=== PATIENT | female | born 1940 | race Caucasian/White ===

== ENCOUNTER → 2017-11-05 09:16 | Outpatient (CLI) | payer MEDICARE, SELFPAY ==
[2017-11-05 12:44] LABS: Vitamin B12 411 pg/mL (211-911)
[2017-11-05 16:28] LABS: ALB/GLOB Ratio 1.1 RATIO (0.9-2.4); AST(SGOT) 25 U/L (15-37); Alanine Aminotransfer ALT/SGPT 23 U/L (13-56); Albumin, Serum 3.8 g/dL (3.2-5.0); Alkaline Phosphatase 89 U/L (45-117); Anion Gap 10 (5-15); BUN 12 mg/dL (7-18); BUN/Creat Ratio 14.8 RATIO (10-20); CRP < 2.90 mg/L (0.0-3.0); Calcium,Total 8.6 mg/dL (8.5-10.1); Chloride 96 mmol/L (98-107); Creatinine, Serum 0.81 mg/dL (0.55-1.02); EST Glomerular Filtration Rate 73 mL/min (>60); Est Glom Filt Rate - Afr Amer 88 mL/min (>60); Globulin 3.4 g/dL (2.2-4.2); Glucose 90 mg/dL (74-106); Potassium 4.5 mmol/L (3.5-5.1); Protein, Total 7.2 g/dL (6.4-8.2); Sodium Level 137 mmol/L (136-145)
[2017-11-09 12:52] LABS: ANTINUCLEAR ANTIBODIES DIRECT Negative (Negative)
== END ==
PROVIDERS: Family Provider Family Medicine; PCP Family Medicine; Visit Provider Family Medicine
DX: R53.82 Chronic fatigue, unspecified (principal); G62.9 Polyneuropathy, unspecified; G47.00 Insomnia, unspecified; R06.89 Other abnormalities of breathing
CPT/HCPCS: 36415; 80053; 82607; 86038; 86140; 86225; 86235

== ENCOUNTER → 2017-12-16 12:09 | Outpatient (CLI) | payer MEDICARE, SELFPAY ==
[2017-12-16 13:27] LABS: Hematocrit 40.3 % (37-47); Hemoglobin 13.3 g/dl (12.0-15.0); Mean Corpuscular Hgb 30.8 pg (27.0-32.0); Mean Corpuscular Volume 93.3 fL (81-99); Mean Platelet Vol. 10.7 fl (6.2-12.0); Platelet Count 206 K/mm3 (150-450); RBC Distribution Width SD 41.1 fl (35.1-43.9); Red Blood Count 4.32 M/mm3 (4.2-5.4); Scan Indicated on CBC? Y/N NO; White Blood Count 4.7 K/mm3 (4.4-11.0)
== END ==
PROVIDERS: Family Provider Family Medicine; PCP Family Medicine; Visit Provider Nurse Practitioner Acute Care
DX: G25.81 Restless legs syndrome (principal)
CPT/HCPCS: 36415; 85027

== ENCOUNTER → 2017-12-29 20:17 | Outpatient (CLI) | payer MEDICARE, SELFPAY | PROVIDERS: Family Provider Family Medicine; PCP Family Medicine; Visit Provider Nurse Practitioner Acute Care | DX: G47.10 Hypersomnia, unspecified (principal) | CPT/HCPCS: 95810 ==

== ENCOUNTER → 2018-01-07 10:08 | Outpatient (CLI) | payer MEDICARE, SELFPAY | PROVIDERS: Family Provider Family Medicine; PCP Family Medicine; Visit Provider Family Medicine | DX: R53.82 Chronic fatigue, unspecified (principal); F09 Unspecified mental disorder due to known physiological condition; I49.9 Cardiac arrhythmia, unspecified | CPT/HCPCS: 36415; 82533 ==

== ENCOUNTER → 2018-01-27 20:25 | Outpatient (CLI) | payer MEDICARE, SELFPAY | PROVIDERS: Family Provider Family Medicine; PCP Family Medicine; Visit Provider Nurse Practitioner Acute Care | DX: G47.33 Obstructive sleep apnea (adult) (pediatric) (principal) | CPT/HCPCS: 95811 ==

== ENCOUNTER → 2018-03-04 08:38 | Outpatient (CLI) | payer MEDICARE, SELFPAY | PROVIDERS: Family Provider Family Medicine; PCP Family Medicine; Visit Provider Internal Medicine Critical Care Medicine | DX: G47.33 Obstructive sleep apnea (adult) (pediatric) (principal) | CPT/HCPCS: 98960; G0463 ==

== ENCOUNTER → 2018-03-30 08:54 | Outpatient (CLI) | payer MEDICARE, SELFPAY ==
--- NOTE | 2018-03-30 14:31 | NEURO ---
NCS and/or EMG Patient Report Ordering Doctor: Christiano Diehl DATE OF SERVICE: 03/30/18 Rosenda Browne is a 77-year-old female presents for electrodiagnostic testing of the lower limbs. She has chief complaint of numbness and tingling in both legs, worsening over the past few years. Electrodiagnostic findings: Right peroneal motor nerve demonstrates prolonged distal latency with normal amplitude and conduction velocity. Normal left peroneal motor response. Normal tibial motor response bilaterally. Borderline prolonged right common peroneal and left tibial F wave. H reflex prolonged bilaterally. Absent right sural response. Prolonged left sural latency. Absent right medial plantar response needle EMG testing shows no evidence of denervation in any muscles tested. Motor unit action potentials were of normal amplitude and duration. Electrodiagnostic impression: This is an abnormal study in the lower limbs. 1. Electrodiagnostic findings suggestive of peripheral polyneuropathy, with primary involvement of sensory nerve fibers. 2. No electrodiagnostic evidence for lumbosacral radiculopathy. If there are any further questions, please do not hesitate to contact me
== END ==
PROVIDERS: Family Provider Family Medicine; PCP Family Medicine; Referring Provider Family Medicine; Visit Provider Family Medicine
DX: G62.9 Polyneuropathy, unspecified (principal); R20.2 Paresthesia of skin
CPT/HCPCS: 95886; 95913

== ENCOUNTER → 2018-04-12 11:54 | Outpatient (CLI) | payer MEDICARE, SELFPAY ==
[2018-04-18 16:07] LABS: Lyme IgG P18 Ab Absent (.); Lyme IgG P23 Ab Absent (.); Lyme IgG P28 Ab Absent (.); Lyme IgG P30 Ab Absent (.); Lyme IgG P39 Ab Absent (.); Lyme IgG P41 Ab Absent (.); Lyme IgG P45 Ab Absent (.); Lyme IgG P58 Ab Absent (.); Lyme IgG P66 Ab Absent (.); Lyme IgG P93 Ab Absent (.); Lyme IgM P23 Ab Present (.); Lyme IgM P39 Ab Absent (.); Lyme IgM P41 Ab Absent (.)
[2018-04-20 13:10] LABS: Hep C Antibodies <0.1 s/co ratio (0.0-0.9); Lead, Blood Adult 16+yrs 2 ug/dL (0-4); Lyme IgG WB Interpretation Negative (.); Lyme IgM WB Interpretation Negative (.)
== END ==
PROVIDERS: Visit Provider Family Medicine
DX: F09 Unspecified mental disorder due to known physiological condition (principal); G62.9 Polyneuropathy, unspecified; R53.82 Chronic fatigue, unspecified
CPT/HCPCS: 36415; 83655; 86617; 86803

== ENCOUNTER → 2018-05-20 10:14 | Outpatient (CLI) | payer MEDICARE, SELFPAY ==
[2018-04-13 10:25] VITALS: BMI 21.6
[2018-05-20 11:25] LABS: Vitamin B12 369 pg/mL (211-911)
[2018-05-20 11:32] LABS: Ferritin 94 ng/mL (8-252); Iron 84 ug/dL (50-170); Iron Binding Capacity,Total 322 ug/dL (250-450); PERCENT IRON SATURATION 26.1 % (15.0-55.0)
--- OUTSIDE RECORDS SUMMARY | 2018-07-15 05:18 | XMS RPT_ITS ---
:1940 Author Organization [place] Support Name Relationship Address Phone REDSHANNAN ONTIVEROSELE Unavailable Unavailable + REBECA LARA Unavailable Unavailable + [facility] [place] [place] [address] R Unavailable Unavailable Unavailable TERRY OSCAR Unavailable . + ., [place] . REBECA LARA Unavailable . + [facility] [place] [address] R Unavailable Unavailable Unavailable CELESTINA TERRY Unavailable . + ., [place] . REBECA LARA Unavailable . + [facility] [place] [address] R Unavailable Unavailable Unavailable REDWESTON TERRY Unavailable Unavailable + REBECA LARA Unavailable Unavailable + [facility] [place] [address] R Unavailable Unavailable Unavailable REBECA LARA Unavailable [address] + [place] [address] R Unavailable Unavailable Unavailable REBECA LARA Unavailable [address] + [place] [address] R Unavailable Unavailable Unavailable REBECA LARA Unavailable [address] + [place] [address] R Unavailable Unavailable Unavailable REBECA LARA Unavailable [address] + [place], [place] R Unavailable Unavailable Unavailable REBECA LARA Unavailable [address] + [place], [place] R Unavailable Unavailable Unavailable REBECA LARA Unavailable [address] + [place], [place] R Unavailable Unavailable Unavailable REBECA LARA Unavailable [address] + [place], [place] R Unavailable Unavailable Unavailable REBECA LARA Unavailable [address] + [place], [place] / R Unavailable Unavailable Unavailable LARA, REBECA Unavailable [address] + [place], [place] / R Unavailable Unavailable Unavailable LARA, REBECA Unavailable [address] + [place], [place] / R Unavailable Unavailable Unavailable LARA, REBECA Unavailable [address] + [place], [place] / R Unavailable Unavailable Unavailable LARA, REBECA Unavailable [address] + [place], [place] / R Unavailable Unavailable Unavailable LARA, REBECA Unavailable [address] + [place], [place] / R Unavailable Unavailable Unavailable LARA, REBECA Unavailable [address] + [place], [place] / R Unavailable Unavailable Unavailable Care Team Providers Name Role Phone Catherine Diehl Attending Unavailable Shanita, Catherine Primary Care Unavailable Tania Yabrra Attending Unavailable Shanita, Catherine Primary Care Unavailable Shanita, Catherine Attending Unavailable Shanita, Catherine Referring Unavailable Shanita, Catherine Primary Care Unavailable Soumya Milner Attending Unavailable Soumya Milner Referring Unavailable Shanita, Catherine Primary Care Unavailable Tania Ybarra Attending Unavailable Primay Care Physicia, No Primary Care Unavailable Deana, [place] Attending Unavailable Deana, Benji Referring Unavailable Laureano Trevizo Attending Unavailable Primay Care Physicia, No Primary Care Unavailable Scar Boyle D.O. Attending Unavailable Primay Care Physicia, No Referring Unavailable Laureano Trevizo Attending Unavailable Primay Care Physicia, No Primary Care Unavailable Tania Ybarra Attending Unavailable Shanita, Catherine Referring Unavailable Shanita, Catherine Attending Unavailable Shanita, Catherine Primary Care Unavailable Tania Ybarra Attending Unavailable Tania Ybarra Referring Unavailable Shanita, Catherine Primary Care Unavailable Tania Ybarra Attending Unavailable Shanita, Catherine Referring Unavailable Shanita, Catherine Attending Unavailable Scar Boyle D.O. Attending Unavailable Shanita, Catherine Primary Care Unavailable Scar Boyle D.O. Attending Unavailable Shanita, Catherine Referring Unavailable Tania Ybarra Attending Unavailable Shanita, Catherine Referring Unavailable Tania Ybarra Attending Unavailable Shanita, Catherine Primary Care Unavailable LAUREANO TREVIZO Attending Unavailable LAUREANO TREVIZO Referring Unavailable JUAN JOSE DAVIS JR Attending Unavailable CATHERINE DIEHL Referring Unavailable SANTHOSH, LAUREANO E Attending Unavailable KALI TREVIZONETH E Referring Unavailable Landon Otto Admitting Unavailable Landon Otto Attending Unavailable Landon Mcpherson Primary Care Unavailable Landon Otto Attending Unavailable Landon Mcpherson Primary Care Unavailable Landon Otto Admitting Unavailable JUAN JOSE DAVIS JR Attending Unavailable SANTHOSH, LAUREANO E Referring Unavailable SANTHOSH, LAUREANO E Attending Unavailable SANTHOSH, LAUREANO E Referring Unavailable SANTHOSH, LAUREANO Attending Unavailable SANTHOSH, LAUREANO Referring Unavailable SANTHOSH, LAUREANO Attending Unavailable SANTHOSH, LAUREANO Referring Unavailable SANTHOSH, LAUREANO Attending Unavailable SANTHOSH, LAUREANO Referring Unavailable IMCA Primary Care Unavailable SANTHOSH, LAUREANO Attending Unavailable SANTHOSH, LAUREANO Referring Unavailable IMCA Primary Care Unavailable JUAN JOSE DAVIS Attending Unavailable IMCA Referring Unavailable IMCA Primary Care Unavailable PROBLEMS PROBLEMS DATE TYPE CONDITION / CODE ATTENDING STATUS SOURCE 04/13/2018 Unknown F70 - Mild Ybarra, 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 / Hospital F70(ICD-10) Repository 04/12/2018 Unknown R53.82 - Chronic ShanitaCatherine carrillo Active [place] fatigue, unspecified Community / R53.82(ICD-10) Hospital Repository 04/12/2018 Unknown 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, Catherine Active [place] Polyneuropathy, Community unspecified / Hospital G62.9(ICD-10) Repository 04/12/2018 Unknown 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 Community to known Hospital physiological Repository condition / F09(ICD-10) 03/21/2018 Active Restless legs DAVIS JR, Active [place] syndrome / [facility] Other G25.81(ICD-10) [place] Repository 03/21/2018 Active Obstructive sleep ROBBIN JR, Active [place] apnea (adult) [facility] Other (pediatric) / [place] G47.33(ICD-10) Repository 03/21/2018 Active Other malaise / DAVIS JR, Active [place] R53.81(ICD-10) [facility] Other [place] Repository 03/21/2018 Active Other fatigue / DAVIS JR, Active [place] R53.83(ICD-10) [facility] [place] Repository 03/21/2018 Active Anesthesia of skin / DAVIS JR, Active [place] R20.0(ICD-10) [facility] Repository 02/23/2018 Unknown G47.33 - Obstructive Scar Boyle, Active [place] sleep apnea (adult) D.O. Community (pediatric) / Hospital G47.33(ICD-10) Repository 12/29/2017 Unknown G47.10 - Hypersomnia, Ybarra, Active [place] unspecified / [facility] G47.10(ICD-10) Hospital Repository 12/16/2017 Unknown G25.81 - Restless Ybarra, Active [place] legs syndrome / [facility] G25.81(ICD-10) Hospital Repository 11/05/2017 Unknown G47.00 - Insomnia, Catherine Diehl Active [place] unspecified / [facility] G47.00(ICD-10) Hospital Repository 11/05/2017 Unknown R06.89 - Other Catherine Diehl Active [place] abnormalities of Community breathing / Hospital R06.89(ICD-10) Repository 10/26/2017 Active Supraventricular SANTHOSH, Active [place] tachycardia / [facility] Other I47.1(ICD-10) [place] Repository 06/23/2017 Active Cardiac arrhythmia, SANTHOSH, Active [place] unspecified / [facility] Other I49.9(ICD-10) [place] Repository 06/23/2017 Admitting Unknown / SANTHOSH, Active [place] [facility] diagnosis UNK(Unknown) [facility] Repository 07/22/2017 Unknown R06.09 - Other forms Santhosh, Active [place] of dyspnea / [facility] R06.09(ICD-10) Hospital Repository 07/13/2017 Unknown R06.02 - Shortness of Deana, [place] Active [place] breath / Community R06.02(ICD-10) Hospital Repository PROCEDURES PROCEDURES No Procedure Records FoundRESULTS RESULTS VITAMIN B12 Collected: 05/20/2018 Status: F Source: [place] 10:22 AM [facility] REPOSITORY TYPE CODE TESTS RESULT OUT OF RANGE REFERENCE UNITS LAB L503.0105 211-911 pg/mL Normal Vitamin B12 369 Performed By: #### L503.0105 #### [facility] [address] [place], [address] IRON+IRON BINDING Collected: 05/20/2018 Status: F Source: [place] 10:22 AM [facility] REPOSITORY Order Comment: Is Patient Taking Vitamins or Folic Acid Supplements? N TYPE CODE TESTS RESULT OUT OF RANGE REFERENCE UNITS LAB L503.6075 250-450 ug/dL TIBC Normal 322 LAB L503.6150 50-170 ug/dL IRON Normal 84 LAB L503.6250 15.0-55.0 % IRON Normal SATURATION 26.1 Performed By: #### L503.6030, L503.6550, L506.0250 #### [facility] [address] [place], [address] FERRITIN Collected: 05/20/2018 Status: F Source: [place] 10:22 AM [facility] REPOSITORY Order Comment: Is Patient Taking Vitamins or Folic Acid Supplements? N TYPE CODE TESTS RESULT OUT OF RANGE REFERENCE UNITS LAB L503.6550 8-252 ng/mL Normal FERRITIN 94 Performed By: #### L503.6030, L503.6550, L506.0250 #### [facility] [address] [place], [address] FOLATES, (FOLIC ACID) Collected: 05/20/2018 Status: F Source: [place] 10:22 AM [facility] REPOSITORY Order Comment: Is Patient Taking Vitamins or Folic Acid Supplements? N TYPE CODE TESTS RESULT OUT OF RANGE REFERENCE UNITS LAB L506.0250 3.1-55.4 ng/mL Normal FOLATES 15.90 Performed By: #### L503.6030, L503.6550, L506.0250 #### [facility] [address] 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 [place] HICKS Fatigue ADHERENCE TO GUIDELINES VINCENT-I or ARB for HF with prior LVEF<40 (NQF 0081) - N/A ASA or Plavix for ASHD (NQF 0067) - N/A Beta lele for ASHD with prior NE or prior LVEF<40 (NQF 0070) - N/A Beta lele for HF with prior LVEF<40 (NQF 0083) - N/A VINCENT-I or ARB for ASHD with DM or prior LVEF<40 (NQF 0066) - N/A Statin therapy for ASHD or FHL or DM - N/A BMI documented and plan if >25 (NQF 0421) - lifestyle recommendation form Tobacco use screening and referral (NQ 0028) - lifestyle recommendation form Recommendation for whole food, plant based diet - lifestyle recommendation form CLINICAL IMPRESSION/PLAN: Zoe Cabrales has frequent ventricular ectopy as well as history of SVT. She would benefit from suppression of her ventricular arrhythmia. She is willing to try low-dose verapamil and I will send a new prescription for her. I've asked her to call me with vital signs in one week. Once we achieve a reasonable dose, Holter monitor can be repeated to see if it is efficacious at suppressing her ventricular ectopy, which was as much as 16% on her Holter monitor. I will see her in 2 months or as needed. I've asked her to call me promptly should she have any side effects from the verapamil. Written and verbal health teaching given to patient, patient verbalizes understanding and agrees with treatment plan. DIAGNOSIS FOR VISIT: Ventricular arrhythmia HISTORY OF PRESENT ILLNESS Zoe Cabrales returns for follow-up of her cardiac arrhythmias. She reports stable exercise tolerance. She's had no chest discomfort. She denies orthopnea, edema, syncope, TIAs, amaurosis and claudication. She's had rare sensation of palpitation. However, her monitor occasionally reads irregular heart rates. ALLERGIES: ALLERGIES No Known Allergies CURRENT OUTPATIENT MEDICATIONS: gabapentin (NEURONTIN) 300 mg capsule Take 300 mg by mouth four times daily. CPAP colestipol (COLESTID) 1 gram tablet Take 1 tablet by mouth twice daily. cholecalciferol (VITAMIN D) 1,000 unit tab tablet Take 1 tablet by mouth once daily. armodafinil (NUVIGIL) 150 mg tab Take 1 tablet by mouth once daily for 30 days. clonazePAM (KLONOPIN) 0.5 mg tablet Take 1/2 tablet at bedtime. escitalopram oxalate (LEXAPRO) 10 mg tablet Take 1 tablet by mouth once daily. PHYSICAL EXAMINATION: VITAL SIGNS: BP 128/55 Pulse 72 Ht 5' 7 (1.70m) Wt 143 lb 1.6 oz (64.9kg) BMI 22.41 kg/(m2). Chest: Clear to auscultation. Trachea is midline. Air entry is equal. Cardiac: Bigeminal rhythm. S1 and S2 are normal. PMI is nondisplaced. There is a soft systolic ejection murmur. Carotids are brisk without bruits. JVP is less than 10 cm. Abdomen: Soft and nontender. There are no pulsatile masses or bruits. No liver enlargement. Bowel sounds are active. Extremities: No edema. Pulses are intact and symmetrical. Recent labs reviewed. Vitamin D level has improved. Thyroid is normal. 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 [place] HICKS Fatigue ADHERENCE TO GUIDELINES VINCENT-I or ARB for HF with prior LVEF<40 (NQF 0081) - N/A ASA or Plavix for ASHD (NQF 0067) - N/A Beta lele for ASHD with prior NE or prior LVEF<40 (NQF 0070) - N/A Beta lele for HF with prior LVEF<40 (NQF 0083) - N/A VINCENT-I or ARB for ASHD with DM or prior LVEF<40 (NQF 0066) - N/A Statin therapy for ASHD or FHL or DM - N/A BMI documented and plan if >25 (NQF 0421) - lifestyle recommendation form Tobacco use screening and referral (NQF 0028) - lifestyle recommendation form Recommendation for whole food, plant based diet - lifestyle recommendation form CLINICAL IMPRESSION/PLAN: Zoe Cabrales has frequent ventricular ectopy as well as history of SVT. She would benefit from suppression of her ventricular arrhythmia. She is willing to try low-dose verapamil and I will send a new prescription for her. I've asked her to call me with vital signs in one week. Once we achieve a reasonable dose, Holter monitor can be repeated to see if it is efficacious at suppressing her ventricular ectopy, which was as much as 16% on her Holter monitor. I will see her in 2 months or as needed. I've asked her to call me promptly should she have any side effects from the verapamil. Written and verbal health teaching given to patient, patient verbalizes understanding and agrees with treatment plan. DIAGNOSIS FOR VISIT: Ventricular arrhythmia HISTORY OF PRESENT ILLNESS Zoe Cabrales returns for follow-up of her cardiac arrhythmias. She reports stable exercise tolerance. She's had no chest discomfort. She denies orthopnea, edema, syncope, TIAs, amaurosis and claudication. She's had rare sensation of palpitation. However, her monitor occasionally reads irregular heart rates. ALLERGIES: ALLERGIES No Known Allergies CURRENT OUTPATIENT MEDICATIONS: gabapentin (NEURONTIN) 300 mg capsule Take 300 mg by mouth four times daily. CPAP colestipol (COLESTID) 1 gram tablet Take 1 tablet by mouth twice daily. cholecalciferol (VITAMIN D) 1,000 unit tab tablet Take 1 tablet by mouth once daily. armodafinil (NUVIGIL) 150 mg tab Take 1 tablet by mouth once daily for 30 days. clonazePAM (KLONOPIN) 0.5 mg tablet Take 1/2 tablet at bedtime. escitalopram oxalate (LEXAPRO) 10 mg tablet Take 1 tablet by mouth once daily. PHYSICAL EXAMINATION: VITAL SIGNS: BP 128/55 Pulse 72 Ht 5' 7 (1.70m) Wt 143 lb 1.6 oz (64.9kg) BMI 22.41 kg/(m2). Chest: Clear to auscultation. Trachea is midline. Air entry is equal. Cardiac: Bigeminal rhythm. S1 and S2 are normal. PMI is nondisplaced. There is a soft systolic ejection murmur. Carotids are brisk without bruits. JVP is less than 10 cm. Abdomen: Soft and nontender. There are no pulsatile masses or bruits. No liver enlargement. Bowel sounds are active. Extremities: No edema. Pulses are intact and symmetrical. Recent labs reviewed. Vitamin D level has improved. Thyroid is normal. Electronically Signed: Laureano Trevizo MD April 29, 2018 11:14 AM CC: Catherine Diehl, DO Laureano Trevizo MD 04/29/2018 11:19 AM Signed LIFESTYLE CHANGE A healthy lifestyle is the most important component of your overall treatment plan. 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 EAT A WHOLE FOOD, PLANT BASED DIET The nutrition your body gets is more important than the medicine you take. What matters most is the overall way you eat. We encourage you to minimize the use of animal products (which include dairy and all meats except fatty fish) and use whole, unprocessed plant foods to provide your protein, vitamins and other nutrients. We have a lot of information to share with you on this topic. This is not a diet. It is a way of life that you will keep with you. EXERCISE REGULARLY It is not important to spend hours in the gym, lifting weights and perspiring heavily. A total of 2-3 hours per week of aerobic (causing you to be moderately short of breath) exercise is sufficient to improve your health. Talk to us before you begin a new exercise program, if you have heart disease or experience shortness of breath or chest pain. REDUCE STRESS Chronic emotional and physical stress leads to disease. Ways of reducing stress include meditation, visualization, prayer, yoga and other forms of relaxation therapy. Consistency is the durham. Find a technique that works for you and do it every day. CULTIVATE RELATIONSHIPS Loneliness and isolation have a major negative impact on health. Seek out others who can love, care for and nurture you. Avoid hurtful relationships. MAINTAIN IDEAL BODY WEIGHT The best way to do this is to do all the things above. Our bodies naturally find the right weight if we keep moving and feed ourselves the right food. If your BMI is greater than 25, we strongly recommend a referral to a weight management program. Please speak to us or your family physician about available programs. AVOID NICOTINE IN ALL FORMS This includes all tobacco products, whether chewed, smoked, vaped, or rubbed on the skin. Smoking cessation programs, which can make use of tobacco substitutes, medications to suppress cravings and behavior management, are available. Please contact your family physician about programs in your area. Referring Provider: LAUREANO TREVIZO [[id number]] Allergies As of Date: 04/29/2018 (No Known Allergies) Date Reviewed: 04/29/2018 Reviewed by: Mar Buck MA - Fully Assessed Reason for Visit: Established Patient [175] Primary Visit Diagnosis:SVT (supraventricular tachycardia) (HCC) [I47.1] Other Visit Diagnosis:Ventricular arrhythmia [I49.9] Order(s):verapamil ER (VERELAN) 120 mg 24 hr capsuleTake 1 capsule by mouth once daily.Disp: 30 capsuleRfl: 6 Prescriptions as of 04/29/2018 Sig: GABAPENTIN 300 MG CAPSULE Take 300 mg by mouth four lisha* CPAP COLESTIPOL 1 GRAM TABLET Take 1 tablet by mouth twice * CHOLECALCIFEROL (VITAMIN D3) * Take 1 tablet by mouth once d* VERAPAMIL ER 120 MG 24 HR CAP* Take 1 capsule by mouth once * ARMODAFINIL 150 MG TABLET Take 1 tablet by mouth once d* CLONAZEPAM 0.5 MG TABLET Take 1/2 tablet at bedtime. ESCITALOPRAM 10 MG TABLET Take 1 tablet by mouth once d* Patient taking differently: Take 20 mg by mouth once benji* Problem List As Of Date 04/29/2018 Noted Resolved SVT (supraventricular tachycardia) (HCC) [I47.1]INVALID FOR* Other instructions from your clinician: LIFESTYLE CHANGE A healthy lifestyle is the most important component of your overall treatment plan. 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 EAT A WHOLE FOOD, PLANT BASED DIET The nutrition your body gets is more important than the medicine you take. What matters most is the overall way you eat. We encourage you to minimize the use of animal products (which include dairy and all meats except fatty fish) and use whole, unprocessed plant foods to provide your protein, vitamins and other nutrients. We have a lot of information to share with you on this topic. This is not a diet. It is a way of life that you will keep with you. EXERCISE REGULARLY It is not important to spend hours in the gym, lifting weights and perspiring heavily. A total of 2-3 hours per week of aerobic (causing you to be moderately short of breath) exercise is sufficient to improve your health. Talk to us before you begin a new exercise program, if you have heart disease or experience shortness of breath or chest pain. REDUCE STRESS Chronic emotional and physical stress leads to disease. Ways of reducing stress include meditation, visualization, prayer, yoga and other forms of relaxation therapy. Consistency is the durham. Find a technique that works for you and do it every day. CULTIVATE RELATIONSHIPS Loneliness and isolation have a major negative impact on health. Seek out others who can love, care for and nurture you. Avoid hurtful relationships. MAINTAIN IDEAL BODY WEIGHT The best way to do this is to do all the things above. Our bodies naturally find the right weight if we keep moving and feed ourselves the right food. If your BMI is greater than 25, we strongly recommend a referral to a weight management program. Please speak to us or your family physician about available programs. AVOID NICOTINE IN ALL FORMS This includes all tobacco products, whether chewed, smoked, vaped, or rubbed on the skin. Smoking cessation programs, which can make use of tobacco substitutes, medications to suppress cravings and behavior management, are available. Please contact your family physician about programs in your area. Prescriptions ordered this encounter Disp Refills Start End VERAPAMIL ER 120 MG 24 HR CAPSULE,EX* 30 c* 6 04/29/2018 Route: ORAL Sig: Take 1 capsule by mouth once daily. Encounter Status:Closed by LAUREANO TREVIZO MD on 04/29/18 PULMONARY VISIT REPORT Observed: 04/15/2018 Status: F Source: [place] 1:26 PM [facility] REPOSITORY [facility] [address] [place] [address] OFFICE VISIT Date of Service: 04/13/18 MR#: [id number] Acct: [id number] Name: ZOE CABRALES Rep #: [id number] : 1940 Provider: Tania Ybarra Age/Sex: 77/F Location: [facility] Status: Signed Assessment AND Plan 1. DHEERAJ (obstructive sleep apnea) G47.33 Plan Patient is using and benefiting from Pap therapy. No indication for titration study at this time. Continue to encourage weight loss. Contact the office for any new or worsening symptoms in the meantime. Follow-up in 6 months. 2. Restless legs syndrome (RLS) G25.81 Plan This patient was previously following with a neurologist regarding her restless leg syndrome and other diagnoses. She is interested in establishing care with a local neurologist, will be referred appropriately. Discussed with the patient that if the neurologist would like to also be in control of her DHEERAJ treatment that we would be in agreement with that, however if they would like to manage her other diagnosis and leave the DHEERAJ test we would be happy to continue to take care of her. I am willing to refill her gabapentin until she can get in with Dr. Chino's office. Plan Detail Other Orders Referrals: Other Medications New: Follow Up 6 Months (DMB) HPI 6 wk FU: Chief Complaint: PAP Ed follow-up HPI Comments Details: Zoe is a 77 year old female that appears healthy. Here today for follow-up for PAP ed and PAP compliance. She is using PAP therapy and is benefitting from it. She is not experiencing dry mouth. She states that she is using the nose-pillows and they work well, and when she notices leaks, she makes manual adjustments. She said that it mostly happens because she sleeps on her side. She denies fever, chills, cough and nasal discharge; she has not required any recent medical interventions. She is requesting refills for her gabapentin and her clonazepam, these were previously prescribed by a neurologist that she was seen. She is interested in establishing care with a local neurologist. 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 Accompanied by: Self Is patient in pain?: No Allergies No Known Allergies Allergy (Unverified 04/13/18 07:32) Medications cholecalciferol (vitamin D3) 1,000 unit capsule 1,000 unit PO ONCE 05/31/17 [History Confirmed 04/13/18] clonazepam 0.5 mg tablet 0.5 mg PO QHS 05/31/17 [History Confirmed 04/13/18] escitalopram 20 mg tablet 20 mg PO QDAY tab 02/23/18 [History Confirmed 04/13/18] colestipol 1 gram tablet 1 g PO BID tab 04/13/18 [History Confirmed 04/13/18] gabapentin 300 mg capsule 300 mg PO .qid #120 cap 04/15/18 [Rx Confirmed 04/15/18] [facility] History Fatigue (Chronic) Hypercapnia (Chronic) Mild mental slowing (Chronic) Osteoarthritis (Chronic) Restless leg syndrome (Chronic) Supraventricular tachycardia (Chronic) Weakness (Chronic) Surgical History H/O prior ablation treatment (Resolved) S/P ORIF (open reduction internal fixation) fracture (Resolved) Social History Smoking Status: Former smoker quit date: 06/21/64 how long ago did patient quit smokin alcohol intake: never substance use type: does not use Review of Systems Const CONSTITUTIONAL: Negative anorexia, body ache, chills, daytime sleepiness, fever(s), night sweats, oral thrush, stops breathing during sleep, weight loss, sleeping in chair, fatigue, weight loss, weight gain, frequent colds, seasonal allergies, other, headache(s) or orthopnea EETM Ear Nose Throat Mouth: Positive hearing normal; negative hard of hearing, hoarseness, dry mouth in morning, change in vision, itchy eyes, eye pain, swallowing Difficulty, ear pain, nose bleed, headache(s), mouth pain, nasal congestion, nasal discharge, post nasal drip, sinus pain, sinus pressure, sore throat or other Cardio Cardiovascular: Negative chest pain, chest pain at rest, chest pain with activity, irregular heart rhythm, edema, shortness of breath when lying down, palpitations, murmur or other Resp Respiratory: Positive as per HPI; negative shortness of breath, pain with cough, wheezing, chest congestion, cough, chest tightness, pain on inspiration, inhalers, increase use of rescue inhalers, snoring, apnea or other Gastro Gastrointestional: Negative bloody stools, change in appetite, difficulty swallowing, reflux, hematemesis, melena stool, loose stool, constipation or other Genitourinary: Negative blood in urine, nocturia, pain with urination or other Musc Musculoskeletal: Negative body pain, back pain, neck pain or other Skin/Breast Skin/Breast: Negative dry skin, itching, rash, unusual bruising, breast lump or other Neuro Neurological: Negative restless legs, confusion, weakness or other Psych Psychocological: Negative abnormal sleep pattern, anxiety, thoughts of hurting self/others, hopelessness or other Lymph Lymphatic: Negative easy bleeding, easy bruising, swollen lymph nodes or other Exam Const Constitutional: Positive conversant, cooperative, in no acute respiratory distress and healthy appearing; negative frail appearing, appears older than stated age, wearing supplemental oxygen or dyspenic Head Head: Positive normocephalic and atraumatic Eyes Eye: Positive clear conjunctiva Ears Ear: Positive hearing normal and external ears normal; negative hard of hearing Nose Nose: Positive external nose normal and no nasal discharge; negative epistaxis Mouth Mouth: Positive oral mucosae normal, no lesions, good dentition and crowded posterior oropharynx; negative post nasal drip or oral thrush present Mallampati Score: II: Mallampati Score Neck Neck: Positive normal visual inspection and trachea midline Chest Wall Chest: Positive normal inspection of the chest and symmetric chest movement; negative increased A/P diameter or crepitus Resp lung sounds: Positive clear to auscultation, good air exchange, normal respiratory effort and normal expiratory time; negative wheezes, diminished, wheeze present on forced exhalation, prolonged expiratory time or increased work of breathing Cardio Cardiac: Positive regular rate and regular rhythm; negative murmur GI GI: Positive normal to inspection and normal bowel sounds Genitourinary: Positive deferred Musc Musculoskeletal: Positive steady gait and ROM normal; negative using an assistive device for ambulation Skin Pulmonary Skin Exam: Positive intact; negative rash Pulses Pulse: Yes pulses normal x4 extremities Extremities Extremities: Yes capillary refill normal, No cyanosis, No clubbing, No edema Neuro Neurologic: Yes conversant, Yes no focal neuro deficits, Yes cooperative, Yes normal cognition, Yes understands questions Lymph Lymphatic: No lymphadenopathy, Yes tenderness, No cervical adenopathy Psych Appearance: Positive grossly normal Mental Status: Positive mental status grossly normal Mood: Positive congruent mood Affect: Positive normal affect Coding Level of Care Code Off vis,est,level 4 Diagnoses DHEERAJ (obstructive sleep apnea) G47.33 Restless legs syndrome (RLS) G25.81 04/15/18 1326 <Electronically signed by Tania FRAZIERC> Date Tania Ybarra WILDLIFE TECHNICIAN-C Cosigner Signature: Date (if applicable) CC: Catherine Diehl DO HEPATITIS C ANTIBODIES Collected: 04/12/2018 Status: F Source: [place] 11:57 AM [facility] REPOSITORY TYPE CODE TESTS RESULT OUT OF RANGE REFERENCE UNITS LAB L3100.0650 0.0-0.9 s/co ratio Normal HEP C AB <0.1 Result Comment: Negative: < 0.8 Indeterminate: 0.8 - 0.9 Positive: > 0.9 The CDC recommends that a positive HCV antibody result be followed up with a HCV Nucleic Acid Amplification test (748862). Performed at: [address] [id number] Creative Strategist: Juan Jose Thakur MD, Phone: [phone] Performed at: [address] [id number] Creative Strategist: Chato Lagunas PhD, Phone: [phone] Performed By: #### L3100.0625, L3100.6450, [id number].[id number] #### [facility] (refer to report for specific site) refer to report for address and phone number LEAD, BLOOD ADULT Collected: 04/12/2018 Status: F Source: [place] 16+YRS 11:57 AM [facility] REPOSITORY TYPE CODE TESTS RESULT OUT OF RANGE REFERENCE UNITS LAB L3100.6450 0-4 ug/dL Normal LEAD 2 *Form Result Comment: Analysis by inductively coupled plasma/mass spectrometry (ICP/MS) Environmental Exposure: WHO Recommendation <20 Occupational Exposure: OSHA Lead Std 40 BHARATI 30 Detection Limit = 1 This test was developed and its performance characteristics determined by [employer]. It has not been cleared or approved by the Food and Drug Administration. Performed By: #### L3100.0625, L3100.6450, L7000.5800 #### [facility] (refer to report for specific site) refer to report for address and phone number LYME ANTIBODIES,W BLOT Collected: 04/12/2018 Status: F Source: [place] 11:57 AM [facility] REPOSITORY TYPE CODE TESTS RESULT OUT OF RANGE REFERENCE UNITS LAB L7000.5920 . Normal P93 Ab Absent LAB L7000.5940 . Normal P66 Ab Absent LAB L7000.5960 . Normal P58 Ab Absent LAB L7000.5980 . Normal P45 Ab Absent LAB L7000.6000 . Normal P41 Ab Absent LAB L7000.6020 . Normal P39 Ab Absent LAB L7000.6040 . Normal P30 Ab Absent LAB L7000.6060 . Normal P28 Ab Absent LAB L7000.6080 . Normal P23 Ab Absent LAB L7000.6100 . Normal P18 Ab Absent LAB L7000.6200 . Normal LYME IgG Negative INTERP Result Comment: Positive: 5 of the following Borrelia-specific bands: 18,23,28,30,39,41,45,58, 66, and 93. Negative: No bands or banding patterns which do not meet positive criteria. LAB L7000.6320 . Normal P41 Ab Absent LAB L7000.6340 . Normal P39 Ab Absent LAB L7000.6360 . High P23 Ab Present LAB L7000.6400 . Normal LYME IgM Negative INTERP Result Comment: Note: An equivocal or positive EIA result followed by a negative Western Blot result is considered NEGATIVE. An equivocal or positive EIA result followed by a positive Western Blot is considered POSITIVE by the CDC. Positive: 2 of the following bands: 23,39 or 41 Negative: No bands or banding patterns which do not meet positive criteria. Criteria for positivity are those recommended by CDC/ASTPHLD. p23=Osp C, n22=tvldwthls Note: Sera from individuals with the following may cross react in the Lyme Western Blot assays: other spirochetal diseases (periodontal disease, leptospirosis, relapsing fever, yaws, and pinta); connective autoimmune (Rheumatoid Arthritis and Systemic Lupus Erythematosus and also individuals with Antinuclear Antibody); other infections ([place]brook Spotted Fever; Aria-Flanagan Virus, and Cytomegalovirus). Performed By: #### L3100.0613, L3100.6450, L7000.8213 #### [facility] (refer to report for specific site) refer to report for address and phone number NCS AND/OR EMG Observed: 03/30/2018 Status: F Source: [place] PATIENT 3:21 PM [facility] REPOSITORY [facility] Pulmonary Services/Neurology [address] [place] [address] MR#: [id number] Acct: [id number] Name: ZOE CABRALES Rep #: [id number] : 1940 77 From: Soraya Damian MD Referring Dr: Catherine Diehl DO Status: REG CLI Ordering Dr: Date: Location: [facility] Sex: F C NCS and/or EMG Patient Report Ordering Doctor: Catherine Diehl DATE OF SERVICE: 03/30/18 Zoe Cabrales is a 77-year-old female presents for electrodiagnostic testing of the lower limbs. She has chief complaint of numbness and tingling in both legs, worsening over the past few years. Electrodiagnostic findings: Right peroneal motor nerve demonstrates prolonged distal latency with normal amplitude and conduction velocity. Normal left peroneal motor response. Normal tibial motor response bilaterally. Borderline prolonged right common peroneal and left tibial F wave. H reflex prolonged bilaterally. Absent right sural response. Prolonged left sural latency. Absent right medial plantar response needle EMG testing shows no evidence of denervation in any muscles tested. Motor unit action potentials were of normal amplitude and duration. Electrodiagnostic impression: This is an abnormal study in the lower limbs. 1. Electrodiagnostic findings suggestive of peripheral polyneuropathy, with primary involvement of sensory nerve fibers. 2. No electrodiagnostic evidence for lumbosacral radiculopathy. If there are any further questions, please do not hesitate to contact me 03/30/18 1521 <Electronically signed by Soraya Damian MD> Date Soraya Damian MD CC: Soraya Damian; Catherine Diehl DO Date Dictated: 03/30/18 1431 Date Transcribed: 03/30/181430 Book Cleaner: TRACY Signed PROGRESS Observed: 03/21/2018 Status: COMPLETED Source: [place] 11:22 AM [facility] OTHER CAMPUS REPOSITORY HNO ID: [id number] Author: Juan Jose Davis Jr. Service: (none) Author Type: Physician Type: Progress Notes Filed: 03/21/2018 12:28 PM Note Text: ESTABLISHED PATIENT VISIT HISTORY OF PRESENT ILLNESS: Zoe Cabrales is a 77 year old female, with a PMH significant for: 1. Restless legs syndrome - ICD9: 333.94, ICD10: G25.81 (primary diagnosis) Last visit, symptoms well controlled on Klonopin 0.5mg QHS. 2. Malaise and fatigue - ICD9: 780.79, ICD10: R53.81, R53.83 Etiology uncertain. Patient has head extensive testing per cardiology notes, and has been started on O2 by pulmonary. PCP has also sent off lab work with no abnormal findings. Again, reviewed sleep study with no obvious etiology now that RLS is subjectively controlled. 3. Diarrhea, unspecified type - ICD9: 787.91, ICD10: R19.7 Patient reporting frequent diarrhea last visit and referred to GI. Patient continues to feel like she is in a brain fog. She states that when she fell on concrete 3 years ago and was not herself for 7 days, but then jumps to another topic of her feet being numb and doctors tell her that she should be on gabapentin. I stopped gabapentin on 04/15/17, but now restarted by outside physician (pulmonary) due to patient complaining of feet numbness. Numbness now per patient all the time. Gabapentin now being given at 5PM and at bedtime (300mg). She states she can tell a difference and that it helps after she takes it. She states there is no time the numbness is worse. States gabapentin only lasts about 2 hours. She states she has had 2 more sleep studies in [place] ordered by pulmonary. She just had a study in 2017 that was normal (I have reviewed with patient). She states she was placed on a CPAP machine and that it has not helped clear her brain. She continues on Klonopin at bedtime. I personally called [facility] sleep lab to get results with pt permission and pt sitting next to me during phone call. Titration in 01/2018. However, baseline PSG in 12/2017 showed AHI of 16. Rem 13. Supine index was 0. However this was by 3% AASM guideline scoring. Note patient is Medicare and scoring here at [facility] was 4% by CMS guidelines. In talking to [place] lab, downloads from her PAP show elevated AHI. Patient then after above, indicates CPAP is helping her. States she feels fine on it after thinking for a few minutes. But then states she still has brain fog and everything else. Perhaps I am a little more awake. She denies any cognitive issues. Going back to numbness, states it is from the ankles down. No coloration changes in the feet. She is to have an NCV at [facility]. States activity not effect numbness in feet as I have her walk through the office for some time. No time of day the numbness is worse. She denies feeling sleepy during the day. States that CPAP had no influence on level of wakefulness. Sleeping 8 hours. No RLS symptoms prior to bedtime. Regarding diarrhea, following with GI, and meds are helping. Naming (0-3) 06/21 Memory Words, up to 2 trials: Face, Velvet, Mu-Ism, Salome, Red (no points) 5 of 5 Attention forwards: 2 1 8 5 4 (0-1) 06/21 Attention backwards: 7 4 2 (0-1) 06/21 Tap for the A: F B A C M N A A J K L B A F A K D E A A A J A M O F A A B (1 point if 0 or 1 error) 06/21 Serial subtraction by 7: [id number] (3 points for correct 4 or 5; 2 points for 2 or 3 correct; 1 point for 1 correct) 06/21 Language: repeat: I only know that Chris is the one to help today (0-1) 06/21 Language: repeat: The cat always hid under the couch when dogs were in the room (0-1) 06/21 Abstraction: practice banana-orange=fruit. Then train-bicycle (1) AND watch-ruler (1) total: (2) 2/2 Delayed recall: recall words: face, velvet, christianity, salome, red (0-5) 5/5 Orientation: date(1), month(1), year(1), day(1), place(1), city(1) max 6 points 6/6 Total Score max 30 or 31 30/30 Hearing impaired (Y or N) No Vision impaired (Y or N) No She does tell me when she takes the gabapentin at night without Klonopin, she cannot sleep the entire night. On further discussion, she is only taking 0.25mg QHS. She states if she takes more than this she gets more tired. However, she cannot tell me if she sleeps better at night. Patient then changes history again and states that she has only been taking 0.25mg QHS about 2 weeks ago and prior to that was on 0.5mg QHS but was too tired. Note she never called in to indicate this to us. ESS = 04/13. REVIEW OF SYSTEMS GENERAL:No weight loss, malaise or fevers. HEENT:Negative for frequent or significant headaches, No changes in hearing or vision, no nose bleeds or other nasal problems NECK:Negative for lumps, goiter, pain and significant neck swelling RESPIRATORY: Negative for cough, wheezing or shortness of breath. CARDIOVASCULAR: Negative for chest pain, leg swelling or palpitations. GASTROINTESTINAL: Negative for abdominal discomfort, blood in stools or black stools or change in bowel habits GENITOURINARY: No history of dysuria, frequency or incontinence MUSCULOSKELETAL: Negative for joint pain or swelling, back pain or muscle pain. NEUROLOGIC:Negative for focal numbness or weakness, headaches and dizziness or syncope, vision changes, speech/languag changes - EXCEPT that as per HPI above. SKIN:Negative for lesions, rash, and itching. PSYCHIATRIC: Negative for sleep disturbance, mood disorder and recent psychosocial stressors. HEMATOLOGIC/LYMPHATIC/IMMUNOLOGIC:Negative for prolonged bleeding, bruising easily or swollen nodes. ENDOCRINE: Negative for cold or heat intolerance, polyuria, polydipsia and goiter. The remainder of the ROS was reviewed and is negative. LAB/IMAGING: Those performed since patient's last visit have been reviewed. WBC (k/uL) Date Value 05/24/2017 4.32 RBC (m/uL) Date Value 05/24/2017 4.48 Hemoglobin (g/dL) Date Value 05/24/2017 14.1 Hematocrit (%) Date Value 05/24/2017 42.6 MCV (fL) Date Value 05/24/2017 95.1 MCH (pG) Date Value 05/24/2017 31.5 MCHC (g/dL) Date Value 05/24/2017 33.1 RDW-CV (%) Date Value 05/24/2017 11.7 Platelet Count (k/uL) Date Value 05/24/2017 181 MPV (fL) Date Value 05/24/2017 11.7 Glucose (mg/dL) Date Value 05/24/2017 83 BUN (mg/dL) Date Value 05/24/2017 16 Creatinine (mg/dL) Date Value 05/24/2017 0.87 Sodium (mmol/L) Date Value 05/24/2017 137 Potassium (mmol/L) Date Value 05/24/2017 4.2 Chloride (mmol/L) Date Value 05/24/2017 97 CO2 (mmol/L) Date Value 05/24/2017 29 Calcium (mg/dL) Date Value 05/24/2017 9.2 MEDICATIONS: clonazePAM (KLONOPIN) 0.5 mg tablet TAKE 1 TO 2 TABLETS BY MOUTH ONE HOUR PRIOR TO BEDTIME colestipol (COLESTID) 1 gram tablet Take 1 tablet by mouth twice daily. escitalopram oxalate (LEXAPRO) 10 mg tablet Take 1 tablet by mouth once daily. cholecalciferol (VITAMIN D) 1,000 unit tab tablet Take 1 tablet by mouth once daily. HISTORIES PAST MEDICAL HISTORY Diagnosis Date - Fall - Fx intertrochanteric hip (HCC) s/p ORIF repair - Generalized weakness - Supraventricular tachycardia (HCC) s/p ablation therapy 2004, no recurrences FAMILY HISTORY Problem Relation Age of Onset - Cancer Mother - Cancer Father SOCIAL HISTORY Social History Substance Use Topics - Smoking status: Former Smoker - Smokeless tobacco: Never Used - Alcohol use No PHYSICAL EXAMINATION Blood pressure 142/73, pulse 82, resp. rate 17, height 5' 7 (1.702 m), weight 140 lb (63.5 kg), SpO2 98 %. GENERAL EXAM: General appearance: NAD, pleasant. HEENT: NC/AT, nasal congestion absent, no oral lesions, membranes moist. NECK: No masses, supple. Lungs: CTA bilaterally. CV: RRR nl S1, S2. No carotid bruits. Abd: Soft, nontender, nondistended. Bowel sounds present. Extr: No cyanosis, clubbing or edema. No evidence of fasciculations. Extremity pulses palpable and normal. Skin: Cool to touch. No rash. NEUROLOGICAL EXAM: General: Awake, alert, oriented x3 (person,place,time), speech fluent, no dysarthria; comprehension, naming, repetition intact. CN: PERRL, fundi with no evidence of papilledema, EOMI and without nystagmus, VFF to confrontation, facial sensation and strength are normal and symmetric, hearing is intact to finger rub bilaterally, palate and tongue movements are intact and symmetric. SCM and trapezius strength normal. Motor: Normal tone, bulk and strength (5/5) bilaterally (throughout extremities x4). Reflexes: 2/4 and symmetric, plantar stimulation is flexor. Coordination: FNF, TESFAYE, HTS intact. No tremors. Sensation: Pt is reporting pin and vibration more sensitive on the foot and toes than proximal. Gait: Narrow based and stable with normal stride and arm swing. Normal tandem. Romberg normal. Assessment and Plan: ASSESSMENT/PLAN: 1. RLS (restless legs syndrome) - ICD9: 333.94, ICD10: G25.81 (primary diagnosis) Patient denies symptoms of RLS. However she is a very poor historian. She is sleeping through the night on Klonopin 0.25mg QHS and will continue that dose. She however does have elevated PLMIs on her sleep studies. Yet she feels gabapentin did nothing for her RLS and or awakenings during the night. No changes to meds at this time. 2. DHEERAJ (obstructive sleep apnea) - ICD9: 327.23, ICD10: G47.33 Again prior study at [facility] showed no DHEERAJ. I did receive actual PSG data from [facility]. The AAS AHI was 15.9 However, the AHI by CMS guidelines using 4% desat was 4.9. When reviewing 3% data, it appears respiratory events were scored with arousal and not desaturation. Still uncertain if mild DHEERAJ playing role, and patient not indicating that PAP therapy is making any difference. As Pulmonary has ordered her PAP device and is getting her PAP downloads, would recommend that they continue to treat the DHEERAJ at this time. 3. Malaise and fatigue - ICD9: 780.79, ICD10: R53.81, R53.83 Patient complains of brain fog. Uncertain what is meant by this. Again, poor historian. MOCA normal. In past I have questioned depression or anxiety, but pt denies. She is on Lexapro in AM. Will try patient on Lower dose of Nuvigil (150mg) QAM to see if this improves symptoms. SE and ADRs reviewed with pt. 4. Numbness - ICD9: 782.0, ICD10: R20.0 No signs of neuropathy on exam. No weakness. No sensory loss. Await EMG/NCV results as ordered by outside physicians. Question if small fiber neuropathy. However, pt poor and inconsistent historian making it difficult to determine etiology of symptoms. At end of visit states she has been having the numbness for years, which is inconsistent with any history previously provided to us. Again, without consistent history, difficult to narrow dx. Juan Jose Davis MD I spent 60 minutes in the visit, with more than 50% of the total [id number] time of the visit in counseling / coordination of care. CNOV Observed: 03/21/2018 Status: COMPLETED Source: [place] 11:00 AM [facility] OTHER [facility] REPOSITORY Office Visit (NSAGBA) ZOE CABRALES ([id number]) 1940 F Date Time Provider Department 03/21/18 11:00 AM JUAN JOSE DAVIS JR During your visit today, we recorded the following information about you: Pulse Respiration Blood pressure Weight 82/minute 17/minute 142/73 63.5 kg Height 1.702 m Juan Jose Davis MD 03/21/2018 12:28 PM Signed ESTABLISHED PATIENT VISIT HISTORY OF PRESENT ILLNESS: Zoe Gutierrezsamaria is a 77 year old female, with a PMH significant for: 1. Restless legs syndrome - ICD9: 333.94, ICD10: G25.81 (primary diagnosis) Last visit, symptoms well controlled on Klonopin 0.5mg QHS. 2. Malaise and fatigue - ICD9: 780.79, ICD10: R53.81, R53.83 Etiology uncertain. Patient has head extensive testing per cardiology notes, and has been started on O2 by pulmonary. PCP has also sent off lab work with no abnormal findings. Again, reviewed sleep study with no obvious etiology now that RLS is subjectively controlled. 3. Diarrhea, unspecified type - ICD9: 787.91, ICD10: R19.7 Patient reporting frequent diarrhea last visit and referred to GI. Patient continues to feel like she is in a brain fog. She states that when she fell on concrete 3 years ago and was not herself for 7 days, but then jumps to another topic of her feet being numb and doctors tell her that she should be on gabapentin. I stopped gabapentin on 04/15/17, but now restarted by outside physician (pulmonary) due to patient complaining of feet numbness. Numbness now per patient all the time. Gabapentin now being given at 5PM and at bedtime (300mg). She states she can tell a difference and that it helps after she takes it. She states there is no time the numbness is worse. States gabapentin only lasts about 2 hours. She states she has had 2 more sleep studies in [place] ordered by pulmonary. She just had a study in 2017 that was normal (I have reviewed with patient). She states she was placed on a CPAP machine and that it has not helped clear her brain. She continues on Klonopin at bedtime. I personally called [facility] sleep lab to get results with pt permission and pt sitting next to me during phone call. Titration in 01/2018. However, baseline PSG in 12/2017 showed AHI of 16. Rem 13. Supine index was 0. However this was by 3% AASM guideline scoring. Note patient is Medicare and scoring here at [facility] was 4% by CMS guidelines. In talking to [place] lab, downloads from her PAP show elevated AHI. Patient then after above, indicates CPAP is helping her. States she feels fine on it after thinking for a few minutes. But then states she still has brain fog and everything else. Perhaps I am a little more awake. She denies any cognitive issues. Going back to numbness, states it is from the ankles down. No coloration changes in the feet. She is to have an NCV at [facility]. States activity not effect numbness in feet as I have her walk through the office for some time. No time of day the numbness is worse. She denies feeling sleepy during the day. States that CPAP had no influence on level of wakefulness. Sleeping 8 hours. No RLS symptoms prior to bedtime. Regarding diarrhea, following with GI, and meds are helping. Naming (0-3) 06/21 Memory Words, up to 2 trials: Face, Velvet, Mu-Ism, Salome, Red (no points) 5 of 5 Attention forwards: 2 1 8 5 4 (0-1) 06/21 Attention backwards: 7 4 2 (0-1) 06/21 Tap for the A: F B A C M N A A J K L B A F A K D E A A A J A M O F A A B (1 point if 0 or 1 error) 06/21 Serial subtraction by 7: [id number] (3 points for correct 4 or 5; 2 points for 2 or 3 correct; 1 point for 1 correct) 06/21 Language: repeat: I only know that Chris is the one to help today (0-1) 06/21 Language: repeat: The cat always hid under the couch when dogs were in the room (0-1) 06/21 Abstraction: practice banana-orange=fruit. Then train-bicycle (1) AND watch-ruler (1) total: (2) 2/2 Delayed recall: recall words: face, velvet, christianity, salome, red (0-5) 5/5 Orientation: date(1), month(1), year(1), day(1), place(1), city(1) max 6 points 6/6 Total Score max 30 or 31 30/30 Hearing impaired (Y or N) No Vision impaired (Y or N) No She does tell me when she takes the gabapentin at night without Klonopin, she cannot sleep the entire night. On further discussion, she is only taking 0.25mg QHS. She states if she takes more than this she gets more tired. However, she cannot tell me if she sleeps better at night. Patient then changes history again and states that she has only been taking 0.25mg QHS about 2 weeks ago and prior to that was on 0.5mg QHS but was too tired. Note she never called in to indicate this to us. ESS = 04/13. REVIEW OF SYSTEMS GENERAL:No weight loss, malaise or fevers. HEENT:Negative for frequent or significant headaches, No changes in hearing or vision, no nose bleeds or other nasal problems NECK:Negative for lumps, goiter, pain and significant neck swelling RESPIRATORY: Negative for cough, wheezing or shortness of breath. CARDIOVASCULAR: Negative for chest pain, leg swelling or palpitations. GASTROINTESTINAL: Negative for abdominal discomfort, blood in stools or black stools or change in bowel habits GENITOURINARY: No history of dysuria, frequency or incontinence MUSCULOSKELETAL: Negative for joint pain or swelling, back pain or muscle pain. NEUROLOGIC:Negative for focal numbness or weakness, headaches and dizziness or syncope, vision changes, speech/languag changes - EXCEPT that as per HPI above. SKIN:Negative for lesions, rash, and itching. PSYCHIATRIC: Negative for sleep disturbance, mood disorder and recent psychosocial stressors. HEMATOLOGIC/LYMPHATIC/IMMUNOLOGIC:Negative for prolonged bleeding, bruising easily or swollen nodes. ENDOCRINE: Negative for cold or heat intolerance, polyuria, polydipsia and goiter. The remainder of the ROS was reviewed and is negative. LAB/IMAGING: Those performed since patient's last visit have been reviewed. WBC (k/uL) Date Value 05/24/2017 4.32 RBC (m/uL) Date Value 05/24/2017 4.48 Hemoglobin (g/dL) Date Value 05/24/2017 14.1 Hematocrit (%) Date Value 05/24/2017 42.6 MCV (fL) Date Value 05/24/2017 95.1 MCH (pG) Date Value 05/24/2017 31.5 MCHC (g/dL) Date Value 05/24/2017 33.1 RDW-CV (%) Date Value 05/24/2017 11.7 Platelet Count (k/uL) Date Value 05/24/2017 181 MPV (fL) Date Value 05/24/2017 11.7 Glucose (mg/dL) Date Value 05/24/2017 83 BUN (mg/dL) Date Value 05/24/2017 16 Creatinine (mg/dL) Date Value 05/24/2017 0.87 Sodium (mmol/L) Date Value 05/24/2017 137 Potassium (mmol/L) Date Value 05/24/2017 4.2 Chloride (mmol/L) Date Value 05/24/2017 97 CO2 (mmol/L) Date Value 05/24/2017 29 Calcium (mg/dL) Date Value 05/24/2017 9.2 MEDICATIONS: clonazePAM (KLONOPIN) 0.5 mg tablet TAKE 1 TO 2 TABLETS BY MOUTH ONE HOUR PRIOR TO BEDTIME colestipol (COLESTID) 1 gram tablet Take 1 tablet by mouth twice daily. escitalopram oxalate (LEXAPRO) 10 mg tablet Take 1 tablet by mouth once daily. cholecalciferol (VITAMIN D) 1,000 unit tab tablet Take 1 tablet by mouth once daily. HISTORIES PAST MEDICAL HISTORY Diagnosis Date - Fall - Fx intertrochanteric hip (HCC) s/p ORIF repair - Generalized weakness - Supraventricular tachycardia (HCC) s/p ablation therapy 2004, no recurrences FAMILY HISTORY Problem Relation Age of Onset - Cancer Mother - Cancer Father SOCIAL HISTORY Social History Substance Use Topics - Smoking status: Former Smoker - Smokeless tobacco: Never Used - Alcohol use No PHYSICAL EXAMINATION Blood pressure 142/73, pulse 82, resp. rate 17, height 5' 7 (1.702 m), weight 140 lb (63.5 kg), SpO2 98 %. GENERAL EXAM: General appearance: NAD, pleasant. HEENT: NC/AT, nasal congestion absent, no oral lesions, membranes moist. NECK: No masses, supple. Lungs: CTA bilaterally. CV: RRR nl S1, S2. No carotid bruits. Abd: Soft, nontender, nondistended. Bowel sounds present. Extr: No cyanosis, clubbing or edema. No evidence of fasciculations. Extremity pulses palpable and normal. Skin: Cool to touch. No rash. NEUROLOGICAL EXAM: General: Awake, alert, oriented x3 (person,place,time), speech fluent, no dysarthria; comprehension, naming, repetition intact. CN: PERRL, fundi with no evidence of papilledema, EOMI and without nystagmus, VFF to confrontation, facial sensation and strength are normal and symmetric, hearing is intact to finger rub bilaterally, palate and tongue movements are intact and symmetric. SCM and trapezius strength normal. Motor: Normal tone, bulk and strength (5/5) bilaterally (throughout extremities x4). Reflexes: 2/4 and symmetric, plantar stimulation is flexor. Coordination: FNF, TESFAYE, HTS intact. No tremors. Sensation: Pt is reporting pin and vibration more sensitive on the foot and toes than proximal. Gait: Narrow based and stable with normal stride and arm swing. Normal tandem. Romberg normal. Assessment and Plan: ASSESSMENT/PLAN: 1. RLS (restless legs syndrome) - ICD9: 333.94, ICD10: G25.81 (primary diagnosis) Patient denies symptoms of RLS. However she is a very poor historian. She is sleeping through the night on Klonopin 0.25mg QHS and will continue that dose. She however does have elevated PLMIs on her sleep studies. Yet she feels gabapentin did nothing for her RLS and or awakenings during the night. No changes to meds at this time. 2. DHEERAJ (obstructive sleep apnea) - ICD9: 327.23, ICD10: G47.33 Again prior study at [facility] showed no DHEERAJ. I did receive actual PSG data from [facility]. The AAS AHI was 15.9 However, the AHI by CMS guidelines using 4% desat was 4.9. When reviewing 3% data, it appears respiratory events were scored with arousal and not desaturation. Still uncertain if mild DHEERAJ playing role, and patient not indicating that PAP therapy is making any difference. As Pulmonary has ordered her PAP device and is getting her PAP downloads, would recommend that they continue to treat the DHEERAJ at this time. 3. Malaise and fatigue - ICD9: 780.79, ICD10: R53.81, R53.83 Patient complains of brain fog. Uncertain what is meant by this. Again, poor historian. MOCA normal. In past I have questioned depression or anxiety, but pt denies. She is on Lexapro in AM. Will try patient on Lower dose of Nuvigil (150mg) QAM to see if this improves symptoms. SE and ADRs reviewed with pt. 4. Numbness - ICD9: 782.0, ICD10: R20.0 No signs of neuropathy on exam. No weakness. No sensory loss. Await EMG/NCV results as ordered by outside physicians. Question if small fiber neuropathy. However, pt poor and inconsistent historian making it difficult to determine etiology of symptoms. At end of visit states she has been having the numbness for years, which is inconsistent with any history previously provided to us. Again, without consistent history, difficult to narrow dx. Juan Jose Davis MD I spent 60 minutes in the visit, with more than 50% of the total pdgh-by-limk time of the visit in counseling / coordination of care. Referring Provider: CATHERINE DIEHL [[id number]] Allergies As of Date: 03/21/2018 (No Known Allergies) Date Reviewed: 03/21/2018 Reviewed by: Juan Jose Davis Jr. - Fully Assessed Reason for Visit: Follow Up [171] Primary Visit Diagnosis:RLS (restless legs syndrome) [G25.81] Other Visit Diagnoses:DHEERAJ (obstructive sleep apnea) [G47.33] Malaise and fatigue [R53.81, R53.83] Restless legs syndrome [G25.81] Numbness [R20.0] Order(s):armodafinil (NUVIGIL) 150 mg tabTake 1 tablet by mouth once daily for 30 days.Disp: 30 tabletRfl: 1 clonazePAM (KLONOPIN) 0.5 mg tabletTake 1/2 tablet at bedtime.Disp: 15 tabletRfl: 1 Prescriptions as of 03/21/2018 Sig: COLESTIPOL 1 GRAM TABLET Take 1 tablet by mouth twice * ESCITALOPRAM 10 MG TABLET Take 1 tablet by mouth once d* CHOLECALCIFEROL (VITAMIN D3) * Take 1 tablet by mouth once d* ARMODAFINIL 150 MG TABLET Take 1 tablet by mouth once d* CLONAZEPAM 0.5 MG TABLET Take 1/2 tablet at bedtime. Problem List As Of Date: 03/21/2018 (None) Prescriptions ordered this encounter Disp Refills Start End ARMODAFINIL 150 MG TABLET 30 t* 1 03/21/2018 04/20/2018 Class: Print RX Route: ORAL Sig: Take 1 tablet by mouth once daily for 30 days. CLONAZEPAM 0.5 MG TABLET 15 t* 1 03/21/2018 04/21/2018 Class: Print RX Sig: Take 1/2 tablet at bedtime. Medications Discontinued During This Encounter clonazePAM (KLONOPIN) 0.5 mg tablet 60 t* 0 02/09/2018 03/21/2018 Class: Call Rx Sig: TAKE 1 TO 2 TABLETS BY MOUTH ONE HOUR PRIOR TO BEDTIME Disc: Reason for discontinue is not on file. Disposition: Return in about 2 months (around 05/21/2018). Follow-up and Disposition History Recorded Questionnaire: MOCA Naming (0-3) -> Cmt: 06/21 Memory Words, up to 2 trials: Face, Velvet, Mu-Ism, Salome, Red (no points) -> 5 of 5 Attention forwards: 2 1 8 5 4 (0-1) -> Cmt: 06/21 Attention backwards: 7 4 2 (0-1) -> Cmt: 06/21 Tap for the A: F B A C M N A A J K L B A F A K D E A A A J A M O F A A B (1 point if 0 or 1 error) -> Cmt: 06/21 Serial subtraction by 7: [id number] (3 points for correct 4 or 5; 2 points for 2 or 3 correct; 1 point for 1 correct) -> Cmt: 06/21 Language: repeat: I only know that Chris is the one to help today (0-1) -> Cmt: 06/21 Language: repeat: The cat always hid under the couch when dogs were in the room (0-1) -> Cmt: 06/21 Abstraction: practice banana-orange=fruit. Then train-bicycle (1) AND watch-ruler (1) total: (2) -> Cmt: 2/2 Delayed recall: recall words: face, velvet, christianity, salome, red (0-5) -> Cmt: 5/5 Orientation: date(1), month(1), year(1), day(1), place(1), city(1) max 6 points * Cmt: 11/24 Total Score max 30 or 31 -> Cmt: 30/30 Hearing impaired (Y or N) -> No Vision impaired (Y or N) -> No Encounter Status:Closed by JUAN JOSE DAVIS on 03/21/18 PULMONARY VISIT REPORT Observed: 02/23/2018 Status: F Source: [place] 11:23 AM [facility] [place] [address] [place] [address] OFFICE VISIT Date of Service: 02/23/18 MR#: [id number] Acct: [id number] Name: ZOE CABRALES Rep #: [id number] : 1940 Provider: Scar Boyle D.O. Age/Sex: 77/F [place] [facility] Status: Signed Assessment AND Plan 1. DHEERAJ (obstructive sleep apnea) G47.33 BiPAP 10/6 cm of water Plan Patient was only started on BiPAP 2 weeks ago. She does appear to be utilizing the therapy, but has not appreciated any symptom improvement in the quality of her sleep or daytime hypersomnolence. Her AHI on her compliance report is greater than 5 with significant air leaks noted. Therefore, the patient will be referred to the sleep lab to undergo PAP ed. She will follow-up with our nurse practitioner in 6 weeks to reassess her symptom response to therapy. Orders Orders: Plan Detail Follow Up 6 Weeks (CSM) HPI HPI Comments Details: The patient is a 77-year-old female who presents to the clinic today for a routine scheduled follow-up office visit. If you recall, the patient underwent a polysomnogram in March 2017. 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 Hypercapnia was noted during the study with an end-tidal CO2 level of 51 mmHg. The patient did have a very brief remote smoking history during college. 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 Pulmonary function testing completed in April 2017 was largely within normal limits. A 6 minute walk test was completed in May 2017 which revealed no evidence of exertional hypoxemia. A repeat polysomnogram was completed on December 29, 2017 and showed an overall AHI of 15.9 events per hour, the titration study was completed on January 27, 2018 and recommended BiPAP at 10/6 cm of water, also noted a PLMS of 29.1 average events per hour. The patient's nocturnal compliance report was personally reviewed at today's office visit. The patient is only been on BiPAP for 2 weeks now. However, her compliance report does indicate that she is utilizing the therapy. Nevertheless, she does have a residual AHI noted to be 5.4. Significant air leaks are noted. Overall, the patient does report that she has not appreciated a significant difference since being started on therapy. She still reports nonrestorative sleep along with daytime hypersomnolence. She is utilizing a nasal mask and receives her equipment through [facility]. The patient reports ongoing feeling of mental fogginess that has never changed. She states that she has had an extensive workup previously and no cause has ever been found. She does utilize clonazepam nightly for sleep. She denies fevers, chills or night sweats. Her weight has been stable. 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: No Accompanied by: Self Is patient in pain?: No Allergies No Known Allergies Allergy (Unverified 02/23/18 10:43) Medications cholecalciferol (vitamin D3) 1,000 unit capsule 1,000 unit PO ONCE 05/31/17 [History Confirmed 02/23/18] clonazepam 0.5 mg tablet 0.5 mg PO QHS 05/31/17 [History Confirmed 02/23/18] escitalopram 20 mg tablet 20 mg PO QDAY tab 02/23/18 [History Confirmed 02/23/18] [facility] Medical History Fatigue (Chronic) Hypercapnia (Chronic) Mild mental slowing (Chronic) Osteoarthritis (Chronic) Restless leg syndrome (Chronic) Supraventricular tachycardia (Chronic) Weakness (Chronic) Surgical History H/O prior ablation treatment (Resolved) S/P ORIF (open reduction internal fixation) fracture (Resolved) Social History Smoking Status: Former smoker quit date: 06/21/64 how long ago did patient quit smokin alcohol intake: never substance use type: does not use Review of Systems Const CONSTITUTIONAL: Positive fatigue; negative anorexia, body ache, chills, daytime sleepiness, fever(s), night sweats, oral thrush, stops breathing during sleep, weight loss, sleeping in chair, weight loss, weight gain, frequent colds, seasonal allergies, other, headache(s) or orthopnea EETM Ear Nose Throat Mouth: Positive hearing normal; negative hard of hearing, hoarseness, dry mouth in morning, change in vision, itchy eyes, eye pain, swallowing Difficulty, ear pain, nose bleed, headache(s), mouth pain, nasal congestion, nasal discharge, post nasal drip, sinus pain, sinus pressure, sore throat or other Cardio Cardiovascular: Negative chest pain, chest pain at rest, chest pain with activity, irregular heart rhythm, edema, shortness of breath when lying down, palpitations, murmur or other Resp Respiratory: Positive as per HPI; negative shortness of breath, pain with cough, wheezing, chest congestion, cough, chest tightness, pain on inspiration, inhalers, increase use of rescue inhalers, snoring, apnea or other Gastro Gastrointestional: Negative bloody stools, change in appetite, difficulty swallowing, reflux, hematemesis, melena stool, loose stool, constipation or other Genitourinary: Positive nocturia; negative blood in urine, pain with urination or other Musc Musculoskeletal: Negative body pain, back pain, neck pain or other Skin/Breast Skin/Breast: Negative dry skin, itching, rash, unusual bruising, breast lump or other Neuro Neurological: Negative restless legs, confusion, weakness or other Psych Psychocological: Negative abnormal sleep pattern, anxiety, thoughts of hurting self/others, hopelessness or other Lymph Lymphatic: Negative easy bleeding, easy bruising, swollen lymph nodes or other Exam Const Constitutional: Positive conversant, cooperative, in no acute respiratory distress, well developed, well nourished and good hygiene Head Head: Positive normocephalic and atraumatic; negative cyanosis of lips/distal nose Eyes Eye: Positive clear conjunctiva; negative nystagmus or scleral abnormality Ears Ear: Positive hearing normal and external ears normal; negative hard of hearing Nose Nose: Positive external nose normal; negative epistaxis Mouth Mouth: Positive oral mucosae normal and posterior oropharynx is adequate; negative no lesions or post nasal drip Mallampati Score: I: Mallampati Score Neck Neck: Positive normal visual inspection and trachea midline; negative lymphadenopathy Chest Wall Chest: Positive symmetric chest movement Normal AP diameter. Resp lung sounds: Positive clear to auscultation, good air exchange and normal expiratory time; negative wheezes, rhonchi or rales Cardio Cardiac: Positive regular rate, regular rhythm, S1 normal and S2 normal; negative rub, gallop or murmur GI GI: Positive normal bowel sounds Soft without distention Genitourinary: Positive deferred Musc Musculoskeletal: Positive steady gait Skin Pulmonary Skin Exam: Positive intact; negative lesion, ulcers, dermal atrophy or rash Pulses Pulse: Yes Pedal pulses present: Extremities Extremities: No clubbing, No cyanosis, No edema Neuro Neurologic: Yes conversant, Yes no focal neuro deficits, Yes cooperative Lymph Lymphatic: No lymphadenopathy Psych Appearance: Positive grossly normal Mental Status: Positive mental status grossly normal Mood: Positive congruent mood Affect: Positive normal affect Coding Level of Care Code Off vis,est,level 3 Diagnoses DHEERAJ (obstructive sleep apnea) G47.33 02/23/18 1123 <Electronically signed by Scar Boyle DO> Date Scar Boyle DO Cosigner Signature: Date (if applicable) CC: Catherine Diehl DO PULMONARY VISIT REPORT Observed: 02/04/2018 Status: F Source: [place] 11:51 AM [facility] REPOSITORY Pul[facility] of [address] [place] [address] OFFICE VISIT Date of Service: 02/03/18 MR#: [id number] Acct: [id number] Name: ZOE CABRALES Rep #: [id number] : 1940 Provider: Tania Ybarra Age/Sex: 77/F [place] [facility] Status: Signed Assessment AND Plan 1. DHEERAJ (obstructive sleep apnea) G47.33 Plan Reassured the patient that there are multiple different masks and that she will be fitted with the appropriate mask before set up. She conveys understanding and is optimistic and looking forward to acclimating to Pap therapy. Keep previously scheduled routine follow-up. Contact the office if there is any new or worsening symptoms or if she has any difficulty acclimating to Pap therapy. The patient will be set up with a BiPAP of 10/6 cm water as recommended in her sleep study. HPI Sleep study questions: Chief Complaint: Here to discuss recent sleep test results HPI Comments Details: This patient presents to the office today to discuss recent titration study results. She is ambulatory and currently in room air. She has not been seen in the ED urgent care for any respiratory illnesses since her last office visit. She reports that she recently completed the titration portion of a sleep study. Unfortunately, she reports that the mask that she was fitted with was extremely uncomfortable and caused her mouth pain. She reports that the mask she was fitted with fit inside her open mouth. She is concerned because it was so uncomfortable that she is afraid she will not be able to be compliant with therapy. Polysomnogram was completed on December 29 and showed an overall AHI of 15.9 events per hour, the titration study was completed on January 27, 2018 and recommended BiPAP at 10/6 cm of water, also noted a PLMS of 29.1 average events per hour. The patient reports persistent daytime hypersomnia, also feels cloudy in the morning when she wakes up. She is optimistic to start therapy. She currently experiences some shortness of breath on exertion only, denies any shortness of breath during conversation or at rest. Denies any chest pain or palpitations. Denies any cough, wheezing or chest tightness. See complete review of systems. Intake Vital Signs02/03/18 Height 5 ft 8 in 02/03/18 Weight: 138 lb Intake Visit Reasons: Sleep study questions DME Vendor: [facility] Accompanied by: Self Allergies No Known Allergies Allergy (Unverified 02/03/18 14:08) Medications cholecalciferol (vitamin D3) 1,000 unit capsule 1,000 unit PO ONCE 05/31/17 [History Confirmed 02/03/18] clonazepam 0.5 mg tablet 0.5 mg PO QHS 05/31/17 [History Confirmed 02/03/18] escitalopram 20 mg tablet 10 mg PO QDAY 12/16/17 [History Confirmed 02/03/18] [facility] Medical History Fatigue (Chronic) Hypercapnia (Chronic) Mild mental slowing (Chronic) Osteoarthritis (Chronic) Restless leg syndrome (Chronic) Supraventricular tachycardia (Chronic) Weakness (Chronic) Surgical History H/O prior ablation treatment (Resolved) S/P ORIF (open reduction internal fixation) fracture (Resolved) Social History Smoking Status: Former smoker quit date: 06/21/64 how long ago did patient quit smokin alcohol intake: never substance use type: does not use Review of Systems Const CONSTITUTIONAL: Positive daytime sleepiness and fatigue; negative anorexia, body ache, chills, fever(s), night sweats, oral thrush, stops breathing during sleep, weight loss, sleeping in chair, weight loss, weight gain, frequent colds, seasonal allergies, other, headache(s) or orthopnea EETM Ear Nose Throat Mouth: Positive hearing normal; negative hard of hearing, hoarseness, dry mouth in morning, change in vision, itchy eyes, eye pain, swallowing Difficulty, ear pain, nose bleed, headache(s), mouth pain, nasal congestion, nasal discharge, post nasal drip, sinus pain, sinus pressure, sore throat or other Cardio Cardiovascular: Negative chest pain, chest pain at rest, chest pain with activity, irregular heart rhythm, edema, shortness of breath when lying down, palpitations, murmur or other Resp Respiratory: Positive as per HPI; negative shortness of breath, pain with cough, wheezing, chest congestion, cough, chest tightness, pain on inspiration, inhalers, increase use of rescue inhalers, snoring, apnea or other Gastro Gastrointestional: Negative bloody stools, change in appetite, difficulty swallowing, reflux, hematemesis, melena stool, loose stool, constipation or other Genitourinary: Negative blood in urine, nocturia, pain with urination or other Musc Musculoskeletal: Negative body pain, back pain, neck pain or other Skin/Breast Skin/Breast: Negative dry skin, itching, rash, unusual bruising, breast lump or other Neuro Neurological: Negative restless legs, confusion, weakness or other Psych Psychocological: Negative abnormal sleep pattern, anxiety, thoughts of hurting self/others, hopelessness or other Lymph Lymphatic: Negative easy bleeding, easy bruising, swollen lymph nodes or other Exam Const Constitutional: Positive conversant, cooperative, in no acute respiratory distress, healthy appearing, well developed, well nourished and good hygiene Head Head: Positive normocephalic and atraumatic; negative cyanosis of lips/distal nose Eyes Eye: Positive clear conjunctiva; negative nystagmus or scleral abnormality Ears Ear: Positive hearing normal and external ears normal; negative hard of hearing Nose Nose: Positive external nose normal and no nasal discharge; negative epistaxis Mouth Mouth: Positive oral mucosae normal and no lesions; negative post nasal drip, oral thrush present or malodorous breath Mallampati Score: I: Mallampati Score Neck Neck: Positive normal visual inspection, full ROM and trachea midline; negative lymphadenopathy, JVD or tender Chest Wall Chest: Positive normal inspection of the chest and symmetric chest movement; negative increased A/P diameter Resp lung sounds: Positive clear to auscultation, good air exchange, normal expiratory time and normal respiratory effort; negative diminished, wheezes, rhonchi, rales, dullness to percussion or wheeze present on forced exhalation Cardio Cardiac: Positive regular rate, regular rhythm, S1 normal and S2 normal; negative murmur GI GI: Positive normal to inspection; negative distended Genitourinary: Positive deferred Musc Musculoskeletal: Positive steady gait and ROM normal; negative kyphosis or scoliosis Skin Pulmonary Skin Exam: Positive intact; negative rash Pulses Pulse: Yes radial pulses present Extremities Extremities: Yes capillary refill normal, No clubbing, No cyanosis, No edema Neuro Neurologic: Yes conversant, Yes no focal neuro deficits, Yes normal concentration, Yes understands questions, Yes cooperative, Yes normal cognition, Yes normal coordination Lymph Lymphatic: No lymphadenopathy, No tenderness Psych Appearance: Positive grossly normal, eye contact and well kempt Mental Status: Positive mental status grossly normal Mood: Positive congruent mood Affect: Positive normal affect Coding Level of Care Code Off vis,est,level 3 Diagnoses DHEERAJ (obstructive sleep apnea) G47.33 02/04/18 1151 <Electronically signed by Tania JUAREZ> Date Tania JUAREZ Cosigner Signature: Date (if applicable) CC: Catherine Diehl DO CORTISOL SERUM Collected: 01/07/2018 Status: F Source: [place] 10:10 AM [facility] REPOSITORY Order Comment: BASELINE OR POST MEDICATION STIMULATION?: AM Comments: AM TYPE CODE TESTS RESULT OUT OF RANGE REFERENCE UNITS LAB L509.6000 3.09-22.40 ug/dL Normal CORTISOL 21.10 Result Comment: Adult (AM) 4.30 - 22.40 ug/dL Adult (PM) 3.09 - 16.66 ug/dL Performed By: #### L509.6000 #### [facility] [address] [place], [address] CNCO Observed: 01/07/2018 Status: COMPLETED Source: [place] 12:00 AM [facility] REPOSITORY Letter Text Juan Jose Davis MD [facility] [address] [place] [address] Zoe Cabrales January 07, 2018 Zoe Cabrales [address] [facility] [address] Dear Zoe Cabrales: Due to a change in your provider's schedule, it has become necessary to reschedule the following appointment: Juan Jose Davis MD Date: 03/18/2018 Time: 10:40 AM We apologize for any inconvenience to you, however your provider would still like to see you. Please call us at [phone] to reschedule your appointment. Sincerely, Appointment Staff PULMONARY VISIT REPORT Observed: 12/16/2017 Status: F Source: [place] 4:40 PM [facility] REPOSITORY [facility] [address] [place] [address] OFFICE VISIT Date of Service: 12/16/17 MR#: [id number] Acct: [id number] Name: ZOE CABRALES Rep #: [id number] : 1940 Provider: Tania Ybarra Age/Sex: 77/F Location: [facility] Status: Signed Assessment AND Plan 1. Daytime somnolence R40.0 Status Acute Plan PSG for suspected sleep apnea given her excessive daytime tiredness and slowed cognition. CBC today to evaluate for anemia. Discussed the pathophysiology of obstructive sleep apnea, the risks of untreated sleep apnea and the benefits of treatment. Also notes that initially the goal will be that the patient wear the device 4 hours nightly, and ultimately to wear it any time spent sleeping if in fact she has sleep apnea and Pap therapy is indicated. She is agreeable to treatment and testing. Follow-up with Dr. Boyle in 3 months. CBC returned, anemia ruled out. Laboratory Tests Hgb 13.3 Hct 40.3 2. Nocturnal hypoxia G47.34 Plan Continue wearing oxygen QHS. 3. Restless leg syndrome G25.81 Plan Discussed the option of performing an unattended sleep study versus an attended sleep study, but given there is concern for possible restless leg syndrome the patient has been encouraged to obtain a formal polysomnogram is attended. We discussed that this would have more information that may indicate restless leg syndrome, and that if obstructive sleep apnea is not a problem and RLS is this could be the cause of interrupted sleep and therefore excessive daytime hypersomnia. Follow-up with Dr. Boyle in 3 months to discuss test results, to evaluate response to any therapies that may have been started in the meantime. Orders Orders: Plan Detail Other Orders Orders: Follow Up 3 Months (DMB) HPI 3 M FU: Chief Complaint: daytime fatigue HPI Comments Details: Yakov is a 77-year-old pleasant female who is here for a three- month follow-up of ongoing daytime fatigue and fogginess throughout the day. She describes not feeling well rested overnight and is tired throughout the day. She also notes that she feels like her cognition is somewhat slowed throughout the day. She is unsure if she snores as she lives alone, but does not wake herself up gasping for air. She does not take naps, denies dry mouth in the morning, and does not fall asleep while watching TV. She does however have 1-2 episodes of nocturia nightly. The patient has been wearing 2 L of oxygen during sleep via nasal cannula for the past 2 years after she underwent a polysomnogram at [facility] of which we do not have the results. She has been following with neurologist Dr. Davis who currently has her on clonazepam at bedtime to help with sleep. Patient is unsure of the results of the polysomnogram other than she became hypoxic and that is why she is on the oxygen. A PFT done in April 2017 was essentially normal showing possible small airway obstruction. She also had a 6 minute walk test done in May 2017 that did not show any significant desaturations with exertion. The patient follows with a court advocate, Dr. Kali Cruz, at the [facility] locally for a history of atrial fibrillation that required an ablation procedure in 2004. Patient is not on any anticoagulants and does not recall ever being on them. She notes that she has also seen her PCP, Dr. Catherine Diehl, for concerns about this daytime fatigue, and states that no one has given her any answers. Angle is unsure if she has ever had any testing done for anemia and the only prescription medications she is on include Lexapro and clonazepam. Intake Vital Signs12/16/17 Height 5 ft 8 in 12/16/17 Weight: 136 lb Intake Visit Reasons: 3 M FU Accompanied by: Self Allergies No Known Allergies Allergy (Unverified 12/16/17 11:12) Medications cholecalciferol (vitamin D3) 1,000 unit capsule 1,000 unit PO ONCE 05/31/17 [History Confirmed 12/16/17] clonazepam 0.5 mg tablet 0.5 mg PO QHS 05/31/17 [History Confirmed 12/16/17] escitalopram 20 mg tablet 10 mg PO QDAY 12/16/17 [History Confirmed 12/16/17] [facility] Medical History Fatigue (Chronic) Hypercapnia (Chronic) Mild mental slowing (Chronic) Osteoarthritis (Chronic) Restless leg syndrome (Chronic) Supraventricular tachycardia (Chronic) Weakness (Chronic) Surgical History H/O prior ablation treatment (Resolved) S/P ORIF (open reduction internal fixation) fracture (Resolved) Social History Smoking Status: Former smoker quit date: 06/21/64 how long ago did patient quit smokin alcohol intake: never substance use type: does not use Review of Systems Const CONSTITUTIONAL: Negative anorexia, body ache, chills, daytime sleepiness, fever(s), night sweats, oral thrush, stops breathing during sleep, weight loss, sleeping in chair, fatigue, weight loss, weight gain, frequent colds, seasonal allergies, other, headache(s) or orthopnea EETM Ear Nose Throat Mouth: Positive hearing normal; negative hard of hearing, hoarseness, dry mouth in morning, change in vision, itchy eyes, eye pain, swallowing Difficulty, ear pain, nose bleed, headache(s), mouth pain, nasal congestion, nasal discharge, post nasal drip, sinus pain, sinus pressure, sore throat or other Cardio Cardiovascular: Negative chest pain, chest pain at rest, chest pain with activity, irregular heart rhythm, edema, shortness of breath when lying down, palpitations, murmur or other Resp Respiratory: Positive as per HPI; negative shortness of breath, pain with cough, wheezing, chest congestion, cough, chest tightness, pain on inspiration, inhalers, increase use of rescue inhalers, snoring, apnea or other Gastro Gastrointestional: Negative bloody stools, change in appetite, difficulty swallowing, reflux, hematemesis, melena stool, loose stool, constipation or other Genitourinary: Negative blood in urine, nocturia, pain with urination or other Musc Musculoskeletal: Negative body pain, back pain, neck pain or other Skin/Breast Skin/Breast: Negative dry skin, itching, rash, unusual bruising, breast lump or other Neuro Neurological: Negative restless legs, confusion, weakness or other (fogginess, B/L feet with constant tingling) Psych Psychocological: Negative abnormal sleep pattern, anxiety, thoughts of hurting self/others, hopelessness or other Lymph Lymphatic: Negative easy bleeding, easy bruising, swollen lymph nodes or other Exam Const Constitutional: Positive conversant, cooperative, in no acute respiratory distress, healthy appearing, thin, well developed, well nourished and good hygiene Head Head: Positive normocephalic and atraumatic; negative cyanosis of lips/distal nose Eyes Eye: Positive clear conjunctiva and nystagmus; negative scleral abnormality Ears Ear: Positive hearing normal and external ears normal; negative hard of hearing Nose Nose: Positive external nose normal and no nasal discharge; negative epistaxis Mouth Mouth: Positive oral mucosae normal, no lesions and crowded posterior oropharynx; negative post nasal drip, malodorous breath or oral thrush present Mallampati Score: III: Mallampati Score Neck Neck: Positive normal visual inspection, full ROM and trachea midline; negative lymphadenopathy, JVD or tender Chest Wall Chest: Positive normal inspection of the chest and symmetric chest movement; negative increased A/P diameter Resp lung sounds: Positive clear to auscultation, good air exchange, normal expiratory time and normal respiratory effort; negative diminished, wheezes, rhonchi, rales, dullness to percussion or wheeze present on forced exhalation Cardio Cardiac: Positive regular rate, regular rhythm, S1 normal and S2 normal; negative murmur GI GI: Positive normal to inspection and normal bowel sounds; negative distended Genitourinary: Positive deferred Musc Musculoskeletal: Positive steady gait and ROM normal; negative kyphosis or scoliosis Skin Pulmonary Skin Exam: Positive intact; negative rash Pulses Pulse: Yes radial pulses present Extremities Extremities: Yes capillary refill normal, No edema Neuro Neurologic: Yes conversant, Yes no focal neuro deficits, Yes cooperative, Yes normal coordination, Yes normal concentration, Yes normal cognition, Yes understands questions (slow to respond to some questions) Lymph Lymphatic: No lymphadenopathy Psych Appearance: Positive grossly normal, eye contact and well kempt Mental Status: Positive mental status grossly normal Mood: Positive congruent mood Affect: Positive normal affect Coding Level of Care Code Off vis,est,level 4 Diagnoses Daytime somnolence R40.0 Nocturnal hypoxia G47.34 Restless leg syndrome G25.81 12/16/17 1640 <Electronically signed by Tania FRAZIERC> Date Tania FRAZIERC Cosigner Signature: Date (if applicable) CC: Catherine Diehl DO CBC-COMPLETE BLOOD CNT Collected: 12/16/2017 Status: F Source: [place] NO DIFF 12:21 PM [facility] REPOSITORY TYPE CODE TESTS RESULT OUT OF RANGE REFERENCE UNITS LAB L100.1000 4.4-11.0 K/mm3 Normal WBC 4.7 LAB L100.1200 4.2-5.4 M/mm3 Normal RBC 4.32 LAB L100.1300 12.0-15.0 g/dl Normal HGB 13.3 LAB L100.1400 37-47 % Normal HCT 40.3 LAB L100.1500 81-99 fL Normal MCV 93.3 LAB L100.1600 27.0-32.0 pg Normal MCH 30.8 LAB L100.1700 32-36 g/gl Normal MCHC 33.0 LAB L100.1810 11.6-14.6 % Normal RDW CV 12.0 LAB L100.1820 35.1-43.9 fl Normal RDW SD 41.1 LAB L100.1900 150-450 K/mm3 Normal PLT 206 LAB L100.2000 6.2-12.0 fl Normal MPV 10.7 Performed By: #### L100.0500 #### [facility] [place], [address] CNPN Observed: 11/25/2017 Status: COMPLETED Source: [place] 12:00 AM [facility] REPOSITORY Telephone (NIQ) ZOE CABRALES ([id number]) 1940 F Date Time Provider Department 11/25/17 JUAN JOSE DAVIS JR During your visit today, we recorded the following information about you: Ligia Acosta 11/25/2017 11:41 AM Signed PATIENT HAS 1 WEEK LEFT OF MEDICATION AT THIS TIME. HAS BEEN TAKING 1 TABLET PER DAY Patient has been identified by name and date of : Yes Pending Prescriptions Disp Refills CLONAZEPAM 0.5 MG TABLET 30 tablet 2 Sig: Take 1 to 2 tablets 1 hour before bedtime. DELORES Class: C-IV YANELI: No RX INSTRUCTIONS: Patient requesting a call when RX is approved and sent to the pharmacy. Please call patient at:home number verified in PSYCHIATRIC Ligia Davis MD 11/25/2017 2:57 PM Signed [facility] website checked and validated. All prescriptions have been APPROPRIATELY filled. No suspicious activity was identified.- 11/25/2017 by MD Carol Roche Ma 11/26/2017 2:23 PM Signed Prescription was called into the pharmacy and patient was notified. Carol Hart 11/30/2017 2:24 PM Signed Patient called and said pharmacy did not have this prescription. Verified pharmacy to be [facility] in [place] Carol Johnston Ma 11/30/2017 2:47 PM Signed Called pharmacy and they stated they had prescription they were getting it filled. Patient was notified. Carol Johnston Ma Allergies As of Date: 11/25/2017 (No Known Allergies) Date Reviewed: 10/26/2017 Reviewed by: Tegan Baptiste - Fully Assessed Reason for Visit: Refill Request [94] Visit Diagnosis:Restless legs syndrome [G25.81] Order(s):clonazePAM (KLONOPIN) 0.5 mg tabletTake 1 to 2 tablets 1 hour before bedtime.Disp: 60 tabletRfl: 0 Prescriptions as of 11/25/2017 Sig: CLONAZEPAM 0.5 MG TABLET Take 1 to 2 tablets 1 hour be* COLESTIPOL 1 GRAM TABLET Take 1 tablet by mouth twice * ESCITALOPRAM 10 MG TABLET Take 1 tablet by mouth once d* CHOLECALCIFEROL (VITAMIN D3) * Take 1 tablet by mouth once d* Problem List As Of Date: 11/25/2017 (None) Prescriptions ordered this encounter Disp Refills Start End CLONAZEPAM 0.5 MG TABLET 60 t* 0 11/25/2017 12/25/2017 Class: Call Rx Sig: Take 1 to 2 tablets 1 hour before bedtime. Medications Discontinued During This Encounter clonazePAM (KLONOPIN) 0.5 mg tablet 30 t* 2 08/16/2017 11/25/2017 Class: Print RX Sig: Take 1 to 2 tablets 1 hour before bedtime. Disc: Reason for discontinue is not on file. Encounter Status:Closed by JUAN JOSE DAVIS on 11/25/17 VITAMIN B12 Collected: 11/05/2017 Status: F Source: [place] 9:18 AM [facility] REPOSITORY TYPE CODE TESTS RESULT OUT OF RANGE REFERENCE UNITS LAB L503.0105 211-911 pg/mL Normal Vitamin B12 411 Performed By: #### L503.0105 #### [facility] [address], [address] COMPREHENSIVE METABOLIC Collected: 11/05/2017 Status: F Source: [place] 9[facility]18 AM [facility] TYPE CODE TESTS RESULT OUT OF RANGE REFERENCE UNITS LAB L501.0100 74-106 mg/dL Normal GLU 90 Result Comment: Please note revised GLUCOSE reference range effective 2017. LAB L501.1000 7-18 mg/dL Normal BUN 12 LAB L501.1100 0.55-1.02 mg/dL Normal CREAT,SERUM 0.81 Result Comment: The validity of the calculated GFR AND GFRAA in patients over 70 years has not been determined. Clinical correlation is essential. LAB L501.1110 >60 mL/min Normal EST GFR 73 Result Comment: Non- GFR Calc LAB L501.1115 >60 mL/min Normal EST GFR - AA 88 Result Comment: GFR Calc LAB L501.1300 10-20 RATIO Normal BUN/CRE 14.8 LAB L501.1500 6.4-8.2 g/dL T Normal PROT 7.2 LAB L501.1800 3.2-5.0 g/dL Normal ALB 3.8 LAB L501.1950 2.2-4.2 g/dL Normal GLOB 3.4 LAB L501.2000 0.9-2.4 RATIO Normal A/G 1.1 LAB L501.2200 8.5-10.1 mg/dL CA Normal 8.6 LAB L501.4100 15-37 U/L Normal AST 25 LAB L501.4305 45-117 U/L Normal ALK P 89 LAB L501.4405 13-56 U/L Normal ALT 23 LAB L501.4600 0.20-1.00 mg/dL T Normal BILI 0.40 LAB L501.5300 136-145 mmol/L NA Normal 137 LAB L501.5600 3.5-5.1 mmol/L K Normal 4.5 LAB L501.5900 98-107 mmol/L Low CL 96 LAB L501.6100 21.0-32.0 mmol/L Normal CO2 31.0 LAB L501.6200 5-15 Normal GAP 10 Performed By: #### L500.4050, L501.6710 #### [facility] [address] [place], [address] CRP Collected: 11/05/2017 Status: F Source: [place] 9:18 AM [facility] REPOSITORY TYPE CODE TESTS RESULT OUT OF RANGE REFERENCE UNITS LAB L501.6710 0.0-3.0 mg/L Normal < 2.90 C-REACTIVE PROT Result Comment: C-Reactive Protein (CRP) provides useful information for the diagnosis, therapy and monitoring of inflammatory processes and associated diseases. For the evaluation of Relative Risk for Cardiovascular Disease, a High Sensitivity CRP (HSCRP) should be ordered. Performed By: #### L500.4050, L501.6710 #### [facility] [address] [place], [address] MARK W/ REFLEX MULT Collected: 11/05/2017 Status: F Source: [facility] 9:18 AM [facility] REPOSITORY TYPE CODE TESTS RESULT OUT OF RANGE REFERENCE UNITS LAB L3100.5475 Negative Normal Negative MARK-DIRECT Result Comment: Performed at: [facility] [id number] Creative Strategist: Chato Lagunas PhD, Phone: [phone] Performed By: #### L3100.5450 #### [facility] (refer to report for specific site) refer to report for address and phone number TSH Collected: 10/26/2017 Status: F Source: [place] 11:57 AM [facility] REPOSITORY TYPE CODE TESTS RESULT OUT OF RANGE REFERENCE UNITS LAB TSH 0.400-5.500 uU/mL TSH 2.530 Performed By: #### TSH, VITD #### [place] [address] VITAMIN D 25 HYDROXY Collected: 10/26/2017 Status: F Source: [place] 11:57 AM [facility] REPOSITORY TYPE CODE TESTS RESULT OUT OF REFERENCE UNITS RANGE LAB VITD 31.0-80.0 ng/mL Low Vitamin D 25 30.0 Hydroxy Result Comment: Classification of 25 [place] Vitamin D status: Insufficiency/Moderate Deficiency: < or = 30 ng/mL Sufficiency/Optimal Levels: 31 to 80 ng/mL Toxicity: > 100 ng/mL Test performed by chemiluminescent immunoassay. 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 [facility]ICKS Fatigue ADHERENCE TO GUIDELINES VINCENT-I or ARB for HF with prior LVEF<40 (NQF 0081) - N/A ASA or Plavix for ASHD (NQF 0067) - N/A Beta lele for ASHD with prior NE or prior LVEF<40 (NQF 0070) - N/A Beta lele for HF with prior LVEF<40 (NQF 0083) - N/A VINCENT-I or ARB for ASHD with DM or prior LVEF<40 (NQF 0066) - N/A Statin therapy for ASHD or FHL or DM - N/A BMI documented and plan if >25 (NQF 0421) - lifestyle recommendation form Tobacco use screening and referral (NQF 0028) - lifestyle recommendation form Recommendation for whole food, plant based diet - lifestyle recommendation form CLINICAL IMPRESSION/PLAN: Zoe Cabrales has no evidence of significant structural or ischemic heart disease. The cause of her exercise intolerance and brain fog are unclear, but may be related to depression. I suggested she get a hold of Dr. Diehl and discuss these issues with him. I've also encouraged her to follow-up with neurology. I am still concerned about the adequacy of her sleep. We will avoid beta blockers for the time being, although they may be efficacious with regard to her atrial and ventricular arrhythmia. Alternatively, verapamil may have some benefit as at least some of her ventricular ectopy appears to be coming from an RVOT focus. She will go to the lab now and have vitamin D level and TSH. I will see her in 6 months. If there is increased palpitations or chest discomfort, she has been advised to contact me. Written and verbal health teaching given to patient, patient verbalizes understanding and agrees with treatment plan. DIAGNOSIS FOR VISIT: AVNRT HISTORY OF PRESENT ILLNESS Zoe Cabrales returns for follow-up of her SVT and exercise intolerance. She has had no recent palpitations. He has had no chest pain. She's been trying to exercise. She denies edema, syncope, TIAs, amaurosis. She's still having some episodes of brain fog. She has some overall fatigue. She is using nocturnal oxygen and is following with neurology. She recently established with Dr. Diehl. She cannot recall whether she discussed her tingling in her fingers and toes. ALLERGIES: ALLERGIES No Known Allergies CURRENT OUTPATIENT MEDICATIONS: colestipol (COLESTID) 1 gram tablet Take 1 tablet by mouth twice daily. escitalopram oxalate (LEXAPRO) 10 mg tablet Take 1 tablet by mouth once daily. clonazePAM (KLONOPIN) 0.5 mg tablet Take 1 to 2 tablets 1 hour before bedtime. cholecalciferol (VITAMIN D) 1,000 unit tab tablet Take 1 tablet by mouth once daily. PHYSICAL EXAMINATION: VITAL SIGNS: BP 118/72 Pulse 66 Ht 5' 7 (1.70m) Wt 135 lb (61.2kg) BMI 21.14 kg/(m2). Chest: Clear to percussion and auscultation. Trachea is midline. Air entry is equal. Cardiac: Regular rhythm. S1 and S2 are normal. PMI is nondisplaced. There is a soft systolic ejection murmur. Carotids are brisk without bruits. JVP is less than 10 cm. Abdomen: Soft and nontender. There are no pulsatile masses or bruits. No liver enlargement. Bowel sounds are active. Extremities: No edema. Pulses are intact and symmetrical. We again reviewed the results of her recent labs, echocardiogram and stress test. No pathology was noted. She has not followed up with repeat of her vitamin D level. 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 [facility] HICKS Fatigue ADHERENCE TO GUIDELINES VINCENT-I or ARB for HF with prior LVEF<40 (NQF 0081) - N/A ASA or Plavix for ASHD (NQF 0067) - N/A Beta lele for ASHD with prior NE or prior LVEF<40 (NQF 0070) - N/A Beta lele for HF with prior LVEF<40 (NQF 0083) - N/A VINCENT-I or ARB for ASHD with DM or prior LVEF<40 (NQF 0066) - N/A Statin therapy for ASHD or FHL or DM - N/A BMI documented and plan if >25 (NQF 0421) - lifestyle recommendation form Tobacco use screening and referral (NQF 0028) - lifestyle recommendation form Recommendation for whole food, plant based diet - lifestyle recommendation form CLINICAL IMPRESSION/PLAN: Zoe Cabrales has no evidence of significant structural or ischemic heart disease. The cause of her exercise intolerance and brain fog are unclear, but may be related to depression. I suggested she get a hold of Dr. Diehl and discuss these issues with him. I've also encouraged her to follow-up with neurology. I am still concerned about the adequacy of her sleep. We will avoid beta blockers for the time being, although they may be efficacious with regard to her atrial and ventricular arrhythmia. Alternatively, verapamil may have some benefit as at least some of her ventricular ectopy appears to be coming from an RVOT focus. She will go to the lab now and have vitamin D level and TSH. I will see her in 6 months. If there is increased palpitations or chest discomfort, she has been advised to contact me. Written and verbal health teaching given to patient, patient verbalizes understanding and agrees with treatment plan. DIAGNOSIS FOR VISIT: AVNRT HISTORY OF PRESENT ILLNESS Zoe Cabrales returns for follow-up of her SVT and exercise intolerance. She has had no recent palpitations. He has had no chest pain. She's been trying to exercise. She denies edema, syncope, TIAs, amaurosis. She's still having some episodes of brain fog. She has some overall fatigue. She is using nocturnal oxygen and is following with neurology. She recently established with Dr. Diehl. She cannot recall whether she discussed her tingling in her fingers and toes. ALLERGIES: ALLERGIES No Known Allergies CURRENT OUTPATIENT MEDICATIONS: colestipol (COLESTID) 1 gram tablet Take 1 tablet by mouth twice daily. escitalopram oxalate (LEXAPRO) 10 mg tablet Take 1 tablet by mouth once daily. clonazePAM (KLONOPIN) 0.5 mg tablet Take 1 to 2 tablets 1 hour before bedtime. cholecalciferol (VITAMIN D) 1,000 unit tab tablet Take 1 tablet by mouth once daily. PHYSICAL EXAMINATION: VITAL SIGNS: BP 118/72 Pulse 66 Ht 5' 7 (1.70m) Wt 135 lb (61.2kg) BMI 21.14 kg/(m2). Chest: Clear to percussion and auscultation. Trachea is midline. Air entry is equal. Cardiac: Regular rhythm. S1 and S2 are normal. PMI is nondisplaced. There is a soft systolic ejection murmur. Carotids are brisk without bruits. JVP is less than 10 cm. Abdomen: Soft and nontender. There are no pulsatile masses or bruits. No liver enlargement. Bowel sounds are active. Extremities: No edema. Pulses are intact and symmetrical. We again reviewed the results of her recent labs, echocardiogram and stress test. No pathology was noted. She has not followed up with repeat of her vitamin D level. Electronically Signed: Laureano Trevizo MD October 26, 2017 11:42 AM CC: Laureano Salmon 10/26/2017 11:43 AM Signed LIFESTYLE CHANGE A healthy lifestyle is the most important component of your overall treatment plan. Please give serious thought to the following areas and commit to making longterm changes. EAT A WHOLE FOOD, PLANT BASED DIET The nutrition your body gets is more important than the medicine you take. What matters most is the overall way you eat. We encourage you to minimize the use of animal products (which include dairy and all meats except fatty fish) and use whole, unprocessed plant foods to provide your protein, vitamins and other nutrients. We have a lot of information to share with you on this topic. This is not a diet. It is a way of life that you will keep with you. EXERCISE REGULARLY It is not important to spend hours in the gym, lifting weights and perspiring heavily. A total of 2-3 hours per week of aerobic (causing you to be moderately short of breath) exercise is sufficient to improve your health. Talk to us before you begin a new exercise program, if you have heart disease or experience shortness of breath or chest pain. REDUCE STRESS Chronic emotional and physical stress leads to disease. Ways of reducing stress include meditation, visualization, prayer, yoga and other forms of relaxation therapy. Consistency is the durham. Find a technique that works for you and do it every day. CULTIVATE RELATIONSHIPS Loneliness and isolation have a major negative impact on health. Seek out others who can love, care for and nurture you. Avoid hurtful relationships. MAINTAIN IDEAL BODY WEIGHT The best way to do this is to do all the things above. Our bodies naturally find the right weight if we keep moving and feed ourselves the right food. If your BMI is greater than 25, we strongly recommend a referral to a weight management program. Please speak to us or your family physician about available programs. AVOID NICOTINE IN ALL FORMS This includes all tobacco products, whether chewed, smoked, vaped, or rubbed on the skin. Smoking cessation programs, which can make use of tobacco substitutes, medications to suppress cravings and behavior management, are available. Please contact your family physician about programs in your area. 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 EAT A WHOLE FOOD, PLANT BASED DIET The nutrition your body gets is more important than the medicine you take. What matters most is the overall way you eat. We encourage you to minimize the use of animal products (which include dairy and all meats except fatty fish) and use whole, unprocessed plant foods to provide your protein, vitamins and other nutrients. We have a lot of information to share with you on this topic. This is not a diet. It is a way of life that you will keep with you. EXERCISE REGULARLY It is not important to spend hours in the gym, lifting weights and perspiring heavily. A total of 2-3 hours per week of aerobic (causing you to be moderately short of breath) exercise is sufficient to improve your health. Talk to us before you begin a new exercise program, if you have heart disease or experience shortness of breath or chest pain. REDUCE STRESS Chronic emotional and physical stress leads to disease. Ways of reducing stress include meditation, visualization, prayer, yoga and other forms of relaxation therapy. Consistency is the durham. Find a technique that works for you and do it every day. CULTIVATE RELATIONSHIPS Loneliness and isolation have a major negative impact on health. Seek out others who can love, care for and nurture you. Avoid hurtful relationships. MAINTAIN IDEAL BODY WEIGHT The best way to do this is to do all the things above. Our bodies naturally find the right weight if we keep moving and feed ourselves the right food. If your BMI is greater than 25, we strongly recommend a referral to a weight management program. Please speak to us or your family physician about available programs. AVOID NICOTINE IN ALL FORMS This includes all tobacco products, whether chewed, smoked, vaped, or rubbed on the skin. Smoking cessation programs, which can make use of tobacco substitutes, medications to suppress cravings and behavior management, are available. Please contact your family physician about programs in your area. Encounter Status:Closed by LAUREANO TREVIZO MD on 10/26/17 LAB MISCELLANEOUS Collected: 10/04/2017 Status: F Source: [facility] 1:36 PM [facility] REPOSITORY TYPE CODE TESTS RESULT OUT OF RANGE REFERENCE UNITS LAB [id number](LO INC) Normal Test Name FECAL FAT QUANT LAB [id number](LO INC) Normal Status See Ref Lab Report Performed By: #### [id number] #### JULIANO Send Outs Subsection [address] [place] [address] STL LEUKOCYTE Collected: 09/27/2017 Status: F Source: [facility] 3:21 PM [facility] REPOSITORY TYPE CODE TESTS RESULT OUT OF RANGE REFERENCE UNITS LAB [id number](L Negative OINC) Fecal Normal Leukocyte Negative LAB CD:[id number](LOINC) Fecal Normal Leukocyte Int Positive Ctl Performed By: #### [id number] #### JULIANO Misc Micro SubSection , GI PANEL Collected: 09/27/2017 Status: F Source: [facility] 3:21 PM [facility] REPOSITORY TYPE CODE TESTS RESULT OUT OF REFERENCE UNITS RANGE LAB [id number] (LOINC) Campylobacter Normal Not Detected LAB [id number] (LOINC) Clostridium difficile Normal toxin A/B Not Detected LAB 104053494 (LOINC) Plesiomonas Normal shigelloides Not Detected LAB 638215634 (LOINC) Salmonella Normal Not Detected LAB 460744929 (LOINC) Vibrio Normal Not Detected LAB 957871045 (LOINC) Vibrio cholerae Normal Not Detected LAB 087027232 (LOINC) Yersinia Normal enterocolitica Not Detected LAB 076056183 (LOINC) Enteroaggregatvie E Normal coli (EAEC) Not Detected LAB 624867959 (LOINC) Enteropathogenic E Normal Coli (EPEC) Not Detected LAB 302155987 (LOINC) Enterotoxigenci E coli Normal (ETEC)lt/st Not Detected LAB 405819032 (LOINC) Shiga-like Normal toxin-producing E coli Not Detected (STEC) LAB 102969571 (LOINC) Shigella/Enteroinvasiv Normal e E coli (EIEC) Not Detected LAB 680853463 (LOINC) Cryptosporidium Normal Not Detected LAB 131068091 (LOINC) Cyclospora Normal cayetanensis Not Detected LAB 823900519 (LOINC) Entamoeba histolytica Normal Not Detected LAB 097056104 (LOINC) Giardia lamblia Normal Not Detected LAB 360831613 (LOINC) Adenovirus F40/41 Normal Not Detected LAB 854551140 (LOINC) Astrovirus Normal Not Detected LAB 728712725 (LOINC) Norovirus GI/GII Normal Not Detected LAB 047891698 (LOINC) Rotavirus A Normal Not Detected Result Comment: The performance of the Film[facility] GI Panel has not been established in individuals who received Rotavirus A vaccine. Recent oral administration of a Rotavirus A vaccine may cause positiv e results for Rotavirus A if the virus is passed in the stool. Note: A negative FilmArray GI Panel does not exclude the possibility of gastrointestinal infection. LAB 420027310(LOINC) Normal Sapovirus Not Detected LAB 750102899(LOINC) E Normal coli 0157 Not Detected Performed By: #### [id number] #### JULIANO Mis Micro SubSection , FECFAT QL Collected: 09/27/2017 Status: F Source: [facility] 3:21 PM [facility] REPOSITORY TYPE CODE TESTS RESULT OUT OF RANGE REFERENCE UNITS LAB 273828310(L OINC) Normal Fecal Fats, Normal Neutral Result Comment: Normal (<60 Droplets/HPF) LAB 918011161(LOINC) Normal Fecal Normal Fats, Total Result Comment: Normal (<100 Droplets/HPF) Performed At: [facility] [id number] Janneth Reis PhD Ph:[phone] Performed By: #### [id number] #### JULIANO Send Outs Subsection [facility] [place] [address] LAB MISCELLANEOUS Collected: 09/27/2017 Status: F Source: [facility] 11:23 AM [facility] REPOSITORY TYPE CODE TESTS RESULT OUT OF RANGE REFERENCE UNITS LAB [id number](LO INC) Normal Test Name celiac iqbal LAB 59281380(LO INC) Normal Status See Ref Lab Report Performed By: #### [id number] #### JULIANO Send Outs Subsection [facility] [place] [address] CMP Collected: 09/27/2017 Status: F Source: [facility] 11:23 AM [facility] REPOSITORY TYPE CODE TESTS RESULT OUT OF RANGE REFERENCE UNITS LAB [id number](L 70-99 mg/dL OINC) Glucose Normal Lvl 84 LAB 61803622(L 8.4-10.2 mg/dL OINC) Calcium Normal Lvl 8.9 LAB 65983900(L 136-145 mEq/L OINC) Low Sodium Lvl 132 LAB 00209778(L 3.5-5.1 mEq/L OINC) Normal Potassium Lvl 4.1 LAB 64972330(L 98-107 mEq/L OINC) Low Chloride 92 LAB 58960042(L 24.0-30.0 mEq/L OINC) High CO2 30.7 LAB 03405739(L 7-18 mg/dL OINC) BUN Normal 14 LAB 5041439(LO 0.6-1.3 mg/dL INC) Normal Creatinine 0.7 LAB 90313100(L 42-121 Int._Unit/ OINC) L Alk Phos Normal 71 LAB 13013941(L 0.2-1.0 mg/dL OINC) Bili Normal Total 0.7 LAB 79849990(L 3.2-5.0 G/DL OINC) Albumin Normal Lvl 4.2 LAB 58128194(L 6.4-8.3 G/DL OINC) Total Normal Protein 6.8 LAB 59489244(L 10-40 Int._Unit/ OINC) L ALT Normal 20 LAB [id number](L 10-42 Int._Unit/ OINC) L AST Normal 28 LAB [id number](L 5.4-30.0 ratio OINC) Normal BUN/Creat Ratio 20.0 LAB 45270339(L 2.0-4.0 G/DL OINC) Globulin Normal 2.6 LAB 28589869(L 1.1-1.9 ratio OINC) A/G Normal Ratio 1.6 Performed By: #### [id number] #### JULIANO Snapette [facility] [place] [address] EGFR Collected: 09/27/2017 Status: F Source: [facility] 11:23 AM [facility] REPOSITORY Order Comment: Order added by Discern Expert. TYPE CODE TESTS RESULT OUT OF RANGE REFERENCE UNITS LAB 86813148(LO mL/min/1.73 INC) m2 Normal eGFR >60 LAB 64449117(LO mL/min/1.73 INC) m2 Normal eGFR AA >60 Performed By: #### [id number] #### JULIANO [employer] [address] [id number] SED RATE AUTOMATED Collected: 09/27/2017 Status: F Source: [facility] 11:23 AM [facility] REPOSITORY TYPE CODE TESTS RESULT OUT OF RANGE REFERENCE UNITS LAB [id number](L mm/hr OINC) Sed Normal Rate Automated 16 Result Comment: AGE-SPECIFIC REFERENCE RANGES FOR SEDIMENTATION RATE AUTOMATED REFERENCE RANGE - MM/HR AGE MEN WOMEN 0-2 0-2 - PUBERTY 3-13 3-13 PUBERTY - 50 YRS 0-15 0-20 > 50 YRS 0-20 0-30 Performed By: #### [id number] #### JULIANO Hematology Manual Subsection [facility] [place] [address] TSH Collected: 09/27/2017 Status: F Source: [facility] 11:23 AM [facility] REPOSITORY TYPE CODE TESTS RESULT OUT OF RANGE REFERENCE UNITS LAB [id number](LO 0.30-5.60 mIU/m INC) Normal TSH 2.60 Performed By: #### [id number] #### JULIANO [employer] [address] [place] [address] CBC W/ AUTO DIFF Collected: 09/27/2017 Status: F Source: [facility] 11:23 AM [facility] REPOSITORY TYPE CODE TESTS RESULT OUT OF RANGE REFERENCE UNITS LAB [id number](L 3.6-11.0 E3/mcL OINC) Normal WBC 4.3 LAB [id number](L 3.90-5.40 E6/mcL OINC) Normal RBC 4.33 LAB [id number](L 12.0-16.0 G/DL OINC) Normal Hgb 13.8 LAB 84273107(L 36.0-48.0 % OINC) Normal Hct 40.7 LAB 54203849(L 11.5-14.5 % OINC) Normal RDW 12.7 LAB [id number](L 27.0-31.0 pg OINC) High MCH 31.9 LAB [id number](L 33.0-37.0 G/DL OINC) Normal MCHC 34.0 LAB [id number](L 78.0-100.0 fL OINC) Normal MCV 93.9 LAB 82287716(L 7.4-11.0 fL OINC) Normal MPV 9.2 LAB [id number](L 130-400 E3/mcL OINC) Normal Platelet 192 Performed By: #### [id number] #### JULIANO [employer] [address] [id number] MORPH Collected: 09/27/2017 Status: F Source: [facility] 11:23 AM [facility] REPOSITORY Order Comment: Order Added by Discern Expert. TYPE CODE TESTS RESULT OUT OF RANGE REFERENCE UNITS LAB [id number](LO INC) Normal RBC Morph NORMAL Performed By: #### [id number] #### JULIANO RemHemo [facility] [place] [address] ZZPLT MORPH Collected: 09/27/2017 Status: F Source: [facility] 11:23 AM [facility] REPOSITORY TYPE CODE TESTS RESULT OUT OF RANGE REFERENCE UNITS LAB [id number](L OINC) Normal Platelet NORMAL Estimate LAB [id number](L OINC) Normal Platelet Morph NORMAL Performed By: #### [id number] #### JULIANO ParrHemo [facility] [place] [address] AUTO DIFF Collected: 09/27/2017 Status: F Source: [facility] 11:23 AM [facility] REPOSITORY Order Comment: Order Added by Discern Expert. TYPE CODE TESTS RESULT OUT OF RANGE REFERENCE UNITS LAB [id number](L 37.0-75.0 % OINC) Normal Neutro Auto 60.0 LAB 19041852(L 20.0-55.0 % OINC) Normal Lymph Auto 26.2 LAB 92199860(L 0.0-10.0 % OINC) High Randall Auto 11.2 LAB [id number](L 0.0-11.0 % OINC) Normal Eos Auto 1.6 LAB 51194342(L 0.0-2.0 % OINC) Normal Basophil Auto 1.0 LAB [id number](L 1.4-6.5 E3/mcL OINC) Normal Neutro 2.6 Absolute LAB 02519514(L 1.2-3.4 E3/mcL OINC) Low Lymph Absolute 1.1 LAB 16836417(L 0.0-0.7 E3/mcL OINC) Normal Randall Absolute 0.5 LAB [id number](L 0.0-0.7 E3/mcL OINC) Normal Eos Absolute 0.1 LAB 94523192(L 0.0-0.2 E3/mcL OINC) Normal Basophil 0.0 Absolute Performed By: #### [id number] #### JULIANO Angel [address] [place] [address] [facility] Observed: 08/31/2017 Status: COMPLETED Source: [place] 12:00 AM [facility] REPOSITORY Telephone (ERICMM) ZOE CABRALES ([id number]) 1940 F Date Time Provider Department 08/31/17 JUAN JOSE DAVIS JR During your visit today, we recorded the following information about you: Kathie Vieira Cma 08/31/2017 10:10 AM Signed Faxed a referral from Dr. Davis to Dr. Landon Otto. [phone]. Called patient and left message letting her know we have sent referral and that she can make the appointment. Kathie Ramirez RN 08/31/2017 1:51 PM Signed Patient states she was able to get in sooner with [facility] physician. Referral is in chart. No further action needed. Allergies As of Date: 08/31/2017 (No Known Allergies) Date Reviewed: 08/16/2017 Reviewed by: Juan Jose Davis Jr. 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 [place] [address] OFFICE VISIT Date of Service: 08/25/17 MR#: [id number] Acct: [id number] Name: ZOE CABRALES Rep #: [id number] : 1940 Provider: Scar Boyle D.O. Age/Sex: 77/F Location: [facility] Status: Signed Assessment AND Plan 1. Nocturnal hypoxia G47.34 Plan Continue 2 L/min supplemental oxygen on a nocturnal basis. 2. Fatigue R53.83 Plan Unclear etiology for the patient's daytime fatigue. She does not appear to have an innate underlying sleep disorder. Pulmonary function testing and a 6 minute walk test were also within normal limits. TSH was within normal limits. The patient states that she recently had blood work drawn through her court advocate's office. Given that her PCO2 level on prior ABG was 45, would be curious what her serum bicarbonate level is on chemistry. In addition, would also be concerned about the potential for anemia, given the patient's ongoing fatigue. Will attempt to obtain those medical records and if not completed, will order CBC and basic metabolic profile Plan Detail Follow Up 3 Months ([facility]) HPI HPI Comments Details: The patient is a 77-year-old female who presents to the clinic today for a routine scheduled follow-up office visit. If you recall, the patient underwent a polysomnogram in March 2017. 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 Hypercapnia was noted during the study with an end-tidal CO2 level of 51 mmHg. The patient did have a very brief remote smoking history during college. 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 Pulmonary function testing completed in April 2017 was largely within normal limits. A 6 minute walk test was completed in May 2017 which revealed no evidence of exertional hypoxemia. She also completed an overnight oximetry, which indicated a need for 2 L/min of supplemental oxygen on a nightly basis. Today, the patient reports that she was recently seen by both her neurologist, Dr. Davis and her court advocate Dr. Cruz. Her main concern today is for that of ongoing daytime fatigue. She does report that she sleeps on average 8 hours per night. He states that Dr. Cruz recently started her on vitamin D replacement. Prior TSH screening was within normal limits. She did have blood work obtained through the office of her court advocate recently. It is unclear whether or not she has been checked for underlying anemia or renal insufficiency. The patient remains compliant with the use of 2 L/min of supplemental oxygen on a nocturnal basis. She continues to utilize clonazepam at bedtime along with Lexapro. She reports no significant shortness of breath, cough, chest tightness or wheezing. Her weight has been stable. She denies chest pain, dizziness or lightheadedness. Intake Vital Signs08/25/17 Height 5 ft 8 in 08/25/17 Weight: 134 lb Intake Visit Reasons: 3 M FU [facility] Vendor: [facility] Accompanied by: Daughter Allergies No Known Allergies Allergy (Unverified 08/25/17 10:23) Medications escitalopram 10 mg tablet 10 mg PO QDAY 05/24/17 [History Confirmed 08/25/17] cholecalciferol (vitamin D3) 1,000 unit capsule 1,000 unit PO ONCE 05/31/17 [History Confirmed 08/25/17] clonazepam 0.5 mg tablet 0.5 mg PO QHS 05/31/17 [History Confirmed 08/25/17] [facility] Medical History Fatigue (Chronic) Hypercapnia (Chronic) Mild mental slowing (Chronic) Osteoarthritis (Chronic) Restless leg syndrome (Chronic) Supraventricular tachycardia (Chronic) Weakness (Chronic) Surgical History H/O prior ablation treatment (Resolved) S/P ORIF (open reduction internal fixation) fracture (Resolved) Social History Smoking Status: Former smoker quit date: 06/21/64 how long ago did patient quit smokin alcohol intake: never substance use type: does not use Review of Systems Const CONSTITUTIONAL: Positive daytime sleepiness and fatigue; negative anorexia, body ache, chills, fever(s), night sweats, oral thrush, stops breathing during sleep, weight loss, sleeping in chair, weight loss, weight gain, frequent colds, seasonal allergies, other, headache(s) or orthopnea EETM Ear Nose Throat Mouth: Positive hearing normal; negative hard of hearing, hoarseness, dry mouth in morning, change in vision, itchy eyes, eye pain, swallowing Difficulty, ear pain, nose bleed, headache(s), mouth pain, nasal congestion, nasal discharge, post nasal drip, sinus pain, sinus pressure, sore throat or other Cardio Cardiovascular: Negative chest pain, chest pain at rest, chest pain with activity, irregular heart rhythm, edema, shortness of breath when lying down, palpitations, murmur or other Resp Respiratory: Positive as per HPI; negative shortness of breath, pain with cough, wheezing, chest congestion, cough, chest tightness, pain on inspiration, inhalers, increase use of rescue inhalers, snoring, apnea or other Gastro Gastrointestional: Negative bloody stools, change in appetite, difficulty swallowing, reflux, hematemesis, melena stool, loose stool, constipation or other Genitourinary: Negative blood in urine, nocturia, pain with urination or other Musc Musculoskeletal: Negative body pain, back pain, neck pain or other Skin/Breast Skin/Breast: Negative dry skin, itching, rash, unusual bruising, breast lump or other Neuro Neurological: Negative restless legs, confusion, weakness or other Psych Psychocological: Negative abnormal sleep pattern, anxiety, thoughts of hurting self/others, hopelessness or other Lymph Lymphatic: Negative easy bleeding, easy bruising, swollen lymph nodes or other Exam Const Constitutional: Positive conversant, cooperative, in no acute respiratory distress, well developed, well nourished and good hygiene Head Head: Positive normocephalic and atraumatic; negative cyanosis of lips/distal nose Eyes Eye: Positive clear conjunctiva; negative nystagmus or scleral abnormality Ears Ear: Positive hearing normal and external ears normal; negative hard of hearing Nose Nose: Positive external nose normal; negative epistaxis Mouth Mouth: Positive oral mucosae normal, no lesions and posterior oropharynx is adequate; negative post nasal drip Mallampati Score: I: Mallampati Score Neck Neck: Positive normal visual inspection and trachea midline; negative lymphadenopathy Chest Wall Chest: Positive symmetric chest movement Normal AP diameter. Resp lung sounds: Positive clear to auscultation and good air exchange; negative wheezes, rhonchi or rales Cardio Cardiac: Positive regular rate, regular rhythm, S1 normal and S2 normal; negative murmur, rub or gallop GI GI: Positive normal bowel sounds Soft without distention Genitourinary: Positive deferred Musc Musculoskeletal: Positive steady gait and kyphosis Skin Pulmonary Skin Exam: Positive intact; negative rash, lesion or ulcers Pulses Pulse: Yes Pedal pulses present: Extremities Extremities: No clubbing, No cyanosis, No edema Stigmata of arthritis in the hands Neuro Neurologic: Yes conversant, Yes no focal neuro deficits, Yes cooperative, Yes normal cognition, Yes understands questions Lymph Lymphatic: No lymphadenopathy Psych Appearance: Positive grossly normal Mental Status: Positive mental status grossly normal Mood: Positive congruent mood Affect: Positive normal affect Coding Level of Care Code Off vis,est,level 3 Diagnoses Nocturnal hypoxia G47.34 Fatigue R53.83 08/25/17 1153 <Electronically signed by Scar Boyle DO> Date Scar Boyle DO Cosigner Signature: Date (if applicable) CC: Catherine Diehl DO PROGRESS Observed: 08/16/2017 Status: COMPLETED Source: [place] 8:42 AM [facility] REPOSITORY O ID: [id number] Author: Juan Jose Davis Jr. Service: (none) Author Type: Physician Type: Progress Notes Filed: 08/16/2017 11:50 PM Note Text: ESTABLISHED PATIENT VISIT HISTORY OF PRESENT ILLNESS: Zoe Cabrales is a 77 year old female, with a PMH significant for: 1. Restless legs syndrome - ICD9: 333.94, ICD10: G25.81 (primary diagnosis) -- last visit after failing gabapentin, started on Klonopin 0.5-1.0mg nightly. 2. Fatigue, unspecified type - ICD9: 780.79, ICD10: R53.83 - due to abnormal EKG on PSG and known cardiac history as well as abnormal CO2 levels, referred to cardiology and pulmonology. Patient reports since last visit, she saw pulmonary (Dr. Alcides oByle) at [place] and started on nocturnal O2. Patient also followed up with Dr. Trevizo who did not irregular heart rhythm but felt it was benign. She reports nothing has changed since starting the O2. Reports she still has brain fog and fatigue. Patient also saw Dr. Diehl (PCP) who recommended patient go on gluten free diet -- latter resulted in normalization of bowel movements, yet still again with brain fog and fatigue. She reports she is sleeping better on Klonopin 0.5mg QHS. Currently sleeping 8 hours nightly. Currently taking patient only a few minutes to fall asleep to start the night. No witnesses of her sleep. Describes mood as fine. States she feels extremely fatigued and just does not have the energy to get things done -- states she used to be an active person but no longer is. Patient states she would like to see a GI specialist at [facility] - Dr. Arenas for possible need for probiotics. Currently with BM x1 daily. Describes them as regular - previously with diarrhea before gluten free diet initiated. Denies indigestion. Drinks Gary milk. She reports that her thyroid has been checked more than once over past year and told both times everything ok. Currently waking to start the day around 7AM. No time of day that she feels brain fog more than others. States she is just so tired. States rarely takes naps -- if does so, there is no improvement in symptoms. Not falling asleep driving. [place] Sleepiness Scale: Sitting and readin Watching TV: 1 Sitting, inactive in a public place (e.g. a theatre or a meeting): 0 As a passenger in a car for an hour without a break: 0 Lying down to rest in the afternoon when circumstances permit: 0 Sitting and talking to someone: 0 Sitting quietly after a lunch without alcohol: 0 In a car, while stopped for a few minutes in the traffic: 0 Total: 1 IM JUST SO EXHAUSTED Denies diplopia, dysarthria, vertigo, dysphagia, focal weakness, numbness. Does not sleep supine. No history of autoimmune or inflammatory disorders. REVIEW OF SYSTEMS GENERAL:No weight loss, malaise or fevers. HEENT:Negative for frequent or significant headaches, No changes in hearing or vision, no nose bleeds or other nasal problems NECK:Negative for lumps, goiter, pain and significant neck swelling RESPIRATORY: Negative for cough, wheezing or shortness of breath. CARDIOVASCULAR: Negative for chest pain, leg swelling or palpitations. GASTROINTESTINAL: Negative for abdominal discomfort, blood in stools or black stools or change in bowel habits GENITOURINARY: No history of dysuria, frequency or incontinence MUSCULOSKELETAL: Negative for joint pain or swelling, back pain or muscle pain. NEUROLOGIC:Negative for focal numbness or weakness, headaches and dizziness or syncope, vision changes, speech/languag changes - EXCEPT that as per HPI above. SKIN:Negative for lesions, rash, and itching. HEMATOLOGIC/LYMPHATIC/IMMUNOLOGIC:Negative for prolonged bleeding, bruising easily or swollen nodes. ENDOCRINE: Negative for cold or heat intolerance, polyuria, polydipsia and goiter. The remainder of the ROS was reviewed and is negative. LAB/IMAGING: Those performed since patient's last visit have been reviewed. WBC (k/uL) Date Value 05/24/2017 4.32 RBC (m/uL) Date Value 05/24/2017 4.48 Hemoglobin (g/dL) Date Value 05/24/2017 14.1 Hematocrit (%) Date Value 05/24/2017 42.6 MCV (fL) Date Value 05/24/2017 95.1 MCH (pG) Date Value 05/24/2017 31.5 MCHC (g/dL) Date Value 05/24/2017 33.1 RDW-CV (%) Date Value 05/24/2017 11.7 Platelet Count (k/uL) Date Value 05/24/2017 181 MPV (fL) Date Value 05/24/2017 11.7 Glucose (mg/dL) Date Value 05/24/2017 83 BUN (mg/dL) Date Value 05/24/2017 16 Creatinine (mg/dL) Date Value 05/24/2017 0.87 Sodium (mmol/L) Date Value 05/24/2017 137 Potassium (mmol/L) Date Value 05/24/2017 4.2 Chloride (mmol/L) Date Value 05/24/2017 97 CO2 (mmol/L) Date Value 05/24/2017 29 Calcium (mg/dL) Date Value 05/24/2017 9.2 MEDICATIONS: cholecalciferol (VITAMIN D) 1,000 unit tab tablet Take 1 tablet by mouth once daily. clonazePAM (KLONOPIN) 0.5 mg tablet Take 1 to 2 tablets 1 hour before bedtime. gabapentin (NEURONTIN) 300 mg capsule Take 300 mg by mouth daily at bedtime. escitalopram oxalate (LEXAPRO) 10 mg tablet Take 10 mg by mouth once daily. HISTORIES PAST MEDICAL HISTORY Diagnosis Date - Fall - Fx intertrochanteric hip (HCC) s/p ORIF repair - Generalized weakness - Supraventricular tachycardia (HCC) s/p ablation therapy 2004, no recurrences FAMILY HISTORY Problem Relation Age of Onset - Cancer Mother - Cancer Father SOCIAL HISTORY Social History Substance Use Topics - Smoking status: Former Smoker - Smokeless tobacco: Never Used - Alcohol use No PHYSICAL EXAMINATION Blood pressure 128/72, pulse 78, weight 59 kg (130 lb), SpO2 98 %. GENERAL EXAM: General appearance: NAD, pleasant. HEENT: NC/AT, nasal congestion absent, no oral lesions, membranes moist. NECK: No masses, supple. Lungs: CTA bilaterally. CV: RRR nl S1, S2. No carotid bruits. Extr: No cyanosis, clubbing or edema. Extremity pulses palpable and normal. Skin: Cool to touch. ? NEUROLOGICAL EXAM: General: Awake, alert, oriented x3 (person,place,time), speech fluent, no dysarthria; comprehension, naming, repetition intact. 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 Fund of knowledge grossly normal by MOCA. CN: PERRL, EOMI and without nystagmus, VFF to confrontation, facial sensation and strength are normal and symmetric, hearing is intact to finger rub bilaterally, palate and tongue movements are intact and symmetric. SCM and trapezius strength normal. Motor: Normal tone, bulk and strength (5/5) bilaterally (throughout extremities x4). Reflexes: 1/4 and symmetric, plantar stimulation is flexor. Coordination: FNF, TESFAYE, HTS intact. No tremors. Sensation: LT intact throughout. No evidence of neglect. Gait: Narrow based and stable with normal stride and arm swing. Romberg normal. Assessment and Plan: ASSESSMENT/PLAN: 1. Restless legs syndrome - ICD9: 333.94, ICD10: G25.81 (primary diagnosis) Currently symptoms well controlled on Klonopin 0.5mg QHS. No side effects. No issues falling asleep or staying sleep. Medication has not worsened symptoms of daytime fatigue. Unfortunately it has not improved daytime fatigue. No changes to meds at this time. Rx provide. OARRS website checked and validated. All prescriptions have been APPROPRIATELY filled. No suspicious activity was identified.- 08/16/2017 by Juan Jose Davis MD 2. Malaise and fatigue - ICD9: 780.79, ICD10: R53.81, R53.83 Etiology uncertain. Patient has head extensive testing per cardiology notes, and has been started on O2 by pulmonary. PCP has also sent off lab work with no abnormal findings. Again, reviewed sleep study with no obvious etiology now that RLS is subjectively controlled. She is also an off-supine sleeper. Question if component of depression, although patient denies. 3. Diarrhea, unspecified type - ICD9: 787.91, ICD10: R19.7 Patient reporting frequent diarrhea. She indicates there have been studies in which probiotics have improved diarrhea and fatigue - I am personally not familiar with these. She is requesting GI consult for further evaluation. Consult to GI placed. Juan Jose Davis MD I spent 25 minutes in the visit, with more than 50% of the total [id number] time of the visit in counseling / coordination of care. PROGRESS Observed: 06/23/2017 Status: COMPLETED Source: [place] 2:49 PM [facility] REPOSITORY HNO ID: [id number] Author: Laureano Trevizo Service: (none) Author Type: Physician Type: Progress Notes Filed: 06/23/2017 4:51 PM Note Text: PERTINENT CARDIAC HISTORY AVNRT - ablation slow pathway 2005 CHELSEA HICKS Fatigue ADHERENCE TO GUIDELINES VINCENT-I or ARB for HF with prior LVEF<40 (NQF 0081) - N/A ASA or Plavix for ASHD (NQF 0067) - N/A Beta lele for ASHD with prior NE or prior LVEF<40 (NQF 0070) - N/A Beta lele for HF with prior LVEF<40 (NQF 0083) - N/A VINCENT-I or ARB for ASHD with DM or prior LVEF<40 (NQF 0066) - N/A Statin therapy for ASHD or FHL or DM - N/A BMI documented and plan if >25 (NQF 0421) - lifestyle recommendation form Tobacco use screening and referral (NQF 0028) - lifestyle recommendation form Recommendation for whole food, plant based diet - lifestyle recommendation form CLINICAL IMPRESSION/PLAN: Zoe Cabrales has 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 This is asymptomatic. It may be related in part to her nocturnal hypoxemia. There is no evidence of ischemia or structural heart disease. I recommended that she continue her current medication. She will be establishing with Dr. Diehl in the near future. She has been having some symptoms of peripheral neuropathy which I've asked her to address with him. There is no evidence of peripheral vascular disease. I suggested that her fatigue and overall mood should improve with the treatment of her hypoxemia. I've asked her to call if she has recurrent palpitations. 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 I will see her in 3 months or as needed. Written and verbal health teaching given to patient, patient verbalizes understanding and agrees with treatment plan. This note was generated using [employer] voice recognition system, and there may be some incorrect words, spellings, and punctuation that were not noted in checking the note before saving. DIAGNOSIS FOR VISIT: CHELSEA HISTORY OF PRESENT ILLNESS Zoe Cabrales returns for follow-up of her ventricular ectopy. She's undergone multiple tests including echocardiogram and stress test. She denies chest discomfort. She is unaware of her heart rhythm. She's had no syncope or near-syncope. She denies orthopnea, edema, TIAs, amaurosis and claudication. She reports that she will be wearing oxygen at night. Her restless leg syndrome has improved. ALLERGIES: ALLERGIES No Known Allergies CURRENT OUTPATIENT MEDICATIONS: cholecalciferol (VITAMIN D) 1,000 unit tab tablet Take 1 tablet by mouth once daily. clonazePAM (KLONOPIN) 0.5 mg tablet Take 1 to 2 tablets 1 hour before bedtime. escitalopram oxalate (LEXAPRO) 10 mg tablet Take 10 mg by mouth once daily. gabapentin (NEURONTIN) 300 mg capsule Take 300 mg by mouth daily at bedtime. PHYSICAL EXAMINATION: VITAL SIGNS: BP 130/70 Pulse 58 Ht 5' 7 (1.70m) Wt 138 lb 4.8 oz (62.7kg) BMI 21.66 kg/(m2). Chest: Clear to percussion and auscultation. Trachea is midline. Air entry is equal. Cardiac: Regular rhythm. S1 and S2 are normal. PMI is nondisplaced. There is a soft systolic ejection murmur without radiation. Carotids are brisk without bruits. JVP is less than 10 cm. Abdomen: Soft and nontender. There are no pulsatile masses or bruits. No liver enlargement. Bowel sounds are active. Extremities: No edema. Pulses are intact and symmetrical. Recent labs were reviewed. Magnesium level was normal. Vitamin D was slightly low and she has been started on supplement. Echocardiogram was reviewed. This shows normal left ventricular function. There is no evidence of previous septal infarct. Stress test showed normal ejection fraction. No previous infarct was noted. There is no evidence of ischemia. Event monitor was again reviewed with her. Some of the ventricular runs were likely ventricular bigeminy. Electronically Signed: Laureano Trevizo MD June 23, 2017 2:49 PM CC: No Pcp CNOV Observed: 06/23/2017 Status: COMPLETED Source: [place] 2:30 PM [facility] REPOSITORY Office Visit (AGCARDW[facility]) ZOE CABRALES ([id number]) 1940 F Date Time Provider Department 06/23/17 2:30 PM LAUREANO TREVIZOARDINDIGO During your visit today, we recorded the following information about you: Pulse Blood pressure Weight Height 58/minute 130/70 62.7 kg 1.702 m Laureano Trevizo MD 06/23/2017 4:51 PM Signed PERTINENT CARDIAC HISTORY AVNRT - ablation slow pathway 2004 CHELSEA HICKS Fatigue ADHERENCE TO GUIDELINES VINCENT-I or ARB for HF with prior LVEFANDlt;40 (NQF 0081) - N/A ASA or Plavix for ASHD (NQF 0067) - N/A Beta lele for ASHD with prior NE or prior LVEFANDlt;40 (NQF 0070) - N/A Beta lele for HF with prior LVEFANDlt;40 (NQF 0083) - N/A VINCENT-I or ARB for ASHD with DM or prior LVEFANDlt;40 (NQF 0066) - N/A Statin therapy for ASHD or FHL or DM - N/A BMI documented and plan if ANDgt;25 (NQF 0421) - lifestyle recommendation form Tobacco use screening and referral (NQF 0028) - lifestyle recommendation form Recommendation for whole food, plant based diet - lifestyle recommendation form CLINICAL IMPRESSION/PLAN: Zoe Gutierrezsamaria has 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 This is asymptomatic. It may be related in part to her nocturnal hypoxemia. There is no evidence of ischemia or structural heart disease. I recommended that she continue her current medication. She will be establishing with Dr. Diehl in the near future. She has been having some symptoms of peripheral neuropathy which I've asked her to address with him. There is no evidence of peripheral vascular disease. I suggested that her fatigue and overall mood should improve with the treatment of her hypoxemia. I've asked her to call if she has recurrent palpitations. 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 I will see her in 3 months or as needed. Written and verbal health teaching given to patient, patient verbalizes understanding and agrees with treatment plan. This note was generated using [employer] voice recognition system, and there may be some incorrect words, spellings, and punctuation that were not noted in checking the note before saving. DIAGNOSIS FOR VISIT: CHELSEA HISTORY OF PRESENT ILLNESS Zoe Cabrales returns for follow-up of her ventricular ectopy. She's undergone multiple tests including echocardiogram and stress test. She denies chest discomfort. She is unaware of her heart rhythm. She's had no syncope or near-syncope. She denies orthopnea, edema, TIAs, amaurosis and claudication. She reports that she will be wearing oxygen at night. Her restless leg syndrome has improved. ALLERGIES: ALLERGIES No Known Allergies CURRENT OUTPATIENT MEDICATIONS: cholecalciferol (VITAMIN D) 1,000 unit tab tablet Take 1 tablet by mouth once daily. clonazePAM (KLONOPIN) 0.5 mg tablet Take 1 to 2 tablets 1 hour before bedtime. escitalopram oxalate (LEXAPRO) 10 mg tablet Take 10 mg by mouth once daily. gabapentin (NEURONTIN) 300 mg capsule Take 300 mg by mouth daily at bedtime. PHYSICAL EXAMINATION: VITAL SIGNS: BP 130/70 Pulse 58 Ht 5' 7ANDquot; (1.70m) Wt 138 lb 4.8 oz (62.7kg) BMI 21.66 kg/(m2). Chest: Clear to percussion and auscultation. Trachea is midline. Air entry is equal. Cardiac: Regular rhythm. S1 and S2 are normal. PMI is nondisplaced. There is a soft systolic ejection murmur without radiation. Carotids are brisk without bruits. JVP is less than 10 cm. Abdomen: Soft and nontender. There are no pulsatile masses or bruits. No liver enlargement. Bowel sounds are active. Extremities: No edema. Pulses are intact and symmetrical. Recent labs were reviewed. Magnesium level was normal. Vitamin D was slightly low and she has been started on supplement. Echocardiogram was reviewed. This shows normal left ventricular function. There is no evidence of previous septal infarct. Stress test showed normal ejection fraction. No previous infarct was noted. There is no evidence of ischemia. Event monitor was again reviewed with her. Some of the ANDquot;ventricular runsANDquot; were likely ventricular bigeminy. Electronically Signed: Laureano Trevizo MD June 23, 2017 2:49 PM CC: No Pcp Laureano Trevizo MD 06/23/2017 2:49 PM Signed LIFESTYLE CHANGE A healthy lifestyle is the most important component of your overall treatment plan. 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 EAT A WHOLE FOOD, PLANT BASED DIET The nutrition your body gets is more important than the medicine you take. What matters most is the overall way you eat. We encourage you to minimize the use of animal products (which include dairy and all meats except fatty fish) and use whole, unprocessed plant foods to provide your protein, vitamins and other nutrients. We have a lot of information to share with you on this topic. We also hold Shared Medical Appointments, where you can come visit with Dr. Trevizo in the company of other patients and spend over an hour talking about the challenges of changing the way you eat. This is not a ANDquot;dietANDquot;. It is a way of life that you will keep with you. EXERCISE REGULARLY It is not important to spend hours in the gym, lifting weights and perspiring heavily. A total of 2-3 hours per week of aerobic (causing you to be moderately short of breath) exercise is sufficient to improve your health. Talk to us before you begin a new exercise program, if you have heart disease or experience shortness of breath or chest pain. REDUCE STRESS Chronic emotional and physical stress leads to disease. Ways of reducing stress include meditation, visualization, prayer, yoga and other forms of relaxation therapy. Consistency is the durham. Find a technique that works for you and do it every day. CULTIVATE RELATIONSHIPS Loneliness and isolation have a major negative impact on health. Seek out others who can love, care for and nurture you. Avoid hurtful relationships. MAINTAIN IDEAL BODY WEIGHT The best way to do this is to do all the things above. Our bodies naturally find the right weight if we keep moving and feed ourselves the right food. If your BMI is greater than 25, we strongly recommend a referral to a weight management program. Please speak to us or your family physician about available programs. AVOID NICOTINE IN ALL FORMS This includes all tobacco products, whether chewed, smoked, vaped, or rubbed on the skin. Smoking cessation programs, which can make use of tobacco substitutes, medications to suppress cravings and behavior management, are available. Please contact your family physician about programs in your area. Marco Stevenson, RN, RN 06/24/2017 8:32 AM Signed Copy of OV note mailed to Dr. Diehl's office. Referring Provider: LAUREANO TREVIZO [[id number]] Allergies As of Date: 06/23/2017 (No Known Allergies) Date Reviewed: 06/23/2017 Reviewed by: Tegan Baptiste - Fully Assessed Reason for Visit: Follow Up [171] Primary Visit Diagnosis:Ventricular arrhythmia [I49.9] Prescriptions as of 06/23/2017 Sig: CHOLECALCIFEROL (VITAMIN D3) * Take 1 tablet by mouth once d* CLONAZEPAM 0.5 MG TABLET Take 1 to 2 tablets 1 hour be* ESCITALOPRAM 10 MG TABLET Take 10 mg by mouth once benji* GABAPENTIN 300 MG CAPSULE Take 300 mg by mouth daily at* Problem List As Of Date: 06/23/2017 (None) Other instructions from your clinician: LIFESTYLE CHANGE A healthy lifestyle is the most important component of your overall treatment plan. Please give serious thought to the following areas and commit to making longterm changes. EAT A WHOLE FOOD, PLANT BASED DIET The nutrition your body gets is more important than the medicine you take. What matters most is the overall way you eat. We encourage you to minimize the use of animal products (which include dairy and all meats except fatty fish) and use whole, unprocessed plant foods to provide your protein, vitamins and other nutrients. We have a lot of information to share with you on this topic. We also hold Shared Medical Appointments, where you can come visit with Dr. Trevizo in the company of other patients and spend over an hour talking about the challenges of changing the way you eat. This is not a diet. It is a way of life that you will keep with you. EXERCISE REGULARLY It is not important to spend hours in the gym, lifting weights and perspiring heavily. A total of 2-3 hours per week of aerobic (causing you to be moderately short of breath) exercise is sufficient to improve your health. Talk to us before you begin a new exercise program, if you have heart disease or experience shortness of breath or chest pain. REDUCE STRESS Chronic emotional and physical stress leads to disease. Ways of reducing stress include meditation, visualization, prayer, yoga and other forms of relaxation therapy. Consistency is the durham. Find a technique that works for you and do it every day. CULTIVATE RELATIONSHIPS Loneliness and isolation have a major negative impact on health. Seek out others who can love, care for and nurture you. Avoid hurtful relationships. MAINTAIN IDEAL BODY WEIGHT The best way to do this is to do all the things above. Our bodies naturally find the right weight if we keep moving and feed ourselves the right food. If your BMI is greater than 25, we strongly recommend a referral to a weight management program. Please speak to us or your family physician about available programs. AVOID NICOTINE IN ALL FORMS This includes all tobacco products, whether chewed, smoked, vaped, or rubbed on the skin. Smoking cessation programs, which can make use of tobacco substitutes, medications to suppress cravings and behavior management, are available. Please contact your family physician about programs in your area. Visit Notes: >> Marco (Taj) TAJ Stevenson Flory Jun 24, 2017 8:32 AM Status: Signed Copy of OV note mailed to Dr. Diehl's office. Follow-up and Disposition History Recorded Encounter Status:Closed by LAUREANO TREVIZO MD on 06/23/17 STRESS REPORT Observed: 06/16/2017 Status: F Source: [place] 11:48 AM [facility] REPOSITORY [facility] [place] [address] MR#: [id number] Acct: [id number] Name: ZOE CABRALES Rep #: [id number] : 1940 76 From: Benji Leblanc MD Primary Care: Care Physician, No Primary Status: REG CLI Ordering Dr: Sex: F C Stress Test Report Pharmacologic myocardial perfusion stress test. 76-year-old lady with a history of dyspnea on exertion. Stress protocol: Resting EKG demonstrates normal sinus rhythm with rate of 64 bpm. Resting blood pressure is 142/78. 0.4 mg of adenosine was infused per usual protocol followed by rapid intravenous saline flush injection continuous EKG monitoring was performed. The patient maintained sinus rhythm throughout the recording with occasional premature ventricular complexes were noted. The maximum heart rate attained was 93 bpm which was 64% of maximum predicted heart rate the maximum workload attained was 1 metabolic equivalents. At rest there were no ST or T-wave changes noted suggest abnormal flow reserve at peak infusion no ST or T-wave changes were noted suggest abnormal flow reserve. The resting blood pressure is 142/78 with a final blood pressure 130/70. Myocardial perfusion protocol. 9.4 mCi of technetium 99m sestamibi was injected at rest. 0.4 mg of adenosine was infused per usual protocol peak infusion 31.5 mCi of technetium 99m sestamibi was injected. Stress images were obtained. Stress and rest images were reconstructed and compared in the short axis vertical long and horizontal long axis. Gated images were also obtained. Perfusion SPECT analysis. Review of the stress images demonstrate normal uptake of tracer noted in all areas myocardium the resting images similarly demonstrate normal uptake of tracer noted in all areas of the myocardium. No areas of reversibility are noted suggest ischemia no previous infarct is noted. A small perfusion defect is noted in the apex but is rather insignificant. Gated SPECT analysis: The gated ejection fraction is 55%. Conclusion: Normal pharmacologic myocardial perfusion stress test. Normal ejection fraction. 06/16/17 1148 <Electronically signed by Benji Leblanc MD> Date Benji Leblanc MD CC: No Primary Care Physician Date Dictated: 06/16/17 114 Date Transcribed: 06/16/171144 Book Cleaner: CO Signed ALLERGIES ALLERGIES DATE TYPE / CODE NAME / CODE REACTION SEVERITY SOURCE 04/13/2018 Drug No Known Unknown [place] [facility] Allergy/416 Allergies/N31860 [facility] 850290(SNOM 0388(RXNORM) Repository ED CT) Drug NO KNOWN [facility] Class/22470 ALLERGIES Other [place] 1003(SNOMED Repository CT) Drug/390562 No Known [facility]oroastrianism 003(SNOMED [facility]ies [facility] NG/33089457 NO KNOWN [facility] 6(SNOMED ALLERGIES [facility] CT) Repository ENCOUNTERS ENCOUNTERS ADMIT/DISCHARGE ACCOUNT NUMBER ADMITTING ENCOUNTER LOCATION SOURCE CLASS 05/20/2018 [id number] Ambulatory [facility] ding:LAB Repository 04/29/2018/05/02/20 [id number] Ambulatory [address] Main [place] Repository 04/29/2018 [id number] Ambulatory [facility] MEDICAL Repository CENTERBuildi ng:CAGWS 04/13/2018/04/13/20 [id number] Ambulatory BMSBuilding: [place] 18 BMS.[facility] Repository 04/12/2018 [id number] Ambulatory [facility] ding:BFHLAB Repository 03/30/2018 [id number] Ambulatory [facility] ding:PSN Repository 03/21/2018/03/21/20 [id number] Ambulatory [address] Other [place] Repository 03/21/2018/03/21/20 [id number] Ambulatory [address] MEDICAL Repository CENTERBuildi ng:NEUSAGHB 03/04/2018 [id number] Ambulatory [facility] ding:SL Repository 02/23/2018/02/24/20 [id number] Ambulatory BMSBuilding: [place] 18 BMS.[facility] Repository 02/03/2018/02/04/20 [id number] Ambulatory BMSBuilding: [place] 18 BMS.[facility] Repository 01/27/2018 [id number] Ambulatory [facility] ding:SL Repository 01/07/2018 [id number] Ambulatory [facility] ding:BFHLAB Repository 12/29/2017 [id number] Ambulatory [facility] ding:SL Repository 12/16/2017 [id number] Ambulatory [facility] ding:LAB Repository 12/16/2017/12/17/19 [id number] Ambulatory BMSBuilding: [place] 18 BMS.[facility] Repository 11/05/2017 [id number] Ambulatory [facility] ding:BFHLAB Repository 10/26/2017/10/27/19 [id number] Ambulatory [address] Repository 10/26/2017/10/27/19 [id number] Ambulatory [address] Other [place] Repository 10/26/2017/10/27/19 [id number] Ambulatory [address] MEDICAL Repository CENTERBuildi ng:CAGWS 10/04/2017/10/05/19 [id number] Landon Otto [address] ding[facility] Rep[facility] 09/27/2017/09/28/19 [id number] Landon Otto [address] ding:[facility] Repository 09/23/2017 [id number] Ambulatory [facility] MEDICAL Repository CENTERBuildi ng:CAGWS 08/25/2017/08/26/19 [id number] Ambulatory BMSBuilding: [address] Repository 08/16/2017/08/16/19 [id number] Ambulatory [address] Repository 06/23/2017/06/23/19 [id number] Ambulatory [address] Other [place] Repository 06/23/2017/06/23/19 [id number] Ambulatory [address] MEDICAL Repository CENTERBuildi ng:[facility] 06/16/2017 [id number] Ambulatory [facility] ding:[facility] Repository 06/16/2017 [id number] Ambulatory [facility] ding:[facility] Repository 06/16/2017 [id number] Ambulatory BMSBuilding: [facility] Repository 06/09/2017 [id number] Ambulatory [facility] ding: Repository PAYERS PAYERS ENCOUNTER GUARANTOR PAYER SUBSCRIBER SOURCE 05/20/2018 ZOE Elliott Primary ZOE Elliott Angela [id number] TR Insurance:ELIO ODELLOB: [address] Number: [id number] [facility] Medical Center [address]Wfs: [id number] Repository Date:0263-16-65OI [address] () [address], [place] [address]IK: 05/20/2018 Secondary NOT GIVENUNK [place] Insurance:SELF PAY [facility] Number: Effective Repository Date:2018-05-20 04/29/2018 ZOE Elliott Primary ZOE Elliott [facility]AETNA [facility] MED[facility]ARE PPOPolicy [id number] Repository [facility] [address] Number: [address] [place] [address] [id number] [place] [address]Lsj: Date: () 04/13/2018 ZOE Elliott Primary ZOE C [place] [id number] TR Insurance:AETNA CHARMANDOB: [facility] [address] [place] [address] Number: [id number] Regional Medical Center [address]Tlr: [id number] Repository Date:2279-99-83GC [address] () [place], [place] [address]ED: 04/13/2018 Secondary NOT GIVENUNK [place] Insurance:SELF PAY [facility] Number: Effective Repository Date:2018-04-06 04/12/2018 ZOE C Primary ZOE C [place] [id number] TR Insurance:AETNA CHARMANDOB: [address] Number: [id number] [facility] [place] [address]Tmk: [id number] Repository Date:8543-88-35WZ BOX () 4539[place], [place] [address]VU: 04/12/2018 Secondary NOT GIVENUNK [place] Insurance:SELF PAY [facility] Number: Effective Repository Date:2018-04-12 03/30/2018 ZOE C Primary ZOE C [place] [id number] TR Insurance:AETNA CHARMANDOB: [address] Number: [id number] Regional Medical Center [address]Ael: [id number] Repository Date:9493-81-49UU BOX () [id number] [place]HANNA LU[place] [address]DS: 03/30/2018 Secondary NOT GIVENUNK [place] Insurance:SELF PAY [facility] Number: Effective Repository Date:2017-12-15 03/21/2018 ZOE Elliott Primary ZOE Elliott [facility] Insurance:AETNA CHARMANDOB: Health System MEDICARE PPOPolicy [id number] Repository [facility] [address] Number: [address]ENTERSHARRONSOU[facility], [id number] [place] [address]Ulb: Date: () 03/04/2018 ZOE C Primary ZOE C Angela [id number] TR Insurance:AETNA CHARMANDOB: [address] Number: [id number] Regional Medical Center [address]Zim: [id number] Repository Date:9558-61-96MK BOX () [id number] ZHANNA LUNA [address]BW: 03/04/2018 Secondary NOT GIVENUNK [place] Insurance:SELF PAY [facility] Number: Effective Repository Date:2018-02-23 02/23/2018 ZOE C Primary ZOE C [place] [id number] TR Insurance:AETNA CHARMANDOB: [address] Number: [id number] Regional Medical Center [address]Ohz: [id number] Repository Date:5404-07-29HC BOX () [id number] [place]NA [place] [address]OB: 02/23/2018 Secondary NOT GIVENUNK [place] Insurance:SELF PAY [facility] Number: Effective Repository Date:2018-02-16 02/03/2018 ZOE C Primary ZOE C [place] [id number] TR Insurance:AETNA [address]ARMANDOB: [address] Number: [id number] [place] [address]Kbo: [id number] Repository Date:8672-51-90WR BOX () [id number] [place] [address]OM: 02/03/2018 Secondary NOT GIVENUNK Angela Insurance:SELF PAY [facility] Number: Effective Repository Date:2018-02-03 01/27/2018 ZOE C Primary ZOE C [place] [id number] TR Insurance:KIRATKELLY ODELLOB: [address] Number: [id number] Regional Medical Center [address]Slf: [id number] Repository Date:1551-50-75KC BOX (HP) [id number] [place] [address]UE: 01/27/2018 Secondary NOT GIVENUNK [place] Insurance:SELF PAY [facility] Number: Effective Repository Date:2018-01-20 01/07/2018 ZOE C Primary ZOE C Angela [id number] TR Insurance:ELIO ODELLOB: [address] Number: [id number] Regional Medical Center [address]Hyy: [id number] Repository Date:1887-56-05YA BOX () [id number] SUPAZHANNA [address]SM: 01/07/2018 Secondary NOT GIVENUNK [place] Insurance:SELF PAY [facility] Number: Effective Repository Date:2018-01-07 12/29/2017 ZOE C Primary ZOE C Angela [id number] TR Insurance:KIRATKELLY ODELLOB: [address] Number: [id number] [place] [address]Tce: [id number] Repository Date:9618-38-38ID BOX (HP) [id number] [place]HANNA UL[place] [address]NM: 12/29/2017 Secondary NOT GIVENUNK [place] Insurance:SELF PAY [facility] Number: Effective Repository Date:2017-12-21 12/16/2017 ZOE C Primary ZOE [place] [id number] TR Insurance:AETNA CHARMANDOB: [address] Number: [id number] Regional Medical Center [address]Dvf: [id number] Repository Date:3000-00-40OI BOX (HP) [id number] [address]BH: 12/16/2017 Secondary NOT GIVENUNK [place] Insurance:SELF PAY [facility] Number: Effective Repository Date:2017-12-16 12/16/2017 ZOE Primary ZOE Angela [id number] TR Insurance:AETNA CHARMANDOB: [address] Number: [id number] Regional Medical Center [address]Lfs: [id number] Repository Date:8416-61-63JF BOX () [id number] [place] [address]UY: 12/16/2017 Secondary NOT GIVENUNK [place] Insurance:SELF PAY [facility] Number: Effective Repository Date:2017-11-30 11/05/2017 ZOE Primary ZOE [place] [id number] TR Insurance:AETNA CHARMANDOB: [address] Number: [id number] Regional Medical Center [address]Dcw: [id number] Repository Date:7242-95-57VU BOX (HP) [id number] ZHANNA LU[place] [address]ZD: 11/05/2017 Secondary NOT GIVENUNK [place] Insurance:SELF PAY [facility] Number: Effective Repository Date:2017-11-05 10/26/2017 ZOE C Primary ZOE C [facility] CHARMANDOB: Insurance:AETNA CHARMANDOB: Health System [facility] [id number] Repository [address] Number: TAMMY [id number] [place] [address]Yzu: Date: (HP) 10/04/2017 ZOE Elliott Primary ZOE [place] CHARMANDOB: Insurance:AETNAPolicy CHARMANDOB: [facility] Number: Effective [id number] [facility] Date:2017-10-04 - [facility] Repository [address] [place] [address], [id number] [address] [place] [address] Name:CD:[id number] [facility] [address]Eli: [id number], [place] [address]Ezc: [id number]: [phone]) (HP) [phone] (HP) (WP) 09/27/2017 ZOE Elliott Primary ZOE Elliott [facility]: Insurance:AETNAPolugrdeepy [facility]: [facility] Number: Effective [id number] System [facility] Date:2017-09-27 - [facility] Repository [address] [place] [address], [id number] [address] [place] [address] Name:CD:[id number] [facility] [address]Hha: 025914[place], [place] [address]Ojm: [phone]: [phone]) (HP) [phone] (HP) (WP) 09/23/2017 ZOE Elliott Primary ZOE C [facility] CHARMANDOB: Insurance:AETNA CHARMANDOB: Health System MEDICARE [facility] [id number] Repository [address] Number: [id number] [id number] [place] [address]Akh: Date: () 08/25/2017 ZOE Primary ZOE [place] [id number] TR Insurance:AETNA CHARMANDOB: [address] Number: [id number] Regional Medical Center [address]Uga: [id number] Repository Date:6008-49-30TV BOX () [id number] ZH[place]NA [place] [address]KF: 08/25/2017 Secondary NOT GIVENUNK [place] Insurance:SELF PAY [facility] Number: Effective Repository Date:2017-05-31 06/23/2017 ZOE C Primary ZOE C [facility] Insurance:AETNA CHARMANDOB: Health System MEDICARE PPOPolicy [id number] Repository [facility] [address] Number: [address] [place] [address] [id number] [place] [address]Vme: Date: () 06/16/2017 ZOE Primary ZOE [place] [id number] TR Insurance:AETNA CHARMANDOB: [address] Number: [id number] Regional Medical Center [address]Gth: [id number] Repository Date:9921-10-61FU BOX () [id number] [place] [address]SR: 06/16/2017 Secondary NOT GIVENUNK Angela Insurance:SELF PAY [facility] Number: Effective Repository Date:2017-05-18 06/16/2017 ZOE Primary ZOEECTOR Miller [id number] TR Insurance:AETNA CHARMANDOB: [address] Number: [id number] Regional Medical Center [address]Yhj: [id number] Repository Date:2201-95-19WG BOX () 524556YRZHANNA LUCERO [address]ER: 06/16/2017 Secondary NOT GIVENUNK [place] Insurance:SELF PAY [facility] Number: Effective Repository Date:2017-05-22 06/16/2017 ZOE Primary ZOE [id number] TR Insurance:AENIKKIE ODELLOB: [address] Number: [id number] Regional Medical Center [address]Unv: [id number] Repository Date:1142-95-49TM BOX () [id number] [place] [address]AH: 06/16/2017 Secondary NOT GIVENUNK [place] Insurance:SELF PAY [facility] Number: Effective Repository Date:2017-06-16 06/09/2017 ZOE Primary ZOE Miller [id number] TR Insurance:ELIO ODELLOB: [address] Number: [id number] Regional Medical Center [address]Klm: [id number] Repository Date:9400-08-11YP BOX () [id number] [place] [address]CW: 06/09/2017 Secondary NOT GIVENUNK [place] Insurance:SELF PAY [facility] Number: Effective Repository Date:2017-06-03
== END ==
PROVIDERS: Family Provider Family Medicine; PCP Family Medicine; Referring Provider Clinical Nurse Specialist Acute Care; Visit Provider Clinical Nurse Specialist Acute Care
DX: D64.9 Anemia, unspecified (principal)
CPT/HCPCS: 36415; 82607; 82728; 82746; 83540; 83550

== ENCOUNTER → 2018-11-10 10:56 | Outpatient (CLI) | payer MEDICARE, SELFPAY ==
[2018-10-20 14:50] VITALS: BMI 21.9
--- NOTE | 2018-11-10 10:59 | ECHOD_ITS ---
Reason For Study: Arrhythmia Procedure This was a 2D Doppler, Color Flow transthoracic echocardiogram. Exam performed in department. Left Ventricle Normal LV size. Sigmoid septum. Left ventricular systolic function is normal. The estimated ejection fraction is 55 %. Unable to assess diastolic dysfunction. No regional wall motion abnormalities noted. Right Ventricle Normal RV size. Normal systolic function. Atria The left atrium is moderately enlarged. The right atrium is mildly enlarged. No doppler evidence for ASD. Mitral Valve There is mild mitral annular calcification. Extension of the mitral annular calcification onto the base of the posterior mitral valve leaflet. Mild diffuse mitral valve thickening. Equivocal mitral valve prolapse. Trivial mitral valve insufficiency. Tricuspid Valve Normal tricuspid valve. Mild tricuspid valve insufficiency. Right ventricular systolic pressure estimated to be 29 mmHg. Aortic Valve Trisinus/trileaflet aortic valve. Mild diffuse aortic valve thickening. Mild focal aortic valve calcification. Mild aortic stenosis. Pulmonic Valve The pulmonic valve is not well visualized. Trivial pulmonic valve insufficiency. Great Vessels Borderline enlarged aortic root. Pericardium/Pleural No pericardial effusion. MMode/2D Measurements & Calculations LVIDd: 3.8 cm IVSd: 1.7 cm LVOT diam: 2.1 cm LVIDs: 2.7 cm LVPWd: 1.3 cm LVOT area: 3.4 cm2 RVDd: 4.0 cm FS: 29.5 % Ao root diam: 3.9 cm LAV(MOD-bp): 66.3 ml LA A4 area: 21.4 cm2 LA dimension: 4.3 cm LAV(MOD-bp) Indexed: 37.7 ml/m2 LAV(MOD-sp2): 65.8 ml LAV(MOD-sp4): 65.6 ml RA A4 area: 21.2 cm2 Time Measurements MV dec time: 0.27 sec Doppler Measurements & Calculations MV E max praveen: 64.7 cm/sec MV V2 max: 98.4 cm/sec MV P1/2t max praveen: 75.3 cm/sec MV A max praveen: 95.4 cm/sec MV max P.9 mmHg MV P1/2t: 107.0 msec MV E/A: 0.68 MV V2 mean: 42.0 cm/sec MV dec slope: 206.2 cm/sec2 MV mean P.89 mmHg MV V2 VTI: 37.8 cm MVA(P1/2t): 2.1 cm2 Ao V2 max: 159.2 cm/sec LV V1 max: 85.6 cm/sec PA V2 max: 81.1 cm/sec Ao max P.1 mmHg LV V1 max P.9 mmHg RASHAD(V,D): 1.8 cm2 TR max praveen: 254.7 cm/sec TR max P.9 mmHg Interpretation Summary Left ventricular systolic function is normal. The estimated ejection fraction is 55 %. Sigmoid septum. The left atrium is moderately enlarged. The right atrium is mildly enlarged. There is mild mitral annular calcification. Extension of the mitral annular calcification onto the base of the posterior mitral valve leaflet. Mild diffuse mitral valve thickening. Equivocal mitral valve prolapse. Trivial mitral valve insufficiency. Mild tricuspid valve insufficiency. Mild aortic stenosis. Trivial pulmonic valve insufficiency. Borderline enlarged aortic root. Right ventricular systolic pressure estimated to be 29 mmHg. Unable to assess diastolic dysfunction. Ordering Physician: Chan Jean-Baptiste Referring Physician: Chan Jean-Baptiste Performed By: Jacky Main RCS
== END ==
PROVIDERS: Family Provider Family Medicine; PCP Family Medicine; Referring Provider Internal Medicine Cardiovascular Disease; Visit Provider Internal Medicine Cardiovascular Disease
DX: I49.3 Ventricular premature depolarization (principal)
CPT/HCPCS: 93306

== ENCOUNTER → 2020-11-21 12:50 | Outpatient (CLI) | payer MEDICARE, SELFPAY ==
[2020-11-11 10:56] VITALS: BMI 21.3
--- NOTE | 2020-11-21 12:51 | ECHOD_ITS ---
Reason For Study: MURMUR Procedure This was a 2D Doppler, Color Flow transthoracic echocardiogram. The exam was of adequate technical quality. Exam performed in department. Left Ventricle Normal LV size. Sigmoid septum. Left ventricular systolic function is normal. The estimated ejection fraction is 55 %. There is evidence of diastolic dysfunction. No regional wall motion abnormalities noted. Right Ventricle Normal RV size. Normal systolic function. Atria The left atrium is mildly enlarged. The right atrium is mildly enlarged. No doppler evidence for ASD. Mitral Valve There is moderate mitral annular calcification. Moderate diffuse mitral valve thickening. Myxomatous mitral valve. Mild mitral valve prolapse. Trivial mitral valve insufficiency. Tricuspid Valve Mild diffuse thickening of the tricuspid valve. Trivial tricuspid valve insufficiency. Right ventricular systolic pressure estimated to be 26 mmHg. Aortic Valve Trisinus/trileaflet aortic valve. Mild diffuse aortic valve thickening. Mild focal aortic valve calcification. Mild aortic stenosis. Pulmonic Valve Normal pulmonic valve. Trivial pulmonic valve insufficiency. Great Vessels Normal sized aortic root. Pericardium/Pleural No pericardial effusion. MMode/2D Measurements & Calculations LVIDd: 4.5 cm IVSd: 0.89 cm LVOT diam: 1.9 cm LVIDs: 3.0 cm LVPWd: 0.98 cm LVOT area: 2.9 cm2 RVDd: 3.8 cm FS: 32.5 % Ao root diam: 3.2 cm LAV(MOD-bp): 60.9 ml LVAd ap4: 35.0 cm2 LAV(MOD-bp) Indexed: 34.7 ml/m2 LVLd ap4: 7.9 cm LAV(MOD-sp2): 72.6 ml EDV(MOD-sp4): 124.9 ml LAV(MOD-sp4): 50.4 ml EDV(sp4-el): 132.1 ml LVAs ap4: 22.0 cm2 LVLs ap4: 6.9 cm ESV(MOD-sp4): 58.5 ml ESV(sp4-el): 59.3 ml EF(MOD-sp4): 53.2 % EF(sp4-el): 55.1 % SV(MOD-sp4): 66.4 ml SV(sp4-el): 72.8 ml LA A4 area: 18.5 cm2 LA dimension(2D): 3.9 cm RA A4 area: 17.0 cm2 Time Measurements MV dec time: 0.42 sec Doppler Measurements & Calculations MV E max scottie: 65.9 cm/sec Lat Peak E' Scottie: 6.6 cm/sec Med Peak E' Scottie: 4.1 cm/sec MV A max scottie: 98.8 cm/sec E/E' lat: 9.9 E/E' med: 15.9 MV E/A: 0.67 Ao V2 max: 152.3 cm/sec LV V1 max: 89.7 cm/sec PA V2 max: 87.5 cm/sec Ao max P.3 mmHg LV V1 max P.2 mmHg RASHAD(V,D): 1.7 cm2 PI end-d scottie: 76.7 cm/sec TR max scottie: 239.8 cm/sec TR max P.0 mmHg ECHO/Echo Complete Interpretation Summary Left ventricular systolic function is normal. The estimated ejection fraction is 55 %. Sigmoid septum. The left atrium is mildly enlarged. The right atrium is mildly enlarged. There is moderate mitral annular calcification. Myxomatous mitral valve. Moderate diffuse mitral valve thickening. Mild mitral valve prolapse. Trivial mitral valve insufficiency. Mild diffuse thickening of the tricuspid valve. Trivial tricuspid valve insufficiency. Mild aortic stenosis. Trivial pulmonic valve insufficiency. Right ventricular systolic pressure estimated to be 26 mmHg. There is evidence of diastolic dysfunction. Ordering Physician: Chan Jean-Baptiste Referring Physician: CATHERINE JEFFRIES Performed By: Christi Garzon RDCS
== END ==
PROVIDERS: PCP Family Medicine; Referring Provider Internal Medicine Cardiovascular Disease; Visit Provider Internal Medicine Cardiovascular Disease
DX: I47.1 Supraventricular tachycardia (principal); I35.0 Nonrheumatic aortic (valve) stenosis
CPT/HCPCS: 93306

== ENCOUNTER → 2021-06-18 | Outpatient (CLI) | payer MEDICARE, SELFPAY | END | disposition home or self-care (01) | LOC: LABSPEC 16:46 | PROVIDERS: PCP Family Medicine; Visit Provider Family Medicine | DX: Z20.828 Contact with and (suspected) exposure to other viral communicable diseases (principal) | CPT/HCPCS: 87635; U0005; U0003 ==

== ENCOUNTER → 2021-12-04 | Outpatient (CLI) | payer MEDICARE, SELFPAY ==
[2021-12-04 15:45] LABS: ALB/GLOB Ratio 1.1 RATIO (0.9-2.4); AST(SGOT) 21 U/L (15-37); Alanine Aminotransfer ALT/SGPT 23 U/L (13-56); Albumin, Serum 3.6 g/dL (3.2-5.0); Alkaline Phosphatase 95 U/L (45-117); Anion Gap 5 (5-15); BUN 17 mg/dL (7-18); BUN/Creat Ratio 22.6 RATIO (10-20); Calcium,Total 9.1 mg/dL (8.5-10.1); Chloride 101 mmol/L (98-107); Creatinine, Serum 0.75 mg/dL (0.55-1.02); EST Glomerular Filtration Rate 79 mL/min (>60); Est Glom Filt Rate - Afr Amer 95 mL/min (>60); Globulin 3.3 g/dL (2.2-4.2); Glucose 85 mg/dL (74-106); Protein, Total 6.9 g/dL (6.4-8.2); Sodium Level 137 mmol/L (136-145); Thyroid Stim Hormone (TSH) 2.49 uIU/mL (0.358-3.74)
[2021-12-04 17:57] LABS: Absolute Lymphocyte Count 1.52 X10^3/uL (0.83-4.51); Absolute Neutrophil Count 2.8 X10^3/uL (2.0-7.7); Basophil# 0.04 X10^3/uL; Basophil% 0.8 % (0-1); Eosinophil# 0.06 X10^3/uL; Eosinophils% 1.2 % (0-5); Hemoglobin 12.8 g/dL (12.0-15.0); Lymphocyte # 1.52 X10^3/ul (0.83-4.51); Lymphocyte % 30.2 % (19-41); Mean Corp Hgb Conc 33.7 g/dL (32-36); Mean Corpuscular Hgb 31.7 pg (27.0-32.0); Mean Corpuscular Volume 94.1 fL (81-99); Mean Platelet Vol. 11.2 fl (6.2-12.0); Monocyte# 0.59 X10^3/uL; Monocyte% 11.7 % (0-10); NRBC Flagged by Analyzer 0 % (0-5); Neutrophil # 2.81 X10^3/uL (2.7-7.7); Neutrophil % 55.7 % (47-70); Platelet Count 186 K/mm3 (150-450); RBC Distribution Width CV 11.4 % (11.6-14.6); RBC Distribution Width SD 39.8 fl (35.1-43.9); Red Blood Count 4.04 M/mm3 (4.2-5.4)
== END | disposition home or self-care (01) ==
LOC: MTLAB 11:44
PROVIDERS: PCP Family Medicine; Referring Provider Family Medicine; Visit Provider Family Medicine
DX: R00.1 Bradycardia, unspecified (principal); G62.9 Polyneuropathy, unspecified
CPT/HCPCS: 36415; 80053; 84443; 85025

== ENCOUNTER → 2022-12-10 | Outpatient (CLI) | payer MEDICARE, SELFPAY ==
[2022-12-10 15:58] LABS: Absolute Lymphocyte Count 1.07 X10^3/uL (0.83-4.51); Absolute Neutrophil Count 3.1 X10^3/uL (2.0-7.7); Basophil# 0.05 X10^3/uL; Basophil% 1.1 % (0-1); Eosinophil# 0.03 X10^3/uL; Eosinophils% 0.6 % (0-5); Hematocrit 36.4 % (37-47); Hemoglobin 12.1 g/dL (12.0-15.0); Lymphocyte # 1.07 X10^3/ul (0.83-4.51); Lymphocyte % 22.8 % (19-41); Mean Corp Hgb Conc 33.2 g/dL (32-36); Mean Corpuscular Hgb 31.5 pg (27.0-32.0); Mean Corpuscular Volume 94.8 fL (81-99); Monocyte# 0.48 X10^3/uL; Monocyte% 10.2 % (0-10); NRBC Flagged by Analyzer 0 % (0-5); Neutrophil # 3.05 X10^3/uL (2.7-7.7); Neutrophil % 65.1 % (47-70); Platelet Count 209 K/mm3 (150-450); RBC Distribution Width CV 11.8 % (11.6-14.6); Red Blood Count 3.84 M/mm3 (4.2-5.4); White Blood Count 4.7 K/mm3 (4.4-11.0)
[2022-12-10 16:10] LABS: AST(SGOT) 25 U/L (15-37); Alanine Aminotransfer ALT/SGPT 18 U/L (13-56); Albumin, Serum 3.6 g/dL (3.2-5.0); Alkaline Phosphatase 101 U/L (45-117); Anion Gap 7 (5-15); BUN 13 mg/dL (7-18); BUN/Creat Ratio 17.8 RATIO (10-20); Chloride 100 mmol/L (98-107); Creatinine, Serum 0.73 mg/dL (0.55-1.02); EST Glomerular Filtration Rate 81 mL/min (>60); Est Glom Filt Rate - Afr Amer 98 mL/min (>60); Globulin 3.5 g/dL (2.2-4.2); Glucose 95 mg/dL (74-106); Potassium 4.1 mmol/L (3.5-5.1); Protein, Total 7.1 g/dL (6.4-8.2); Sodium Level 137 mmol/L (136-145)
== END | disposition home or self-care (01) ==
LOC: BFHLAB 11:12
PROVIDERS: PCP Family Medicine; Visit Provider Family Medicine
DX: R53.82 Chronic fatigue, unspecified (principal); Z51.81 Encounter for therapeutic drug level monitoring
CPT/HCPCS: 36415; 80053; 85025

== ENCOUNTER → 2023-01-07 | Outpatient (CLI) | payer MEDICARE, SELFPAY ==
--- NOTE | 2023-01-07 13:21 | CT_ITS ---
PROCEDURE: CT RIGHT KNEE WITHOUT CONTRAST REASON FOR EXAM: Female, 82 years old. Preoperative planning for the [employer] Robotic knee surgery. Knee pain. TECHNIQUE: Transaxial CT of the hip, knee and ankle were obtained. Coronal and sagittal reconstruction images of the knee were provided. Individualized dose optimization techniques were used for this CT. COMPARISON: None. FINDINGS: Standard protocol for the preoperative planning for the MakoPl[employer] robotic knee surgery was performed. Mild arthrosis of the right hip, moderate to marked tricompartmental arthrosis of the right knee and mild arthrosis of the tibiotalar joint. CT/Extremity Lower without Contra IMPRESSION: Preoperative M[employer] Robotic knee surgical CT evaluation with findings as described above. Electronically Signed: Raymond Hays MD at 14:44 EDT ,
== END | disposition home or self-care (01) ==
LOC: PSN 13:02 → CT 13:12
PROVIDERS: PCP Family Medicine; Referring Provider Orthopaedic Surgery; Visit Provider Orthopaedic Surgery
DX: M17.11 Unilateral primary osteoarthritis, right knee (principal); M25.561 Pain in right knee
CPT/HCPCS: 73700

== ENCOUNTER 2023-03-01 14:23 | Observation (INO) | payer MEDICARE, SELFPAY ==
[2023-01-14 17:59] LABS: Hemoglobin A1c 5.4 % (3.8-5.6)
[2023-01-14 18:11] LABS: Magnesium 2.2 mg/dL (1.6-2.6)
[2023-02-23 10:22] LABS: Magnesium 2.3 mg/dL (1.6-2.6)
[2023-03-01] VITALS (10 sets, daily range): BP systolic 94–135; BP diastolic 42–64; PULSE 58–81; RESP 10–18; TEMP 36.1–36.7; O2SAT 96–100; BMI 22.4
[2023-03-01] MEDS: Lactated Ringers 1,000 ML 15 ML IV (08:07)
[2023-03-01] MEDS: Magnesium 1 GM over 15 mins IV (08:08)
[2023-03-01] MEDS: Gabapentin 600 MG Tablet PO (08:09)
[2023-03-01] MEDS: Acetaminophen 500 MG Tablet 1000 MG PO ×3 (08:09→21:49)
[2023-03-01 08:13] LABS: Bedside Glucose 77 mg/dL (74-106)
--- NOTE | 2023-03-01 09:45 | KNEE_PTH ---
PATIENT: ZOE CABRALES LOC: MS3 U#:[id number] AGE/SX: 82/F [place] [facility] [place]: Dr. Cesar Betancur DO : 1940 BED: 1 DIS: 03/03/2023 SPEC #: [id number] RECD: 03/01/23 14:55 STATUS: BLESSING REElena #: [id number] OSWALDO: 03/01/23 09:[address]: Cesar Betancur DEPT: SURGICAL PATHOLOGY RECD BY: Lachelle Miller ENTERED: 03/02/23 09:01 SP TYPE: TOTAL KNEE OTHR DR: DO Raymond Zaragoza PA-C Tissues: Knee, NOS Procedures: Decalcification bone/plaque Surgery Specimen Level IV HEADER OPERATION: JN, robotic assisted right total knee arthroplasty PRE-OP DIAGNOSIS: Unilateral primary osteoarthritis right knee TISSUE SUBMITTED: Right knee bone and tissue MICROSCOPIC DIAGNOSIS Bone and tissue of right knee, total knee resection: Severe degenerative joint disease. Polarizable crystals of pseudogout. AM:cata 03/05/2023 MICROSCOPIC DESCRIPTION Slides are reviewed. GROSS DESCRIPTION Received is one container designated bone and soft tissue right knee. The specimen consists of multiple fragments of henry-yellow bone measuring in aggregate 10.0 x 9.0 x 3.5 cm. Also in the specimen container are multiple fragments of predominantly fibrocartilaginous tissue measuring in aggregate 6.5 x 3.5 x 1.5 cm. A few chalky white deposits are noted. A number of bony fragments contain articular surfaces consistent with tibial plateau and femoral condyle and displaying prominent osteophyte formation, eburnation and bone erosion. Cuff Setter Overlock sections are submitted in two cassettes as follows: 1 - soft tissue, 2 - bone after decalcification. / SJ:cata 03/02/2023 TC:5 CPT: 95633, 04871
[2023-03-01] MEDS: Cefazolin 2 GM in 0.9% Normal Saline (100mL Bag) 100 ML IV (10:05)
[2023-03-01] MEDS: TXA 1000mg in NS100 100ml (IVPB at Closure) 660 MG IV (10:15)
[2023-03-01] MEDS: JPS (Morphine 10mg/ml) OPERA.SITE (11:37)
[2023-03-01] MEDS: TXA 1000mg in NS100 100ml (IVPB at Incision) 660 MG IV (11:39)
--- NOTE | 2023-03-01 11:45 | OP.PCM_ITS ---
Report of Operation Date of Procedure: 03/01/23 Pre-Operative Diagnosis: OA right knee Post-Operative Diagnosis: same Surgery/Procedure Performed:: Right TKR Description of Surgical Findings:: Report of Operation Date of Procedure: 03/01/2023 Preoperative Diagnosis: [ right ] knee primary osteoarthritis Postoperative Diagnosis: [right ] knee primary osteoarthritis Operation: Robotic Assisted Knee Total Arthroplasty, [right ] knee Surgeon: Dr Cesar Betancur DO Glue Drier Operator: Raymond Dorado PA-C Anesthesia: General Anesthesiologist: Lisandro Ball M.D. Findings: Stable knee with good patella tracking Specimen(s): Bony cuts Complications: No intraoperative complications Estimated Blood Loss: 30 cc IV Fluids: 1000 cc crystalloid Implants Used: 1. Mellisa Triathlon CR cemented size 5 femur 2. Pacific size 4 tibia 3. 35 mm cemented patella 4. 9 mm CS polyethylene Brief History Operative Indications: [ (82 y/o female) ] with history of [ right ] knee osteoarthrosis with radiographic findings with loss of joint space, osteophyte formation and subchondral sclerosis. Failed conservative measures as mentioned in the H&P. Discussion of total knee arthroplasty as well as risk and benefits were discussed with the patient including but not limited to blood loss, DVTs, PEs, neurovascular damage, general risk of anesthesia including loss of life, and stiffness or instability were also discussed with the patient. Patient demonstrated understanding and was able to sign informed consent. Procedure: On the date of procedure, patient's [ right ] lower extremity was marked in the preoperative area. The patient was then taken back to the operating room where that patient was placed on the table in the supine position. All bony prominences were identified and well-padded. Anesthesia assumed control of the C-spine and airway throughout the remainder of the procedure. A tourniquet was placed on the [right ] upper thigh and the leg was prepped in a sterile fashion. The surgeon then scrubbed at this time. Upon reentering the room, the [right ] lower extremity was draped in a standard orthopedic fashion. A timeout was then called and everyone agreed upon the side, the site, the procedure to be performed, patient's identity and antibiotics given. Esmarch bandage was used to exsanguinate the extremity and the tourniquet was placed up to 250 mmHg with the knee in flexion. A midline skin incision was made and a sharp dissection was taken down through skin, subcutaneous tissue and fat. The standard medial parapatellar incision was made and the patella was subluxed laterally. An appropriate deep MCL release was done and the fat pad was resected. Our attention was then directed to the patella. The patella was everted and a f lat resection was made. The knee was then flexed up and 2 femoral pins were placed inside the incision and 2 tibial pins were placed outside the incision in the medial tibia bicortically. Once this was completed, the 2 checkpoints in the femur and tibia were placed. Knee was then flexed up and the bony landmarks were registered. Once the was completed, the knee taken through range of motion and manually stressed allowing us to plan for an appropriate tibial cut. The robotic arm was brought into the field sterilely and checkpoint and saw were registered. Based on the patient's deformity, the tibial cut was made in [ 2 degrees varus ]. At this time, the tensioner was then placed in the joint and ligament tension was checked at 90 degrees and full extension. Based on the patient's ligamentous tension, appropriate adjustments were made to the operative plan and ligament releases were done. Once we were happy with our operative plan with balanced flexion and extension gaps, our attention was directed to the femur. The robot was brought into the field sterilely and registered. Posterior condylar cuts, anterior chamfer cuts and anterior cuts were appropriately made for a [size 5 ] femur. When these were completed, the saws were switched out in the distal femoral and posterior chamfer cuts were made. Protecting the soft tissue throughout this time. A [ size 4 ] base plate was selected. The knee was flexed to 90 degrees and soft tissues and posterior osteophytes were removed from the joint. 40 cc of the periarticular injection was injected into the posterior medial corner of the joint. The appropriate trials were then placed on the femur and tibia. A trial polyethylene was trialed to ensure proper balancing and stability of the knee. The appropriate tibial internal rotation was then marked with a bovie. Our attention was then directed to the patella. The lug holes were drilled and the patella trial was placed. Patellar tracking was checked and deemed appropriate. Once we were happy, lug holes were drilled for the femur and trial components were removed. The tibia was subluxed and pinned into place and the keel was punched and drilled appropriately. Final components were verified and opened. The bone was copiously irrigated with pulstatile lavage and dried thoroughly while cement was mixed under 3rd generation techniques. Cement was then applied to the tibia, the femur and the patella in sequence. The components were then impacted into place and ecess cement was removed with curettes. The wound was copiously irrigated with normal saline. The trial poly component was placed and the knee was placed in full extension. The tracking, alignment and balance were verified and a [9 mm CS ] polyethylene component was placed. Once the final components were placed an Irrisept lavage was performed and the wound was copiously irrigated with normal saline solution and the periarticular injection was given. the wound was closed in a layer-dsouza fashion using #1 vicryl interrupted sutures for the arthrotomy, 2-0 interrupted vicryl suture for the subcuticular layer and ivet for final skin closure. A sterile compressive dressing was then placed. The patient was then awakened from anesthesia, transferred to the [facility] and transferred to the PACU for recovery. My physician primary teaching assistant was a vital part of this case. He was important in appropriate retraction during the case, and protection of soft tissues during bony cuts. His intimate knowledge of the case and my steps aided in safe and expedient completion of the procedure as well as appropriate position of the leg during the case. He was also vital in assisting with closure under my direct supervision. Due to the complexity of this case, robotic arm was used to assist in the surgery to improve accuracy and clinical outcomes. Post-op Plan: DVT ppx; ASA 81 mg BID, thigh high compression stockings Follow up: in office in 2 weeks for wound check PT: to start POD #0 at hospital, outpatient PT should be arranged. Preoperative antibiotic: Ancef 2 grams IV Cesar Betancur DO Surgeon: Cesar Betancur conference services director: Raymond Dorado Type of Anesthesia: General/Regional Anesthesiologist: Lisandro Ball Specimen's removed: bone Estimated Blood Loss (mL): 30 cc Fluids Replaced: 1000 cc crystalloid Admit VTE Documentation VTE Present on Admission: No VTE Mechan Device Prophylaxis: SCD's and Thigh High GARCIA Hose VTE Pharm Prophylaxis ordered?: Yes
--- NOTE | 2023-03-01 12:22 | RAD_ITS ---
INDICATION: post-op -- in PACU EXAMINATION/TECHNIQUE: X-RAY - RIGHT XR Knee 1 or 2 Views 2 VIEWS COMPARISON: : No relevant prior comparison study available FINDINGS: SOFT TISSUES: Expected postoperative changes involving the soft tissues. Subcutaneous emphysema is noted. Surgical clips are present. No radiopaque foreign body. BONES/JOINTS: Postoperative changes of knee arthroplasty with normal alignment. No hardware failure. No fractures evident. No destructive bony process. RAD/Knee 1 or 2 Views IMPRESSION: 1. Postoperative changes of recent total knee arthroplasty. Normal alignment without fracture or hardware failure. No destructive bony process. 2. Expected postoperative changes in the soft tissues. Electronically Signed: Shoaib Chen MD at 17:13 EDT ,
--- NOTE | 2023-03-01 12:37 | SUR.PHASEI ---
PATIENT HAD AN LMA IN WHEN SHE ARRIVED IN PACU. REMOVED BY DR. ARAIZA ABOUT 5 MINUTES LATER.
[2023-03-01] MEDS: Lactated Ringers 1,000 ML 999 ML IV (12:42)
[2023-03-01] MEDS: Lactated Ringers 1,000 ML 125 ML IV (14:19)
[2023-03-01] MEDS: 0.9% Normal Saline (1000mL) 1,000 ML 100 ML IV (21:48)
[2023-03-01] MEDS: clonazePAM 0.5 MG Tablet PO (21:49)
[2023-03-01] MEDS: Pregabalin 25 MG Capsule PO (21:49)
[2023-03-02] VITALS (8 sets, daily range): BP systolic 89–127; BP diastolic 52–60; PULSE 65–72; RESP 17–18; TEMP 36.5–36.7; O2SAT 95–100
[2023-03-02] MEDS: Acetaminophen 500 MG Tablet 1000 MG PO ×3 (05:07→20:46)
[2023-03-02] MEDS: 0.9% Normal Saline (1000mL) 1,000 ML 100 ML IV ×2 (05:10→16:23)
--- NOTE | 2023-03-02 07:53 | PN.ORTHO_ITS ---
Subjective Subjective Patient ambulating in the room with a walker. States her knee is stiff and sore. The pain has been well managed. Patient denies chest pain, shortness of breath, calf pain, nausea vomiting. Patient states she will be ready for discharge home this afternoon after therapy. Patient with doing outpatient physical therapy at [facility] Objective Data Objective Data Vital Signs: Vital Signs Temp Pulse Resp BP Pulse Ox O2 Del Method O2 Flow Rate 98.1 F 70 18 102/52 L 100 Nasal Cannula 2 03/02/23 04:44 03/02/23 04:44 03/02/23 04:44 03/02/23 04:44 03/02/23 04:44 03/02/23 04:44 03/02/23 04:44 Oxygen Flow Rate (L/min) 2 Oxygen Delivery Method Nasal Cannula Weight: 61.235 kg Body Mass Index (BMI) 22.4 Intake & Output: Intake and Output for Last 24 Hours 02/28/23 03/01/23 03/02/23 23:59 23:59 23:59 Intake Total 3409.08 / 3409.08 736.67 / 736.67 Balance 3409.08 / 3409.08 736.67 / 736.67 Lab / Micro Data Labs: Laboratory Results - last 24 hr 03/01/23 07:42: POC Glucose 77 Micro: Microbiology 02/23/23 09:32 Swab (Method) Nasal Screen MRSA/MSSA - Final 01/14/23 16:50 Swab (Method) Nasal Screen MRSA/MSSA - Final Radiography Diagnostic Testing: Radiology Impression Knee X-Ray 03/01/23 12:22 IMPRESSION: 1. Postoperative changes of recent total knee arthroplasty. Normal alignment without fracture or hardware failure. No destructive bony process. 2. Expected postoperative changes in the soft tissues. Electronically Signed: Shoaib Chen MD at 17:13 EDT , Physical Exam Narrative Exam, patient was alert and oriented. Patient ambulating with a walker. Good motion of the upper extremities. Patient in no respiratory distress speaking in full sentences. Patient's dressing was clean dry intact. No calf tenderness. Neurovascular is otherwise intact. Const alert and oriented x3 General Appearance: cooperative HEENT normocephalic Eyes PERRL Resp normal respiratory effort Effort and Inspection: able to speak in complete sentences Neuro CN's II-XII intact bilaterally Psych mental status grossly normal Assessment & Plan Assessment/Plan (1) Status post total right knee replacement using cement: PLAN: 1. Continue pain medications as prescribed 2. Aspirin 81 mg 1 p.o. every 12 hours x30 days for postop DVT prophylaxis 3. Encourage incentive spirometry 4. Continue ice to right knee 5. Ambulate with walker weight-bear as tolerated 6. Shower in 3 days 7. Begin physical therapy at [facility] 03/03/2023 8. Follow-up as scheduled 9. Discharge home after p.m. therapy 10. Patient has all home-going meds which were prescribed and filled preoperatively
--- NOTE | 2023-03-02 07:58 | DCINST_ITS ---
Discharge Instructions Diet Discharge Diet: No restrictions Activity Discharge Activity: May Not Drive and May Shower May shower in (days): 3 May resume sexual activity in: No Restrictions Weight Bearing Status: Weight bearing as tolerated Keep extremity elevated above heart level: Operative Extremity Dressing / Incision Call your doctor if your incision/area has: Continuous Slow Oozing, Sudden Increased Bleeding, Increased Pain/ Swelling, Increased Redness, Foul Smelling Discharge and Swelling at the incision site Call your doctor if you observe: Fever of 101 or Higher Change Dressing in: 1 week Remove Dressing in: leave in place till F/U Follow Up Care Please Follow Up With: Raymond Dorado, PA-C When: as scheduled Test Results: Test results from this visit will be discussed in further detail at your follow- up appointment, if applicable. Discharge Plan Admission Admit Date/Time: 03/01/23 14:23 Primary Reason for Your Visit: Postop right total knee Attending Provider: Cesar Betancur Primary Care Provider: Christiano Diehl Consulting Providers: Raymond Dorado Discharge Orders/Prescriptions Prescriptions: Continued clonazepam 0.5 mg tablet 0.5 mg PO QHS cholecalciferol (vitamin D3) 1,000 unit capsule 2,000 unit PO DAILY multivitamin Tablet 1 tab PO DAILY tolterodine 2 mg capsule,extended release 24hr 2 mg PO DAILY Patient Comments: take 1 capsule by mouth once daily alpha lipoic acid 600 mg capsule 600 mg PO BID vitamin A09-csuuw acid 1,000-400 mcg lozenge 10,000 kerry sublingual DAILY pregabalin 25 mg capsule 25 mg PO BID Patient Comments: TAKE 1 CAPSULE BY MOUTH IN THE MORNING AND 1 CAPSULE BEFORE BEDTIME metoprolol succinate 50 mg tablet extended release 24 hr 50 mg PO DAILY Qty: 90 3RF Referrals / Follow Up: Christiano Diehl DO [Primary Care Provider] - Disposition Disposition (needs filled in before D/C Order can be placed): Home, Self Care
[2023-03-02] MEDS: Cholecalciferol (VIT D3) 25 MCG TABLET (1,000 UNITS) 50 MCG PO (09:34)
[2023-03-02] MEDS: Vitamin B Comp W-C Capsule 1 CAP PO (09:35)
[2023-03-02] MEDS: Multivitamins,Therapeutic Tablet 1 TABLET PO (09:35)
[2023-03-02] MEDS: Tolterodine Tartrate 2 MG CAP.SA PO (09:36)
[2023-03-02] MEDS: oxyCODONE 5 MG Tablet PO (09:53)
[2023-03-02] MEDS: Aspirin 81 MG TAB.CHEW PO ×2 (09:53→16:49)
[2023-03-02] MEDS: 0.9% Normal Saline (1000mL) 1,000 ML 999 ML IV ×2 (10:00→16:23)
--- NOTE | 2023-03-02 10:25 | CASEMGMT ---
A list of home healthcare providers including quality and resource use data and consistent with the patient?s preferred geographic region, medical needs, and insurance network was created in [employer] Guide. This list was provided to the RN CM. Katty Melara, Discharge Planning Asst.
--- NOTE | 2023-03-02 10:50 | CASEMGMT ---
Social Work - Initial Assessment SW?to room to meet with patient for initial transition planning/care coordination?assessment.?SW?introduced self and role at [facility].? Pt voices understanding and consents to?assessment.? Pt is A/Ox4 and answers all questions appropriately.?? Care providers, pharmacy, and demographics verified. Daughter Estefani entered room mid conversation, engaged and appearing concerned and supportive of the patient. PCP: Christiano Diehl Specialists: Dr. Betancur, Dr. Leblanc Preferred Pharmacy: [facility] Insurance: [employer] Medicare Prescription Benefit:?yes Living Will/HPOA:?Daughter Estefani Loya; reports two other children are also listed on the forms. Estefani verbally agrees to bring copy of directive into the hospital. LNOK: Reports to have 5 living children, 3 of whom who live local, 1 in [facility], and 1 out of state. Living Arrangements: Reports to live alone in a one story log cabin. There are multiple steps into the home, but two if enters from the back door. [place], has been independent at home, walking on average 2.5 miles a day inside the home. Transportation:?Normally independent; daughters are able to assist during recovery period after surgery. DME: ? Reports to have a raised toilet seat, wheelchair, and a standard walker with 2 tennis balls attached. HHC/SNF: No history of such, but reports interest in short term HHC before transitioning to outpatient therapy. Educated that KWAKU Szymanski will stop by to provide a list of providers consistent with geographic region, insurnace network, and quality data. Patient voiced wish for Estefani to be given the list of HHC agencies and to trust daughter with this decision making. PLAN: Home with assist of daughters, and wish for HHC for a short time. Handoff to KWAKU Szymanski. -TANIKA Ramon
--- NOTE | 2023-03-02 11:03 | CASEMGMT ---
Addendum entered by Nessa Romero 03/02/23 13:52: Received notification that [facility] can accept pt for SOC on , pt dtr Estefani aware. Original Note: KWAKU MARSHALL made aware that pt is interested in HHC by therapy and SW and pt wishes for dtr Estefani to decide MEDICAL SOCIAL WORKER. KWAKU MARSHALL met with Estefani, provided her with a HH list created by la planner/scheduler. She asks if [facility] HHC would be a possibility as it did not show on the list. TC danie Topete at [facility], referral left on voicemail, will await to see if able to accept.
--- NOTE | 2023-03-02 11:20 | CASEMGMT ---
Advanced Directive Validation Met with patient in room, and later joined by daughter Mojgan. Patient states to have both a Living Will and POAHC; copies are at home. Patient explained to Mojgan where to find the forms. Mojgan agrees to bring the forms into the hospital for patient's record. Patient reports Mojgan is one of the children listed as the POAHC. -TANIKA Ramon
[2023-03-02] MEDS: Pregabalin 25 MG Capsule PO ×2 (12:36→20:46)
--- NOTE | 2023-03-02 16:00 | EKG12_ITS ---
Test Reason : dizziness Blood Pressure : / mmHG Vent. 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
--- NOTE | 2023-03-02 16:05 | CASEMGMT ---
Met with patient to complete HERNANDEZ form. HERNA[employer]DEZ form explained to (pt/pt?s ___) who voiced understanding and signed form. Original form placed in pt?s chart and copy provided to patient. Katty Melara, Discharge Planning Asst.?
--- NOTE | 2023-03-02 16:10 | PCM.CONS.GEN ---
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 and mild mitral valve prolapse, mild aortic stenosis and a right ventricular systolic pressure of 26 mmHg -Depending on work-up may need to repeat echocardiogram -Check stat CBC DHEERAJ -Continue BiPAP 10 over 6 at night Mitral valve prolapse/aortic valve stenosis -Most recent echocardiogram from 2020 showed an EF of 55% with diastolic dysfunction and no regional wall motion abnormalities, mild biatrial enlargement, 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 and mild mitral valve prolapse, mild aortic stenosis and a right ventricular systolic pressure of 26 mmHg Hypertension -Hold home metoprolol History of SVT -Currently sinus rhythm -Hold home metoprolol for hypotension Urinary incontinence -Continue tolterodine Neuropathy -Continue home Lyrica Anxiety -Continue nocturnal clonazepam History of tobacco abuse -Encouraged ongoing cessation -No documentation of COPD DVT prophylaxis -Per primary service HPI Consult Data Date of Consult: 03/02/23 HPI Narrative Reason for Consultation: Postoperative hypotension HPI Narrative: ZOE CABRALES, is a 82 F who presented to [facility] on 03/01/2023 for an elective right robotic assisted total knee arthroplasty. Patient initially did well postoperatively however this morning when she went to get a bed she had some hypotension which has been persistent. Blood pressures currently 105/53. It looks like she has been low since yesterday postoperatively. She was on her metoprolol so we will hold this for now. The patient complains of some lightheadedness while in upright position, tingling of her lips, hands bilaterally, and feet bilaterally. She does have history of neuropathy but states her tingling is worse than her baseline. She has no focal deficit or focal tingling or numbness. She denies any chest pain or shortness of breath and seems to be mentating well. Has never had anything like this previous sleep. She does have a history of mitral valve prolapse, SVT, aortic valve stenosis and previous bradycardia. [facility] Medical History Ambulates with cane Arthritis Bladder disease Bradycardia Cardiology follow-up encounter CPAP (continuous positive airway pressure) dependence Dietary restriction Fatigue Former smoker Heartburn History of echocardiogram History of edema History of pain when walking History of stress test History of subarachnoid hemorrhage Hypercapnia Loss of consciousness Mild mental slowing MVP (mitral valve prolapse) Neuropathy Non-rheumatic aortic stenosis Osteoarthritis Post-menopausal Restless leg syndrome Supraventricular tachycardia Ventricular ectopy Weakness Wears glasses Home Medications clonazepam 0.5 mg tablet 0.5 mg PO QHS 05/31/17 [History Last Taken Unknown] cholecalciferol (vitamin D3) 25 mcg (1,000 unit) capsule 2,000 unit PO DAILY 10/20/18 [History Last Taken Unknown] multivitamin 1 tab PO DAILY 11/11/20 [History Last Taken Unknown] alpha lipoic acid 600 mg capsule 600 mg PO BID 01/05/23 [History Last Taken Unknown] vitamin B12 1,000 mcg-folic acid 400 mcg sublingual lozenge 10,000 kerry sublingual DAILY 01/05/23 [History Last Taken Unknown] tolterodine 2 mg capsule,extended release 24 hr 2 mg PO DAILY 01/08/23 [History Last Taken 03/01/23] metoprolol succinate 50 mg tablet,extended release 24 hr 50 mg PO DAILY #90 tabs 01/13/23 [Rx Last Taken 03/01/23] pregabalin 25 mg capsule 25 mg PO BID 02/25/23 [History Last Taken 03/01/23] Allergy/AdvReac Type Severity Reaction Status Date / Time No Known Allergies Allergy Verified 01/08/23 13:18 no significant family history Surgical History H/O prior ablation treatment History of radiofrequency ablation procedure for cardiac arrhythmia (~09/24/04) Hx of left cataract extraction Hx of right cataract extraction S/P ORIF (open reduction internal fixation) fracture Social History Smoking Status: Former smoker quit date: 06/21/1964 how long ago did patient quit smokin alcohol intake: never substance use type: does not use caffeine: Yes Type: coffee Number of servings: 2 and tea Number of servings: 1 ROS Constitutional Constitutional: Reports weakness; Denies anorexia, change in weight, chills, fatigue, fever(s), malaise, night sweats or other Eyes Eyes: Denies blurry vision, change in eye color, change in vision, discharge from eye(s), double vision, erythema, eye pain, loss of vision or other ENT HEENT: Denies abnormal hearing, dysphagia, ear pain, epistaxis, headache(s), hearing loss, nasal congestion, nasal discharge, post nasal drip, sinus pressure, sore throat or other Cardiovascular Cardiovascular: Reports lightheadedness; Denies chest pain, claudication, dyspnea on exertion, edema, orthopnea, palpitations, paroxysmal nocturnal dyspnea, rapid heart rate, syncope or other Respiratory/Chest Respiratory/Chest: Denies cough, dyspnea, excessive phlegm production, hemoptysis, productive cough, shortness of breath at rest, shortness of breath with exertion, wheezing or other Gastrointestinal Gastrointestinal: Denies abdominal pain, coffee ground emesis, constipation, diarrhea, dyspepsia, hematemesis, hematochezia, loose stools, melena, nausea, vomiting or other Genitourinary Genitourinary: Denies burning urination, difficulty urinating, dysuria, hematuria, nocturia, urinary frequency, urinary hesitancy, urinary incontinence, urinary urgency or other Musculoskeletal Musculoskeletal: Reports joint pain, joint stiffness and joint swelling; Denies arthralgias, back pain, myalgias, neck pain or other Neurologic Neurologic: Reports paresthesias RUE (Foot), RLE (Foot), LUE (Hands) and LLE (Hand) and other Details: Perioral numbness Psychiatric Psychiatric: Denies anxiety, depression, homicidal ideation, suicidal ideation or other Endocrine Endocrinology: Denies change in body appearance, cold intolerance, excessive sweating, heat intolerance, polydipsia, polyuria or other Hematologic/Lymphatic Hematologic/Lymphatic: Denies anemia, easy bleeding, easy bruising, lymphadenopathy or other Allergic/Immunologic Allergic/Immunologic: Denies rhinitis, hives, eczemia, asthma or other Physical Exam Const alert, oriented x3, no apparent distress, average body habitus and well nourished Constitutional Narrative: Older, white female, sitting up in a chair at the bedside, watching television and sucking on hard candy, appears comfortable and nontoxic HEENT normocephalic, head/scalp atraumatic, hearing grossly normal bilaterally and moist oral mucous membranes HEENT Narrative: Mallampati is 2, no thrush Resp normal respiratory effort, no retractions, no use of accessory muscles and clear to auscultation bilaterally Resp Narrative: Diffusely diminished but clear Auscultation: Negative for rales, rhonchi or wheezes Cardio regular rate, regular rhythm, S1 normal heart sound, S2 normal heart sound, no rub, no gallops and no clicks; Negative for no murmurs Cardio Narrative: 2 out of 6 systolic murmur loudest at right upper sternal GI normal to inspection, nondistended, normoactive bowel sounds, soft to palpation and non-tender Extremity no clubbing, cyanosis or edema Extremity Narrative: GARCIA hose in place with postoperative dressing on right knee Neuro oriented x3, moves all extremities and no focal motor deficits Neuro Narrative: Patient with distal hand bilaterally and foot bilaterally paresthesias/altered Speech: speech normal Psych affect normal Psych Narrative: Slightly anxious Mood & Affect: anxious Radiology Impression Knee X-Ray 03/01/23 12:22 IMPRESSION: 1. Postoperative changes of recent total knee arthroplasty. Normal alignment without fracture or hardware failure. No destructive bony process. 2. Expected postoperative changes in the soft tissues. Electronically Signed: Shoaib Chen MD at 17:13 EDT , Charges/Coding Visit Charges Inpatient E&M: 22957 Init Hosp L2
[2023-03-02 17:11] LABS: Absolute Lymphocyte Count 0.93 X10^3/uL (0.83-4.51); Absolute Neutrophil Count 6.2 X10^3/uL (2.0-7.7); Basophil# 0.04 X10^3/uL; Basophil% 0.5 % (0-1); Eosinophil# 0.02 X10^3/uL; Eosinophils% 0.2 % (0-5); Hemoglobin 10.7 g/dL (12.0-15.0); Lymphocyte # 0.93 X10^3/ul (0.83-4.51); Lymphocyte % 11.4 % (19-41); Mean Corp Hgb Conc 31.5 g/dL (32-36); Mean Corpuscular Hgb 30.7 pg (27.0-32.0); Mean Corpuscular Volume 97.4 fL (81-99); Mean Platelet Vol. 10.9 fl (6.2-12.0); Monocyte# 0.92 X10^3/uL; Monocyte% 11.3 % (0-10); NRBC Flagged by Analyzer 0 % (0-5); Neutrophil # 6.19 X10^3/uL (2.7-7.7); Neutrophil % 76.1 % (47-70); Platelet Count 171 K/mm3 (150-450); RBC Distribution Width CV 12.2 % (11.6-14.6); RBC Distribution Width SD 43.3 fl (35.1-43.9); Red Blood Count 3.49 M/mm3 (4.2-5.4); White Blood Count 8.1 K/mm3 (4.4-11.0)
[2023-03-02] MEDS: clonazePAM 0.5 MG Tablet PO (20:46)
--- NOTE | 2023-03-02 21:46 | CPS ---
Pt refused PAP therapy for the night, wanting to just wear O2.
[2023-03-03 03:00] VITALS: BP 128/60; PULSE 82; RESP 18; TEMP 36.7; O2SAT 98
[2023-03-03] MEDS: Acetaminophen 500 MG Tablet 1000 MG PO ×2 (06:35→13:04)
[2023-03-03 06:36] LABS: Absolute Lymphocyte Count 0.71 X10^3/uL (0.83-4.51); Absolute Neutrophil Count 6.1 X10^3/uL (2.0-7.7); Basophil# 0.03 X10^3/uL; Basophil% 0.4 % (0-1); Eosinophil# 0.07 X10^3/uL; Eosinophils% 0.9 % (0-5); Hematocrit 31.2 % (37-47); Hemoglobin 10.3 g/dL (12.0-15.0); Lymphocyte # 0.71 X10^3/ul (0.83-4.51); Mean Corpuscular Hgb 31.5 pg (27.0-32.0); Mean Corpuscular Volume 95.4 fL (81-99); Mean Platelet Vol. 10.7 fl (6.2-12.0); Monocyte# 0.87 X10^3/uL; Monocyte% 11.1 % (0-10); NRBC Flagged by Analyzer 0 % (0-5); Neutrophil # 6.14 X10^3/uL (2.7-7.7); Platelet Count 153 K/mm3 (150-450); RBC Distribution Width CV 12.1 % (11.6-14.6); RBC Distribution Width SD 42.2 fl (35.1-43.9); Red Blood Count 3.27 M/mm3 (4.2-5.4); White Blood Count 7.9 K/mm3 (4.4-11.0)
[2023-03-03 07:01] LABS: Anion Gap 3 (5-15); BUN 11 mg/dL (7-18); BUN/Creat Ratio 21.4 RATIO (10-20); Calcium,Total 8.2 mg/dL (8.5-10.1); Chloride 107 mmol/L (98-107); Creatinine, Serum 0.51 mg/dL (0.55-1.02); EST Glomerular Filtration Rate 122 mL/min (>60); Est Glom Filt Rate - Afr Amer 147 mL/min (>60); Estimated Creatinine Clearance 39.03 ml/min; Glucose 90 mg/dL (74-106); Sodium Level 138 mmol/L (136-145)
[2023-03-03 07:47] VITALS: BP 128/62; PULSE 91; RESP 18; TEMP 36.6; O2SAT 97
[2023-03-03] MEDS: Vitamin B Comp W-C Capsule 1 CAP PO (07:58)
[2023-03-03] MEDS: Aspirin 81 MG TAB.CHEW PO (07:58)
[2023-03-03] MEDS: Multivitamins,Therapeutic Tablet 1 TABLET PO (07:58)
--- NOTE | 2023-03-03 09:34 | PCM.PN.ORT ---
Subjective Subjective Patient ambulating with walker in therapy. Patient states she is feeling much better. Patient denies chest pain, shortness of breath, calf pain, nausea vomiting, lightheadedness or dizziness. Patient states she feels she is ready for discharge home. Objective Data Objective Data Vital Signs: Vital Signs Temp Pulse Resp BP Pulse Ox O2 Del Method O2 Flow Rate 97.9 F 91 18 128/62 H 97 Nasal Cannula 2 03/03/23 07:47 03/03/23 07:47 03/03/23 07:47 03/03/23 07:47 03/03/23 07:47 03/03/23 09:03 03/03/23 09:03 Oxygen Flow Rate (L/min) 2 Oxygen Delivery Method Nasal Cannula Weight: 61.235 kg Body Mass Index (BMI) 22.4 Intake & Output: Intake and Output for Last 24 Hours 03/01/23 03/02/23 03/03/23 23:59 23:59 23:59 Intake Total 3409.08 / 3409.08 4336.67 / 4336.67 1000 / 1000 Balance 3409.08 / 3409.08 4336.67 / 4336.67 1000 / 1000 Lab / Micro Data 03/03/23 06:00 03/03/23 06:00 Labs: Laboratory Results - last 24 hr 03/02/23 16:39: WBC 8.1, RBC 3.49 L, Hgb 10.7 L, Hct 34.0 L, MCV 97.4, MCH 30.7, MCHC 31.5 L, RDW Std Deviation 43.3, RDW Coeff of Rafa 12.2, Plt Count 171, MPV 10.9, Immature Gran % (Auto) 0.500, Neut % (Auto) 76.1 H, Lymph % (Auto) 11.4 L, [place] % (Auto) 11.3 H, Eos % (Auto) 0.2, Baso % (Auto) 0.5, Absolute Neuts (auto) 6.2, Absolute Lymphs (auto) 0.93, Nucleated RBC % 0 03/03/23 06:00: WBC 7.9, RBC 3.27 L, Hgb 10.3 L, Hct 31.2 L, MCV 95.4, MCH 31.5, MCHC 33.0, RDW Std Deviation 42.2, RDW Coeff of Rafa 12.1, Plt Count 153, MPV 10.7, Immature Gran % (Auto) 0.600, Neut % (Auto) 78.0 H, Lymph % (Auto) 9.0 L, [place] % (Auto) 11.1 H, Eos % (Auto) 0.9, Baso % (Auto) 0.4, Absolute Neuts (auto) 6.1, Absolute Lymphs (auto) 0.71 L, Nucleated RBC % 0, Sodium 138, Potassium 4.0, Chloride 107, Carbon Dioxide 28.0, Anion Gap 3 L, BUN 11, Creatinine 0.51 L, Estim Creat Clear Calc 39.03, Est GFR (MDRD) Af Amer 147, Est GFR (MDRD) Non-Af 122, BUN/Creatinine Ratio 21.4 H, Glucose 90, Calcium 8.2 L Micro: Microbiology 02/23/23 09:32 Swab (Method) Nasal Screen MRSA/MSSA - Final 01/14/23 16:50 Swab (Method) Nasal Screen MRSA/MSSA - Final Physical Exam Narrative Patient ambulating with good steady gait with walker. Patient in no respiratory distress speaking full sentences. Neurovascular appears to be intact. Review of labs show patient's blood pressure has stabilized. Orthostatic vitals were within normal limits. Const alert and oriented x3 General Appearance: cooperative HEENT normocephalic Eyes PERRL Resp Effort and Inspection: able to speak in complete sentences and uses accessory muscles Psych mental status grossly normal and affect normal Assessment & Plan Assessment/Plan (1) Lightheadedness: PLAN: 1. Continue good oral intake 2. Resume blood pressure medications tomorrow 3. Follow-up with family physician 1 week (2) Postoperative hypotension: PLAN: 1. Continue good oral intake 2. Resume blood pressure medication tomorrow 3. Follow-up with family physician 1 week (3) Status post total right knee replacement using cement: PLAN: 1. Continue all pain medications as prescribed 2. Aspirin 81 mg 1 p.o. every 12 hours x30 days for postop DVT prophylaxis 3. Continue ambulation with walker 4. Continue physical therapy outpatient at [facility] [place] 5. Shower tomorrow 6. Follow-up as scheduled 7. GARCIA hose on during the day off at night 8. Follow-up as scheduled
[2023-03-03] MEDS: Cholecalciferol (VIT D3) 25 MCG TABLET (1,000 UNITS) 50 MCG PO (10:20)
[2023-03-03] MEDS: Pregabalin 25 MG Capsule PO (10:20)
[2023-03-03] MEDS: Tolterodine Tartrate 2 MG CAP.SA PO (10:20)
--- NOTE | 2023-03-03 11:33 | PN.HOSP_ITS ---
Reason for Visit Reason for Visit: Hypotension Subjective Subjective Patient states she is overall feeling much better today. All of the symptoms she was experiencing yesterday have resolved and she is anxious to go home. Objective Data Objective Data Vital Signs: Vital Signs Temp Pulse Resp BP Pulse Ox O2 Del Method O2 Flow Rate 97.9 F 91 18 128/62 H 97 Nasal Cannula 2 03/03/23 07:47 03/03/23 07:47 03/03/23 07:47 03/03/23 07:47 03/03/23 07:47 03/03/23 09:03 03/03/23 09:03 Oxygen Flow Rate (L/min) 2 Oxygen Delivery Method Nasal Cannula Weight: 61.235 kg Body Mass Index (BMI) 22.4 Intake & Output: Intake and Output for Last 24 Hours 03/01/23 03/02/23 03/03/23 23:59 23:59 23:59 Intake Total 3409.08 / 3409.08 4336.67 / 4336.67 1000 / 1000 Balance 3409.08 / 3409.08 4336.67 / 4336.67 1000 / 1000 Lab / Micro Data 03/03/23 06:00 03/03/23 06:00 Labs: Laboratory Results - last 24 hr 03/02/23 16:39: WBC 8.1, RBC 3.49 L, Hgb 10.7 L, Hct 34.0 L, MCV 97.4, MCH 30.7, MCHC 31.5 L, RDW Std Deviation 43.3, RDW Coeff of Rafa 12.2, Plt Count 171, MPV 10.9, Immature Gran % (Auto) 0.500, Neut % (Auto) 76.1 H, Lymph % (Auto) 11.4 L, [place] % (Auto) 11.3 H, Eos % (Auto) 0.2, Baso % (Auto) 0.5, Absolute Neuts (auto) 6.2, Absolute Lymphs (auto) 0.93, Nucleated RBC % 0 03/03/23 06:00: WBC 7.9, RBC 3.27 L, Hgb 10.3 L, Hct 31.2 L, MCV 95.4, MCH 31.5, MCHC 33.0, RDW Std Deviation 42.2, RDW Coeff of Rafa 12.1, Plt Count 153, MPV 10.7, Immature Gran % (Auto) 0.600, Neut % (Auto) 78.0 H, Lymph % (Auto) 9.0 L, [place] % (Auto) 11.1 H, Eos % (Auto) 0.9, Baso % (Auto) 0.4, Absolute Neuts (auto) 6.1, Absolute Lymphs (auto) 0.71 L, Nucleated RBC % 0, Sodium 138, Potassium 4.0, Chloride 107, Carbon Dioxide 28.0, Anion Gap 3 L, BUN 11, Creatinine 0.51 L , Estim Creat Clear Calc 39.03, Est GFR (MDRD) Af Amer 147, Est GFR (MDRD) Non- Af 122, BUN/Creatinine Ratio 21.4 H, Glucose 90, Calcium 8.2 L Micro: Microbiology 02/23/23 09:32 Swab (Method) Nasal Screen MRSA/MSSA - Final 01/14/23 16:50 Swab (Method) Nasal Screen MRSA/MSSA - Final Physical Exam Const alert, oriented x3 and no apparent distress Constitutional Narrative: Thin, elderly, white female working with occupational and physical therapy in the therapy room. Appears comfortable and nontoxic HEENT head/scalp atraumatic, moist oral mucous membranes and oropharynx normal Resp normal respiratory effort, no retractions, no use of accessory muscles and clear to auscultation bilaterally Auscultation: Negative for rales, rhonchi or wheezes Cardio regular rate, regular rhythm, S1 normal heart sound, S2 normal heart sound, no murmurs, no rub, no gallops and no clicks Neuro oriented x3, moves all extremities and no focal motor deficits Psych affect normal Psych Narrative: Very pleasant interacts appropriately Assessment & Plan Assessment/Plan (1) Postoperative hypotension: (2) Lightheadedness: PLAN: Plan Lightheadedness/postoperative hypotension -Orthostatics were negative -Blood pressure is much improved -Patient now asymptomatic -Etiology is unclear however could be related to medications -Would hold metoprolol for another 24 hours and restart tomorrow DHEERAJ -Continue BiPAP 10 over 6 at night Mitral valve prolapse/aortic valve stenosis -Most recent echocardiogram from 2020 showed an EF of 55% with diastolic dysfunction and no regional wall motion abnormalities, mild biatrial enlargement, 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 Discharge planning per primary service. Charges/Coding Visit Charges Inpatient E&M: 23133 Subs Hosp L1
[2023-03-03 12:46] VITALS: BP 111/55; PULSE 95; RESP 18; TEMP 36.9; O2SAT 97
== END 2023-03-03 14:42 | disposition home health service (06) ==
LOC: SDC 15:34 → MS3 15:34
PROVIDERS: Anesthesiology; Internal Medicine; Admitting Provider Orthopaedic Surgery; PCP Family Medicine; Referring Provider Orthopaedic Surgery; Visit Provider Orthopaedic Surgery
PROC: 0SRC0JZ Replacement of Right Knee Joint with Synthetic Substitute, Open Approach (ICD-10-PCS; CPT 27447; principal; 2023-03-01 09:15)
DX: M17.11 Unilateral primary osteoarthritis, right knee (principal); I47.1 Supraventricular tachycardia; Z87.891 Personal history of nicotine dependence; R42 Dizziness and giddiness; I95.81 Postprocedural hypotension; G47.33 Obstructive sleep apnea (adult) (pediatric); I10 Essential (primary) hypertension; R32 Unspecified urinary incontinence; G62.9 Polyneuropathy, unspecified; F41.9 Anxiety disorder, unspecified; Z79.899 Other long term (current) drug therapy; R53.83 Other fatigue
CPT/HCPCS: 27447; S2900; 01402; 64447; 36415; 73560; 80048; 82962; 83036; 83735; 85025; 87081; 88305; 88311; 93005; 94668; 96360; 96361; 97110; 97116; 97162; 97166; 97530; 97535; 99221; 99252; C1776; J7030; J7120; G0378; G0463; J2405; J3475

== ENCOUNTER → 2023-03-12 | Outpatient (CLI) | payer MEDICARE, SELFPAY ==
--- NOTE | 2023-03-12 15:25 | VDLE_ITS ---
Reason For Study: RLE Pain RIGHT LEFT GSV is normal. CFV is compressible, spontaneous, phasic, CFV is compressible, spontaneous, phasic, competent, and demonstrates normal competent and demonstrates normal augmentation. augmentation. FV is compressible, spontaneous, phasic, competent and demonstrates normal augmentation. POP V is compressible, spontaneous, phasic, competent and demonstrates normal augmentation. T/P Trunk is compressible. PTV is compressible. RT PerV is compressible. Procedure This is a venous duplex using B-mode, color flow and spectral Doppler. Exam performed in department. The exam was diagnostic. A preliminary report was called and/or faxed to [employer]. VL/Venous Duplex US, Unilateral Interpretation Summary Deep veins of the right lower extremity are patent and compressible segmentally . There is no evidence of right lower extremity deep vein thrombosis. The right great saphen[place] us vein appears patent and compressible segmentally. Ordering Physician: Sharon Funes Referring Physician: Christiano Diehl Performed By: Diony Pratt RVT
== END | disposition home or self-care (01) ==
LOC: CVS 15:23
PROVIDERS: PCP Family Medicine; Referring Provider Physician Assistant Surgical; Visit Provider Physician Assistant Surgical
DX: M79.604 Pain in right leg (principal)
CPT/HCPCS: 93971

== ENCOUNTER 2023-08-18 07:55 | Day surgery (SDC) | payer MEDICARE, SELFPAY ==
[2023-08-18 08:15] VITALS: BP 134/76; PULSE 65; RESP 16; TEMP 36.4; O2SAT 98; BMI 21.6
--- OUTSIDE RECORDS SUMMARY | 2023-08-18 08:17 | XMS RPT_ITS | CCD ---
Author Name Unknown Address [address] [place] [address] Organization [facility] Care Team Providers Care Material Expeditor Name Role Phone Kassandra Otto Unavailable Unavailable Kassandra Otto Unavailable Unavailable Kassandra Gavrey Unavailable Unavailable Kassandra Otto Unavailable Unavailable Kassandra Garvey Unavailable Unavailable Kassandra Otto Unavailable Unavailable NGOC ISEGEL JR Unavailable Unavailable SANTHOSH, LALY E Unavailable Unavailable SANTHOSH LALY E Unavailable Unavailable NGOC SIEGEL JR Unavailable Unavailable CATHERINE JEFFRIES Unavailable Unavailable NGOC SIEGEL JR Unavailable Unavailable SANTHOSH LALY E Unavailable Unavailable KASSANDRA GARVEY Unavailable Unavailable SANTHOSH, LALY E Unavailable Unavailable SANTHOSH, LALY E Unavailable Unavailable SANTHOSH, LALY E Unavailable Unavailable ShanitaCatherine carrillo DO Primary Care Provider Benji Leblanc Unavailable MAE LANIER II Attending Unavailabl e SELF Referring Unavailable CATHERINE JEFFRIES Primary Care Unavailable Medications Current Medications Medication Drug Class(es) Dates Sig (Normalized) Sig (Original) phenylephrine hydrochloride 25 mg/ml ophthalmic solution (1 source) alpha-1 Adrenergic Agonist Start: 12-17-2022 End: 12-17-2022 PHENYLephrine 2.5 % 1 Drop (AK-DILATE, JEANCARLOS-SYNEPHRINE) tropicamide 10 mg/ml ophthalmic solution (1 source) Anticholinergic Start: 12-17-2022 End: 12-17-2022 tropicamide 1 % 1 Drop (MYDRIACYL) Completed/Discontinued Medications Medication Drug Class(es) Dates Sig (Normalized) Sig (Original) ALPHA LIPOIC ACID ORAL (1 source) ALPHA LIPOIC ACI D ORAL Take 600 mg by mouth. 0 Active Problems Active Problems Problem Classification Problem Date Documented Date Episodic/Chronic Blindness and vision defects (3 sources) Bilateral regular astigmatism; Translations: [Regular astigmatism, bilateral] Episodic Cardiac dysrhythmias (4 sources) Supraventricular tachycardia; Translations: [Cardiac arrhythmia, unspecified] Onset: 05-18-2017 04-29-2018 Chronic Cataract (2 sources) After-cataract of bilateral eyes; Translations: [Other secondary cataract, bilateral] Chronic Malaise and fatigue (2 sources) Other malaise; Translations: [Other fatigue] Onset: 03-21-2018 Episodic Other hereditary and degenerative nervous system conditions (2 sources) Restless legs syndrome; Translations: [Restless legs syndrome] Onset: 03-22-2017 Chronic Other nervous system disorders (1 source) Anesthesia of skin; Translations: [Anesthesia of skin] Onset: 03-21-2018 Episodic Unclassified (2 sources) Other hypersomnia; Translations: [Obstructive sleep apnea (adult) (pediatric)] Onset: 03-22-2017 Chronic Past or Other Problems Problem Classification Problem Date Documented Date Episodic/Chronic Other lower respiratory disease (1 source) Snoring; Translations: [Snoring] Onset: 03-22-2017 Episodic Other lower respiratory disease (1 source) Other forms of dyspnea; Translations: [Other forms of dyspnea] Onset: 05-18-2017 Episodic Unclassified (1 source) Insomnia, unspecified; Translations: [Insomnia, unspecified] Onset: 03-22-2017 Episodic Unclassified (1 source) Abnormal electrocardiogram [ECG] [EKG]; Translations: [Abnormal electrocardiogram (ECG) (EKG)] Onset: 05-10-2017 Episodic Results Test Name Value Interpretation Reference Range Facil ity Encounters Encounter Date Encounter Type Care Provider Facility Start: 12-17-2022 End: 12-17-2022 ambulatory MAE LANIER II Facility:[facility] Start: 12-17-2022 End: 12-17-2022 Patient encounter procedure Mae Lanier OD Work Phone: Optometry Plan of Treatment Date Care Activity Detail Author Start: 02-19-2023 Influenza vaccination INFLUENZA (Sea son Ended) [facility] Start: 06-21-2022 ADVANCE DIRECTIVE DISCUSSION ADVANCE DIRECTIVE DISCUSSION [facility] Start: 06-21-2022 DEPRESSION ASSESSMENT DEPRESSION ASS ESSMENT [facility] Start: 05-24-2020 DIABETES SCREEN DIABETES SCREEN [facility] Start: 2005 BONE DENSITY BONE DENSITY [facility] Start: 2005 PNEUMOCOCCAL: 65+ (1 - PCV) PNEUMOCOCCAL: 65+ (1 - PCV) [facility] Start: 1990 SHINGRIX VACCINE (1 of 2) COREA GRIX VACCINE (1 of 2) [facility] Start: 1959 Urine microalbumin profile DTAP,TDAP ,TD (1 - Tdap) [facility] Start: 01-03-1941 COVID-19 VACCINE (#1) COVID-19 VACCI NE (#1) [facility] Payers Date Payer Category Payer Unknown [employer] [id number] 06/21/2022-Present [address] [place] [address] Indemnity [id number] 06-21-2021 Medicare [id number] 09-27-2017 Private Health Insurance Social History Date Type Detail Facility Start: 12-17-2022 Tobacco smoking stat [facility] Ex-smoker [facility] History of tobacco use Current smoker [facility] Start: 12-17-2022 Tobacco use and exposure Smoke less tobacco non-user [facility] Start: 12-17-2022 Alcohol intake Current non-dr rn documentation of alcohol (finding) [facility] Start: 1940 Sex Assigned At Not on file [facility] Progress note 12-17-2022 Note Date & Type Note Facility 12-17-2022 Note HNO ID: [id number] Author: Mae Lanier II, OD Service: ? Author Type: FLOW MANAGER Type: Progress Notes Filed: 12/17/2022 11:51 AM Note Text: Assessment and Plan H52.223 Regular astigmatism, bilateral (primary encounter diagnosis) H52.01 Hyperopia, right H52.4 Presbyopia Comment: Recommend glasses to maximize visual performance at distance and near. H26.493 PCO (posterior capsular opacification), bilateral Comment: Trace L>R. Monitor for progression yearly. Z96.1 Pseudophakia of both eyes Comment: Posterior chamber intraocular lenses are well positioned. I have confirmed and edited as necessary the relevant ophthalmic history, ROS, and the neuro exam findings as obtained by others. I have seen and examined Zoe Cabrales. I have discussed the case and the management of this patient's care with the Resident/Fellow, if applicable. I also have reviewed and agree with the assessment and plan as stated above and agree with all of its relevant components. Mae [facility] II, OD [facility] 12-17-2022 Patient Instructions Note Date & Type Note Facility 12-17-2022 Instructions Mae Lanier II, OD - 12/17/2022 11:51 AM EDT Assessment and Plan H52.223 Regular astigmatism, bilateral (primary encounter diagnosis) H52.01 Hyperopia, right H52.4 Presbyopia Comment: Recommend glasses to maximize visual performance at distance and near. H26.493 PCO (posterior capsular opacification), bilateral Comment: Trace L>R. Monitor for progression yearly. Z96.1 Pseudophakia of both eyes Comment: Posterior chamber intraocular lenses are well positioned. I have confirmed and edited as necessary the relevant ophthalmic history, ROS, and the neuro exam findings as obtained by others. I have seen and examined Zoe Cabrales. I have discussed the case and the management of this patient's care with the Resident/Fellow, if applicable. I also have reviewed and agree with the assessment and plan as stated above and agree with all of its relevant components. Mae Lanier II, OD documented in this encounter [facility] History of Present illness Narrative 12-17-2022 Mae Lanier II, OD - 12/17/2022 11:50 AM EDT Note Date & Type Note Facility 12-17-2022 History of Presen t illness Narrative Assessment and Plan H52.223 Regular astigmatism, bilateral (primary encounter diagnosis) H52.01 Hyperopia, right H52.4 Presbyopia Comment: Recommend glasses to maximize visual performance at distance and near. H26.493 PCO (posterior capsular opacification), bilateral Comment: Trace L>R. Monitor for progression yearly. Z96.1 Pseudophakia of both eyes Comment: Posterior chamber intraocular lenses are well positioned. I have confirmed and edited as necessary the relevant ophthalmic history, ROS, and the neuro exam findings as obtained by others. I have seen and examined Zoe Cabrales. I have discussed the case and the management of this patient's care with the Resident/Fellow, if applicable. I also have reviewed and agree with the assessment and plan as stated above and agree with all of its relevant components. Mae Lanier II, OD documented in this encounter [facility] Evaluation note Note Date & Type Note Facility documented in this encounter [facility] Summary Purpose Family History No Family History Records FoundNo Family History Records FoundNo Family History Records FoundNo Family History Records Found Advance Directives No Advanced Directives Records FoundNo Advanced Directives Records FoundNo Advanced Directives Records FoundNo Advanced Directives Records Found Medications Administered Section Active Administered Medications - up to 3 most recent administrations Medication Order MAR Action Action Date Dose Rate Site PHENYLephrine 2.5 % 1 Drop (AK-DILATE, JEANCARLOS-SYNEPHRINE) 1 Drop, BOTH EYES, DIRECTED, Starting on Flory 12/17/22 at 1200, Until Flory 12/17/22 at 2359, Administer for dilation PROTECT FROM LIGHT Given 12/17/2022 12:00 PM EDT 1 Drop tropicamide 1 % 1 Drop (MYDRIACYL) 1 Drop, BOTH EYES, DIRECTED, Starting on Folry 12/17/22 at 1200, Until Flory 12/17/22 at 2359, Administer for dilation Given 12/17/2022 12:00 PM EDT 1 Drop Additional Source Comments INFORMATION SOURCE (unrecogn ized section and content) DATE CREATED AUTHOR AUTHOR'S ORGANIZ ATION 12/15/2017 [facility] DATE CREATED AUTHOR AUTHOR'S ORGANIZ ATION 04/25/2018 [facility] DATE CREATED AUTHOR AUTHOR'S ORGANIZ ATION 12/18/2022 [facility] Source Comments (unrecognize d section and content) In the event this informatio n is protected by the Federal Confidentiality of Alcohol and Drug Abuse Patient Records regulations: The Federal rules restrict any use of the information to criminally investigate or prosecute any alcohol or drug abuse patient.[facility] Reason for Visit (unrecogniz ed section and content) Care Teams (unrecognized sec tion and content) FOR RECORDS PERTAINING TO PATIENTS WHO ARE OR HAVE BEEN ENROLLED IN A CHEMICAL DEPENDENCY/SUBSTANCEABUSE PROGRAM, SOME INFORMATION MAY BE OMITTED. This clinical summary was aggregated from multiple sources. Caution should be exercised in using it in the provision of clinical care. This summary normalizes information from multiple sources, and as a consequence, information in this document may materially change the coding, format and clinical context of patient data. In addition, data may be omitted in some cases. CLINICAL DECISIONS SHOULD BE BASED ON THE PRIMARY CLINICAL RECORDS. [facility]. provides no warranty or guarantee of the accuracy or completeness of information in this document.
[2023-08-18] MEDS: Lactated Ringers 1,000 ML 15 ML IV (08:31)
--- NOTE | 2023-08-18 08:47 | HP.PCM_ITS ---
HPI - General General Date of Service: 08/18/23 HPI Narrative ZOE CABRALES, is a 83 F who presents for a colonoscopy due to history of colon polyps in 2018 she had some sessile serrated adenomas. Patient had a 2- day prep however she did forget eat some the first day but she did take the entire prep. Patient states she had clear stools but did have a very small formed stool less than 16th of an inch -as her last bowel movement. Patient denies any changes since last office visit. office visit 07/14/23 HPI HPI: 83-year-old female presents for colonoscopy due to history of colon polyps. Patient's last colonoscopy was in 2018 patient had 5 polyps at that time couple were sessile serrated adenomas. Patient states she has bowel movements daily. Patient states that she is currently eats a gluten/dairy free diet and has noticed that if she does eat beans she will have some explosive diarrhea that she has been avoiding that. Otherwise patient states she is has formed bowel movements. Patient denies any nausea/vomiting/abdominal pain. Patient denies any family history for colon cancer [facility] Medical History Ambulates with cane Arthritis Bladder disease Bradycardia Cardiology follow-up encounter CPAP (continuous positive airway pressure) dependence Dietary restriction Fatigue Former smoker Heartburn History of echocardiogram History of edema History of pain when walking History of stress test History of subarachnoid hemorrhage Hx of colonic polyps Hypercapnia Loss of consciousness Mild mental slowing MVP (mitral valve prolapse) Neuropathy Non-rheumatic aortic stenosis Osteoarthritis Post-menopausal Restless leg syndrome Supraventricular tachycardia Ventricular ectopy Weakness Wears glasses Home Medications clonazepam 0.5 mg tablet 0.5 mg PO QHS 05/31/17 [History Last Taken Unknown] multivitamin 1 tab PO DAILY 11/11/20 [History Last Taken Unknown] tolterodine 2 mg capsule,extended release 24 hr 2 mg PO DAILY 01/08/23 [History Last Taken 03/01/23] metoprolol succinate 50 mg tablet,extended release 24 hr 50 mg PO DAILY #90 tabs 01/13/23 [Rx Last Taken 08/18/23 06:00] pregabalin 25 mg capsule 25 mg PO BID 07/28/23 [History Last Taken Unknown] peg 3350-electrolytes 236 gram-22.74 gram-6.74 gram-5.86 gram solution 4,000 ml PO ONCE #4,000 mL 08/04/23 [Rx Last Taken Unknown] Allergy/AdvReac Type Severity Reaction Status Date / Time No Known Allergies Allergy Verified 08/18/23 08:14 Surgical History H/O prior ablation treatment History of radiofrequency ablation procedure for cardiac arrhythmia (~09/24/04) History of total left knee replacement (TKR) Hx of left cataract extraction Hx of right cataract extraction S/P ORIF (open reduction internal fixation) fracture Social History (Updated 07/14/23 @ 13:08 by Shagufta Rucker) Smoking Status: Former smoker quit date: 06/21/1964 how long ago did patient quit smokin alcohol intake: never substance use type: does not use caffeine: No Past Medical/Surgical History Planned Operation Planned Operative Procedure/s: COLONOSCOPY Previous Hospitalizations/Surgeries HX Hospitalizations: No Any Problems With Anesthesia: No You/Your Family Experience Fever (Hyperthermia) With Anes: No Cholinesterase deficiency: No Cardiovascular Hx Hypertension: No Respiratory Hx Sleep Apnea: Yes CPAP: Yes BIPAP: No Hx Respiratory Tract Infection/Cold (presently): No Result (for STOP score): Positive Smoking Status: Former smoker Neurological Hx Back Injury/Pain: Yes Does patient have nerve stimulator: No Musculoskeletal Hx Arthritis: Yes Miscellaneous Recent Exposure to Contagious Disease: No Allergies No Known Allergies Allergy (Verified 08/18/23 08:14) Discharge Is Pt Admitted From a Long-Term, or a Half-Way: No After D/C, Where Do you Plan to Go: Return Home From the [facility] History Number of Risk Factors: 1 Vital Signs Vital Signs Vital Signs: 08/18/23 08:15 08/18/23 08:15 Temperature 97.6 F L Temperature Source Temporal Pulse Rate 65 Respiratory Rate 16 Respiratory Pattern Normal Blood Pressure 134/76 H Blood Pressure Mean 95 Blood Pressure Source Manual Blood Pressure Position Semi-Fowlers Blood Pressure Location Left Arm Pulse Ox 98 Oxygen Delivery Method Room Air Weight Weight: 134 lb Body Mass Index (BMI) 21.6 Physical Exam Const alert, oriented x3 and no apparent distress HEENT normocephalic and head/scalp atraumatic Resp normal respiratory effort Cardio regular rate GI soft to palpation and non-tender; Negative for non-distended Palpation: Negative for guarding Extremity no clubbing, cyanosis or edema Skin no rashes or lesions noted Neuro CN's II-XII intact bilaterally Psych mental status grossly normal Assessment & Plan Assessment/Plan (1) Encounter for colonoscopy due to history of colonic polyp: Surgery Risks - Colonoscopy I discussed with the patient the risks of the procedure: Yes Risks Include but are not Limited To: Risks include but are not limited to: Bleeding, perforation requiring further surgery, inability to complete colonoscopy requiring barium enema.
--- NOTE | 2023-08-18 09:30 | COLBX_PTH ---
PATHOLOGY RESULTS PATIENT: ZOE CABRALES LOC: EN U#:[id number] AGE/SX: 83/F ROOM: RE08/18/[address]: Dr. Nissa Cook MD : 1940 BED: DIS: 08/18/2023 SPEC #: [id number] RECD: 08/18/23 12:56 STATUS: BLESSING JESSICA #: [id number] OSWALDO: 08/18/23 09:[address]: Nissa Cook DEPT: SURGICAL PATHOLOGY RECD BY: Marilyn Verma ENTERED: 08/18/23 12:57 SP TYPE: COLON BX OTHR DR: Dr. Christiano Diehl DO Tissues: COLON BIOPSY Sigmoid colon biopsy Rectum, NOS Procedures: Surgery Specimen Level IV HEADER OPERATION: Colonoscopy with biopsy PRE-OP DIAGNOSIS: History of colon polyp TISSUE SUBMITTED: A - Hepatic flexure biopsy, B - Sigmoid polyp biopsy, C - Rectum polyp biopsy. MICROSCOPIC DIAGNOSIS A. Hepatic flexure polyp, biopsy: Fragments of hyperplastic polyp. B. Sigmoid polyp, biopsy: Fragments of hyperplastic polyp. C. Rectum polyp, biopsy: Fragments of hyperplastic polyp. SUDHEER:cata 08/19/2023 MICROSCOPIC DESCRIPTION Slides are reviewed. GROSS DESCRIPTION A - Received in fixative is one container labeled with the patient's name and designated hepatic flexure polyp biopsy. The specimen consists of two irregular fragments of light henry soft tissue that in aggregate measure 0.4 x 0.2 x 0.1 cm. The specimen is totally submitted in one cassette. B - Received in fixative is one container labeled with the patient's name and designated sigmoid polyp biopsy. The specimen consists of multiple irregular fragments of light henry soft tissue that in aggregate measure 1.2 x 0.5 x 0.1 cm. The specimen is totally submitted in one cassette. C - Received in fixative is one container labeled with the patient's name and designated rectal polyp biopsy. The specimen consists of multiple irregular fragments of light henry soft tissue that in aggregate measure 1.0 x 0.3 x 0.1 cm. The specimen is totally submitted in one cassette. / SUDHEER:cata 08/18/2023 TC:1 CPT: 81878 x3
[2023-08-18 09:51] VITALS: BP 134/76; BP 99/54; PULSE 56; RESP 16; TEMP 36.4; O2SAT 98
--- NOTE | 2023-08-18 09:53 | OP.COLON_ITS ---
Patient Name: Rosenda Browne Procedure Date: 08/18/2023 8:55 AM Date of : 1940 Age: 83 Procedure: Colonoscopy Indications: High risk colon cancer surveillance: Personal history of sessile serrated colon polyp (less than 10 mm in size) with no dysplasia Providers: Nissa Cook MD Referring MD: Nissa Cook MD Medicines: Monitored Anesthesia Care Patient Profile: This is an 83 year old female. Last Colonoscopy: 2017. Complications: No immediate complications. Procedure: Pre-Anesthesia Assessment: - Prior to the procedure, a History and Physical was performed, and patient medications and allergies were reviewed. The patient's tolerance of previous anesthesia was also reviewed. The risks and benefits of the procedure and the sedation options and risks were discussed with the patient. All questions were answered, and informed consent was obtained. Prior Anticoagulants: The patient has taken no anticoagulant or antiplatelet agents. ASA Grade Assessment: Per anesthesia. After reviewing the risks and benefits, the patient was deemed in satisfactory condition to undergo the procedure. After I obtained informed consent, the scope was passed under direct vision. Throughout the procedure, the patient's blood pressure, pulse, and oxygen saturations were monitored continuously. The pediatric colonoscope was introduced through the anus and advanced to the cecum, identified by the appendiceal orifice, ileocecal valve and palpation. The colonoscopy was technically difficult and complex due to a tortuous colon. The patient tolerated the procedure well. The quality of the bowel preparation was good. Scope In: 9:04:48 AM Scope Withdrawal Time 0 hours 14 minutes 44 seconds Scope Out: 9:43:49 AM Total Procedure Duration Time 0 hours 39 minutes 1 second Findings: The perianal and digital rectal examinations were normal. Nine sessile polyps were found in the rectum, sigmoid colon and hepatic flexure. The polyps were less than 5 mm in size. These polyps were removed with a cold biopsy forceps. Resection and retrieval were complete. The exam was otherwise without abnormality on direct and retroflexion views. Impression: - Nine less than 5 mm polyps in the rectum, in the sigmoid colon and at the hepatic flexure, removed with a cold biopsy forceps. Resected and retrieved. - The examination was otherwise normal on direct and retroflexion views. Recommendation: - Discharge patient to home. - Resume previous diet. - Continue present medications. - Await pathology results. - Repeat colonoscopy in 5 years for surveillance based on clinical status at that time. Procedure Code(s): --- Professional --- 39059, PT, Colonoscopy, flexible; with biopsy, single or multiple Diagnosis Code(s): --- Professional --- Z86.010, Personal history of colonic polyps D12.8, Benign neoplasm of rectum D12.5, Benign neoplasm of sigmoid colon D12.3, Benign neoplasm of transverse colon (hepatic flexure or splenic flexure) CPT copyright 2021 [employer]. All rights reserved. The codes documented in this report are preliminary and upon php magento developer review may be revised to meet current compliance requirements. MD Nissa Koo MD 08/18/2023 9:52:32 AM This report has been signed electronically. Number of Addenda: 0 Note Initiated On: 08/18/2023 8:55 AM
--- NOTE | 2023-08-18 09:53 | OP.CCLET_ITS ---
08/18/2023 Christiano Diehl [address] [place] [address] Re : Colonoscopy procedure for Rosenda Browne Dear Dr. Diehl This procedure was performed on Friday, August 18, 2023. My impressions and recommendations are as follows: Impressions : - Nine less than 5 mm polyps in the rectum, in the sigmoid colon and at the hepatic flexure, removed with a cold biopsy forceps. Resected and retrieved. - The examination was otherwise normal on direct and retroflexion views. Recommendations : - Discharge patient to home. - Resume previous diet. - Continue present medications. - Await pathology results. - Repeat colonoscopy in 5 years for surveillance based on clinical status at that time. My findings are described in the full procedure note, which is enclosed. If I can be of further assistance, please feel free to contact me at Doctor phone number(s): , Work: . Sincerely, MD Nissa Koo MD 08/18/2023 9:52:32 AM This report has been signed electronically.
[2023-08-18 09:55] VITALS: BP 134/76; BP 97/47; PULSE 59; RESP 16; O2SAT 96
[2023-08-18 10:00] VITALS: BP 134/76; BP 94/52; PULSE 57; RESP 16; O2SAT 95
[2023-08-18 10:04] VITALS: BP 134/76; BP 95/44; PULSE 57; RESP 16; TEMP 35.8; O2SAT 97
== END 2023-08-18 10:58 | disposition home or self-care (01) ==
LOC: EN 07:57 → AC 07:58
PROVIDERS: PCP Family Medicine; Referring Provider Surgery; Visit Provider Surgery
PROC: 0DJD8ZZ Inspection of Lower Intestinal Tract, Via Natural or Artificial Opening Endoscopic (ICD-10-PCS; CPT 45378; principal; 2023-08-18 09:25)
DX: Z12.11 Encounter for screening for malignant neoplasm of colon (principal); Z87.891 Personal history of nicotine dependence; Z86.010 Personal history of colon polyps; Z90.49 Acquired absence of other specified parts of digestive tract; D12.8 Benign neoplasm of rectum; D12.5 Benign neoplasm of sigmoid colon; D12.3 Benign neoplasm of transverse colon
CPT/HCPCS: 45380; 88305; J7120; J2405

== ENCOUNTER → 2023-08-31 | Outpatient (CLI) | payer MEDICARE, SELFPAY ==
--- NOTE | 2023-08-31 13:00 | RAD_ITS ---
STUDY: X-RAY - UNILATERAL RIBS ( RIGHT ) WITH CHEST REASON FOR EXAM: Female, 83 years old. Right lower rib pain after fall. TECHNIQUE - RIBS: 4 view(s) of the ribs. TECHNIQUE - CHEST: Single frontal view of the chest. COMPARISON: None. FINDINGS - RIBS: Diffuse osteopenia. No displaced rib fractures identified. FINDINGS - CHEST: Hyperinflation. There is no demonstrated pleural abnormality. Cardiomegaly. Normal mediastinum and sacha. Normal visualized pulmonary arteries. Aortic tortuosity with calcification. 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 Mild arthrosis of the left glenohumeral joint. No abnormality of the visualized soft tissue structures of the upper abdomen. RAD/Ribs Uni Min 3V w/PA Chest IMPRESSION: RIBS: Osteopenia with no displaced rib fracture identified. CHEST: Cardiomegaly with hyperinflation. 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 Electronically Signed: Raymond Hays MD at 10:28 EDT ,
--- OUTSIDE RECORDS SUMMARY | 2023-09-01 02:13 | XMS RPT_ITS | CCD ---
Author Name Unknown Address [address] [place] [address] Organization [facility] Care Team Providers Care Marzipan Molder Name Role Phone Kassandra Otto Unavailable Unavailable Kassandra Otto Unavailable Unavailable TomKassandra owen Unavailable Unavailable Kassandra Otto Unavailable Unavailable Kassandra Garvey Unavailable Unavailable Kassandra Otto Unavailable Unavailable NGOC SIEGEL JR Unavailable Unavailable SANTHOSH, LALY E Unavailable Unavailable SANTHOSH LALY E Unavailable Unavailable NGOC SIEGEL JR Unavailable Unavailable CATHERINE JEFFRIES Unavailable Unavailable NGOC SIEGEL JR Unavailable Unavailable SANTHOSH LALY E Unavailable Unavailable KASSANDRA GARVEY Unavailable Unavailable SANTHOSH, LALY E Unavailable Unavailable SANTHOSH, LALY E Unavailable Unavailable SANTHOSH, LALY E Unavailable Unavailable ShanitaCatherine carrillo DO Primary Care Provider Benji Leblacn Unavailable MAE LANIER II Attending Unavailabl e [...] 12-17-2022 End: 12-17-2022 ambulatory MAE LANIER II Facility:[facility] [place] Start: 12-17-2022 End: 12-17-2022 Patient encounter procedure Mae Lanier OD Work Phone: Optometry Plan of Treatment Date Care Activity Detail Author Start: 02-19-2023 Influenza vaccination INFLUENZA (Sea son Ended) [facility] Start: 06-21-2022 ADVANCE DIRECTIVE DISCUSSION ADVANCE DIRECTIVE DISCUSSION [facility] Start: 06-21-2022 DEPRESSION ASSESSMENT DEPRESSION ASS ESSMENT [facility] Start: 05-24-2020 DIABETES SCREEN DIABETES SCREEN [facility] Start: 2005 BONE DENSITY BONE DENSITY [facility] Start: 2005 PNEUMOCOCCAL: 65+ (1 - PCV) PNEUMOCOCCAL: 65+ (1 - PCV) [facility] Start: 1990 SHINGRIX VACCINE (1 of 2) COREA GRIX VACCINE (1 of 2) [facility] Start: 1959 Urine microalbumin profile DTAP,TDAP ,TD (1 - Tdap) [facility] Start: 01-03-1941 COVID-19 VACCINE (#1) COVID-19 VACCI NE (#1) [facility] Payers Date Payer Category Payer Unknown [employer] [id number] 06/21/2022-Present [id number] [place] [address] Indemnity [id number] 06-21-2021 Medicare [id number] 09-27-2017 Private Health Insurance Social History Date Type Detail Facility Start: 12-17-2022 Tobacco smoking stat [facility] Ex-smoker [facility] History of tobacco use Current smoker [facility] Start: 12-17-2022 Tobacco use and exposure Smoke less tobacco non-user [facility] Start: 12-17-2022 Alcohol intake Current non-dr [facility] of alcohol (finding) [facility] Start: 1940 Sex Assigned At Not on file C [facility] Progress note 12-17-2022 Note Date & Type Note Facility 12-17-2022 Note HNO ID: [id number] Author: Mae Lanier II, OD Service: ? 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 [facility], OD [facility] Inst[facility] 12-17-2022 Patient Instructions Note Date & [...] Lanier II, OD documented in this encounter [facility] History of Present illness Narrative 12-17-2022 Mae [...] Lanier II, OD documented in this encounter [facility] Evaluation note Note Date & Type Note Facility documented in this encounter [facility] Summary Purpose Family History No Family History [...] DATE CREATED AUTHOR AUTHOR'S ORGANIZ ATION 12/15/2017 [facility] DATE CREATED AUTHOR AUTHOR'S ORGANIZ ATION 04/25/2018 [facility] DATE CREATED AUTHOR AUTHOR'S ORGANIZ ATION 12/18/2022 [facility] Source Comments (unrecognize d section and content) In the event this informatio n is protected by the Federal Confidentiality of Alcohol and Drug Abuse Patient Records regulations: The Federal rules restrict any use of the information to criminally investigate or prosecute any alcohol or drug abuse patient.[facility] Reason for Visit (unrecogniz ed section and [...] BE BASED ON THE PRIMARY CLINICAL RECORDS. [facility]. provides no warranty or guarantee of the accuracy or completeness of information in this document.
== END | disposition home or self-care (01) ==
LOC: MTRAD 15:22
PROVIDERS: PCP Family Medicine; Referring Provider Family Medicine; Visit Provider Family Medicine
DX: R07.81 Pleurodynia (principal)
CPT/HCPCS: 71101

== ENCOUNTER 2023-09-15 14:00 | Outpatient (RCR) | payer SELFPAY | END 2023-09-19 23:59 | LOC: NS 14:00 | PROVIDERS: PCP Family Medicine; Referring Provider Family Medicine; Visit Provider Family Medicine | DX: Z71.3 Dietary counseling and surveillance (principal) | CPT/HCPCS: 97802 ==

== ENCOUNTER 2023-11-22 12:44 | Outpatient (RCR) | payer SELFPAY | END 2023-12-19 23:59 | LOC: NS 12:44 | PROVIDERS: PCP Family Medicine; Referring Provider Family Medicine; Visit Provider Family Medicine | DX: Z71.3 Dietary counseling and surveillance (principal) | CPT/HCPCS: 97803 ==